=== PATIENT | female | born 1965 | race Hispanic/Latino ===

== ENCOUNTER 2016-09-24 11:43 | Emergency (ER) | payer MEDICARE, MEDICAID ==
[~2016-09-24] VITALS: Ht 160 cm; Wt 0.6 kg
[~2016-09-24 11:43] MED LIST: AMLO10TA5 PO; ASPI-351 PO; CARV12.5 PO; CITA10TA14 PO; FES300 PO; FURO20TA PO; INSLIS SQ; INSU100V10 SQ; LOSA1TAB69 PO; sodium bicarbonate PO
[2016-09-24 11:54] VITALS: BP 154/84; PULSE 83; RESP 18; O2SAT 99
--- NOTE | 2016-09-24 12:20 | ED.REPORT ---
HPI-Extremity Problem Upper Date of Service September 24, 2016 ED Provider: History of Present Illness: left index finger swelling. bites fingers. Dr. Tong at [facility] is primary care. Has an appointment on 10/05/2016. squeezed it doing ice. right hand dominant. 9/10 pain. Has been ongoing for a week. Nursing Notes Stated Complaint: INFECTION ON LEFT INDEX FINGER Chief Complaint: General Complaint Nursing Notes Reviewed: Yes Allergies: Coded Allergies: niacin (Verified Allergy, Unknown, UNKNOWN, 09/24/16) Scheduled ([sodium bicarbonate]) 1,300 MG PO BID AmLODIPine-Expunged Drug, Do Not Renew! (AmLODIPine-Expunged Drug, Do Not Renew! ) 10 Mg Tablet 10 MG PO DAILY Aspirin-Expunged Drug, Do Not Renew! (Aspirin-Expunged Drug, Do Not Renew!) 325 Mg Tablet 325 MG PO DAILY Carvedilol-Expunged Drug, Do Not Renew! (Carvedilol-Expunged Drug, Do Not Renew! ) 12.5 Mg Tablet 25 MG PO BID Citalopram-Expunged Drug, Do Not Renew! (Citalopram-Expunged Drug, Do Not Renew! ) 10 Mg Tablet 10 MG PO DAILY Ferrous Sulfate-Expunged Drug, Do Not Renew! (Feosol-Expunged Drug, Do Not Renew !) 325 Mg Tablet 325 MG PO TID Furosemide-Expunged Drug, Do Not Renew! (Lasix-Expunged Drug, Do Not Renew!) 20 Mg Tablet 40 MG PO TID INSULIN GLARGINE-Expunged Drug, Do Not Renew! (Lantus-Expunged Drug, Do Not Renew!) 100 Unit/1 Ml Vial 100 U SQ HS Insulin Lispro-Expunged Drug, Do Not Renew! (Humalog-Expunged Drug, Do Not Renew !) 100 U/Ml Vial 15-30 U SQ 10 mins before meals Losartan/HCTZ-Expunged Drug, Do Not Renew! (Losartan/HCTZ 50/12.5-Expunged, Do Not Renew!) 1 Each Tablet 1 EACH PO BID General Time Seen by MD: 12:19 Chief Complaint Finger injury left 2 Hx Obtained From: Patient Onset Occurred: 1 week ago Past Medical History Past Medical History Notes: PCP: Dr. Ashley Wetzel Quality Improvement Specialist: Dr. Hanson Past Medical History anemia, severe CVA peritonitis Reports: Diabetes mellitus, Hypertension, Stroke Reports: Renal failure Past Surgical History fistula x 2 PD cather throat abscess Reports: Gastric bypass, Tubal ligation Smoking History Former Smoker Social History Alcohol Use: "Social" Drug Use: Denies drug use Other Social History: Occupation seperated, no work or school 09/24/2016 Ambulatory Status Independent Review of Systems Basic Review of Systems Eyes: Vision NL, No discharge : No dysuria, No frequency Psychiatric: Normal thought content Physical Exam Initial Vital Signs Vital Signs (First) Date Time Temp Pulse Resp B/P Pulse Ox O2 Delivery O2 Flow Rate FiO2 09/24/16 11:54 36.9 83 18 154/84 99 Room Air Initial VS: Reviewed, Vital signs normal General/Constitutional: Well-developed, Well-nourished Head / Eyes: Atraumatic, Normocephalic, PERRL ENT: Mucous membranes moist, Conjunctiva normal, No scleral icterus Neck: Supple, Non-tender, Full range of motion Respiratory: Breath sounds normal, Clear to auscultation, No respiratory distress Cardiovascular: Regular rate & rhythm, Heart sounds normal, Intact distal pulses Abdomen / GI: Soft, Non-tender, No guarding, No rebound, No distention Back: No CVA tenderness Lymphatic: No lymphadenopathy Lower Extremities: Vascular intact, Neuro intact, No swelling, No tenderness Skin: Warm, Dry, No cyanosis Neurologic: Alert, Oriented, Nonfocal Psychiatric: Mood/affect normal, Behavior normal, Normal thought content General/Constitutional: Awake, Alert, No acute distress, Well appearing, Well developed, Well hydrated, Well nourished, Cooperative, Not toxic appearing Respiratory / Chest: Atraumatic, Breath sounds NL, Breath sounds = bilat, No respiratory distress Cardiovascular: Heart rate NL, Regular rhythm, Heart sounds NL, No gallop left index finger tip has mild swelling. no erthyma or increased warmth. fingernail has ecchymosis under nail. patient does not remember any injury Interpretation & Diagnostics X-Ray Interpretation Xray Interpretation: PROCEDURE: CT BRAIN WITHOUT CONTRAST ([id number]) INDICATIONS: sleepy TECHNIQUE: Noncontrast 4.5 mm thick angled axial sections acquired from the foramen magnum to the vertex, with coronal reformats. COMPARISON: [facility], CT, BRAIN ([facility]), 08/31/2015, 10:41. FINDINGS: Image quality: Diagnostic. Brain: There is no acute intra-axial or extra-axial hemorrhage. No extra-axial fluid collection is identified. There is no midline shift or mass effect. The orbits are grossly unremarkable. No large areas of diffusely decreased attenuation are evident within the brain to suggest diffuse cerebral edema. Scattered focal and small confluent areas of low-attenuation are present within the periventricular and deep white matter of the supratentorial brain, which has a similar appearance to the prior study. The ventricles and cortical sulci are moderately prominent. Bones: Calvarium and visualized facial bones are grossly intact. The imaged paranasal sinuses and mastoid air cells are clear. IMPRESSION: 1. No acute intracranial hemorrhage. 2. Chronic small vessel ischemic changes are similar to the prior study. 3. Parenchymal volume loss with moderate ventricular prominence is similar to prior studies. Please correlate clinically to exclude the possibility of normal pressure hydrocephalus. Dictated by: David Gutierrez M.D. on 09/24/2016 at 12:57 Approved by: David Gutierrez M.D. on 09/24/2016 at 12:59 Re-Eval/Medical Decision Med Decision/Clinical Course 51 year old female presents to the ER for evualation of left finger tip pain. Pain has been ongoing for a week. Patient has attempted squeezing with no relief. X-ray indicates a tuft fracture. No skin signs of infection. No sign of compartment syndrome. Discharge & Departure Impression: Primary Impression: Closed fracture of tuft of distal phalanx of finger Encounter type: initial encounter Qualified Code: S62.639A - Displaced fracture of distal phalanx of unspecified finger, initial encounter for closed fracture Disposition: Home Patient Instructions: Finger Fracture (ED) Additional Instructions: X-ray indicates a finger fracture. You are being splinted. There is no sign of infection at this time. Do not chew your fingers or squeeze them. Seek medical care sooner than later. Can use ibuprofen 600 mg 3 times a day for 5 days. Can use hydrocodone 1 at night as needed for severe unrelenting pain. Please call Dr. Chopra for follow up. I am sorry this happened. Referrals: Ashley Wetzel MD (PCP) Artie Chopra MD EDSupervising Provider for APC: James Steel MD copies to: Ashley Wetzel MD; Artie Chopra MD, Sue ARNP September 24, 2016 12:20
--- NOTE | 2016-09-24 13:30 | DRSVH ---
PROCEDURE: X-RAY FINGERS, TWO VIEWS INDICATIONS: pain swelling TECHNIQUE: AP hand, 2 views of the second finger(s) acquired. COMPARISON: None. FINDINGS: Bones: There is tuft fracture of the second distal phalanx. No suspicious bony lesions. Soft tissues: No suspicious soft tissue calcifications. Vascular calcification consistent with athe rosclerosis. Soft tissue swelling in the distal second finger. IMPRESSION: Tuft fracture of the second distal phalanx. Dictated by: Corine Vazquez M.D. on 09/24/2016 at 13:26 Approved by: Corine Vazquez M.D. on 09/24/2016 at 13:28
[2016-09-24 15:23] VITALS: BP 200/95; PULSE 74; O2SAT 100
== END 2016-09-24 15:20 | disposition home or self-care (01) ==
LOC: SED 11:43
DX: S62.631A Displaced fracture of distal phalanx of left index finger, initial encounter for closed fracture (principal); X58.XXXA Exposure to other specified factors, initial encounter; Y93.89 Activity, other specified; Y92.89 Other specified places as the place of occurrence of the external cause; Y99.8 Other external cause status; I10 Essential (primary) hypertension; E11.9 Type 2 diabetes mellitus without complications; Z86.73 Personal history of transient ischemic attack (TIA), and cerebral infarction without residual deficits; Z87.891 Personal history of nicotine dependence; Z88.8 Allergy status to other drugs, medicaments and biological substances

== ENCOUNTER 2017-01-15 15:08 | Inpatient (IN) | payer MEDICARE, MEDICAID ==
[~2017-01-15] VITALS: Ht 160 cm; Wt 58.6 kg
[2017-01-15 15:13] VITALS: BP 170/96; PULSE 82; RESP 15; O2SAT 99
--- NOTE | 2017-01-15 15:18 | ED.REPORT ---
HPI-General Illness Date of Service Jan 15, 2017 ED Provider: Dr. Abrams Pt is a 51 y/o female w/ a hx of ESRD on PD daily, HTN, DM, CVA, gastric bypass in 2014, prior peritonitis (2/2 PD catheter), presenting to the ED with her c/o intermittent band-like upper abdominal pain onset yesterday. The patient has been experiencing intermittent, severe, band-like upper abdominal pain for 2 days which is exacerbated by eating or drinking. Pt c/o associated nausea, vomiting. She noticed a very small amount of pink blood in her vomit. Her pain is relieved by Aleve for which she has been taking 2 of every 2 hours despite knowing that it is bad for her renal failure. Pt denies fever, chills. She still makes urine. Nursing Notes Stated Complaint: SEVERE ABDOMINAL PAIN Chief Complaint: Female Abdominal Pain Nursing Notes Reviewed: Yes Allergies: Coded Allergies: niacin (Verified Allergy, Unknown, UNKNOWN, 09/24/16) Scheduled Aspirin Chew (Aspirin Chew) 81 Mg Chew 81 MG PO DAILY Calcium Acetate (Calcium Acetate) 667 Mg Capsule 6 CAPSULE PO TID Losartan Potassium (Losartan Potassium) 50 Mg Tablet 50 MG PO DAILY Ondansetron (Ondansetron) 4 Mg Tablet 4 MG PO TID Venlafaxine (Venlafaxine) 25 Mg Tablet 25 MG PO HS Scheduled PRN Gabapentin (Gabapentin) 300 Mg Capsule 300 MG PO HS PRN PRN For Pain Ropinirole (Ropinirole) 1 Mg Tablet 1 MG PO HS PRN PRN For Pain oxyCODONE-Acetaminophen 5-325 mg (oxyCODONE-Acetaminophen 5-325 mg) 1 Each Tablet 1-2 TABLET PO every 4-6hrs PRN PRN For Pain General Time Seen by MD: 15:17 Chief Complaint Abdominal pain Hx Obtained From: Patient Arrived By: Walk-in Sudden in Onset?: No Onset Occurred: Yesterday Symptom Duration: Intermittent Location: : Abdomen Quality: Painful Severity: Current: Mild Severity: Maximum: Severe Similar Sx Previous: No Past Medical History Past Medical History Notes: PCP: Dr. Ashley Wetzel Tape Recorder Mechanic: Dr. Hanson Past Medical History Hx severe anemia CVA Hx peritonitis ESRD on PD daily Hypertension Diabetes Past Surgical History fistula x 2 PD cather throat abscess gastric bypass 2015 Tubal ligation Smoking History Former Smoker Social History Alcohol Use: "Social" Drug Use: Denies drug use Other Social History: Occupation seperated, no work or school 09/24/2016 Ambulatory Status Independent Review of Systems Full Review of Systems Constitutional: Denies: Chills, Fever GI: Reports: Abdominal pain, Hematemesis, Nausea, Vomiting Complete sys rev & neg: except as marked. Physical Exam Vital Signs Vital Signs Date Time Temp Pulse Resp B/P Pulse Ox O2 Delivery O2 Flow Rate FiO2 01/15/17 15:13 36.4 82 15 170/96 99 Room Air Initial VS: Reviewed, Vital signs abnormal Head / Eyes: Atraumatic, Normocephalic ENT: Mucous membranes moist, Conjunctiva normal Neck: Full range of motion Respiratory: Breath sounds normal, Clear to auscultation, No respiratory distress Cardiovascular: Regular rate & rhythm, Heart sounds normal, Intact distal pulses Extremities: Vascular intact, Neuro intact, No swelling Skin: Warm, Dry, No cyanosis Neurologic: Alert, Oriented, Nonfocal Psychiatric: Mood/affect normal, Behavior normal, Normal thought content General/Constitutional: Awake, Alert, No acute distress, Cooperative, Not toxic appearing Appearance / Presentation: Positive: Uncomfortable Abdomen: Atraumatic, Soft, No guarding, No rebound, No distention, No palpable mass PD cath in the RLQ without surrounding erythema or purulent discharge Well healed laparoscopic scars Diffuse tenderness mostly about the epigastrium and around the periumbilical region Interpretation & Diagnostics Lab Results Interpretation Result Diagram: 01/15/17 1556 01/15/17 1556 Test 01/15/17 15:56 01/15/17 16:35 White Blood Count 5.1th/mm3 (3.8-10.1) Red Blood Count 3.88mil/mm3 (3.90-5.20) Hemoglobin 11.5g/dL (12.0-15.6) Hematocrit 35.6% (35.0-46.0) Mean Corpuscular Volume 91.8fL (81-100) Mean Corpuscular Hemoglobin 29.6pg (27.0-35.0) Mean Corpuscular Hemoglobin Concent 32.3% (32.0-37.0) Red Cell Distribution Width 12.8% (12.3-15.4) Platelet Count 275bil/L (150-400) Neutrophils (%) (Auto) 61.9% (40-74) Lymphocytes (%) (Auto) 23.9% (14-46) Monocytes (%) (Auto) 7.3% (4-12) Eosinophils (%) (Auto) 5.7% (0-5) Basophils (%) (Auto) 1.2% (0-3) Sodium Level 141mEq/L (134-144) Potassium Level 4.2mEq/L (3.5-5.2) Chloride Level 107mEq/L (97-108) Carbon Dioxide Level 18mmol/L (18-29) Blood Urea Nitrogen 37mg/dL (6-24) Creatinine 6.30mg/dL (0.57-1.00) Estimat Glomerular Filtration Rate 10mL/min (>59) Glucose Level 98mg/dL (60-99) Lactic Acid Level 1.2mmol/L (0.4-2.0) Calcium Level 7.8mg/dL (8.5-10.1) Magnesium Level 2.4mg/dL (1.6-2.6) Total Bilirubin 0.2mg/dL (0.0-1.2) Aspartate Amino Transf (AST/SGOT) 13U/L (0-50) Alanine Aminotransferase (ALT/SGPT) 15U/L (0-32) Alkaline Phosphatase 62U/L (25-150) Total Protein 5.6g/dL (6.4-8.4) Albumin 2.6g/dL (3.4-5.0) Lipase 61U/L (13-60) Hold Vazquez Top Tube Received (Received) Hold Urine Received (Received) CT Abd / Pelvis Interpretation IMPRESSION: 1. In the absence of contrast, no acute findings to explain epigastric and periumbilical abdominal pain. 2. Trace free abdominal and pelvic fluid, expected with peritoneal dialysis catheter. Dictated by: Daniel Matias M.D. on 01/15/2017 at 16:46 Approved by: Daniel Matias M.D. on 01/15/2017 at 16:54 Study type: Abdominal CT no contrast Interpretation / Wet Read by: Interpret - Radiologist Re-Eval/Medical Decision Med Decision/Clinical Course Pt is a 51 y/o female w/ a hx of ESRD on PD daily, HTN, DM, CVA, gastric bypass in 2014, prior peritonitis (2/2 PD catheter), presenting to the ED with her c/o intermittent band-like upper abdominal pain onset yesterday. Patient has never had pain like this before. The pain is worse with eating and associated with nausea. Patient has been taking copious amounts of Aleve ever since her pain started. She reports taking 2 tablets of Aleve every 2 hours for the last 2 days despite previously being told not to take NSAIDs due to her underlying renal disease. Upon arrival in the emergency department the patient appears quite uncomfortable with diffuse abdominal tenderness most notable in the epigastrium. Meds given: IVF, IV Zofran, 40 mg IV pantoprazole, Dilaudid Labs notable as below: CBC: unremarkable CMP: BUN 37 near baseline, creatinine 6.3 near baseline, Lipase mildly elevated at 61 Given patient's location of pain, history of gastric bypass and very excessive NSAID use I am concerned for possible peptic ulcer disease or even perforated ulcer. Differential diagnosis also includes peritonitis secondary to indwelling peritoneal dialysis catheter. The patient is less suggestive of acute biliary disease though this also remains on the differential diagnosis. CT abdomen and pelvis without contrast obtained as below: 1. In the absence of contrast, no acute findings to explain epigastric and periumbilical abdominal pain. 2. Trace free abdominal and pelvic fluid, expected with peritoneal dialysis catheter.` While this imaging study is somewhat reassuring given the fact that the patient has an indwelling catheter makes it very difficult to rule out free air secondary to perforated ulcer. That being said, my suspicion at this time for perforated ulcer is relatively low. I remain concerned about bacterial peritonitis and peritoneal fluid has been sent from the patient's PD catheter for cell count, differential, Gram stain and culture. Patient was discussed with him and he would like to be called back with these results prior to the patient being initiated on antibiotics. Given my concern for gastric etiologies of the pain, especially in the setting of previous gastric bypass surgery patient was discussed with GI collection clerk. They would like the patient admitted to the hospital with plan for endoscopy in the morning and right upper quadrant ultrasound to rule out any biliary etiologies. All the workup is not entirely complete this patient will require admission regardless of the outcome of these studies. Patient was signed out to the accepting hospitalist with plan to follow-up results of peritoneal fluid studies and discussed this with nephrology as well as upper endoscopy in the morning. Antibiotics were held for the moment pending results of peritoneal fluid. Patient remained stable and in no apparent distress reported significant symptom improvement after the above medications. Transferred in stable condition. Source of Hx: Old records Time of Eval: 17:17 Re-Evaluation/Progress Note: Pt rechecked. Remains tender with some pain. Informed pt of need for admission. Pt understands and agrees with plan for admission. All questions addressed. Consultation #1: Referral / Consult Name: Kedar Powers DO Consulted With: Nephrology Call Returned at: 17:15 Plant Protection Guard: Agrees with eval, Agrees with plan Note: Recommends send peritoneal fluid for cell count, diff, and culture Consultation #2: Referral / Consult Name: Meng Hernandez MD Call Returned at: 17:18 Plant Protection Guard: Agrees with eval, Agrees with plan Note: Consulted GI. Recommends Protonix, Carafate, US abdomen, will scope tomorrow Consultation #3: Referral / Consult Name: Kushal Coon Consulted With: Hospitalist Call Returned at: 17:29 Plant Protection Guard: Will see patient, Agrees with eval, Agrees with plan, Accepts admit Counseled Regarding: Diagnosis, Lab results, Need for admission Discharge & Departure Primary Impression: Abdominal pain Abdominal location: epigastric Qualified Code: R10.13 - Epigastric pain Additional Impressions: Excessive use of nonsteroidal anti-inflammatory drugs (NSAIDs) ESRD (end stage renal disease) Patient on peritoneal dialysis History of gastric bypass Disposition: ADMITTED TO HOSPITAL Discharge Condition All VS Reviewed: Yes Condition: Stable Referrals: Karina Tong DO (PCP) Scribe Attestation Portions of this note were transcribed by Santos Suh. I, Dr. Abrams personally performed the history, physical exam and medical decision-making; I reviewed and confirmed the accuracy of the information in the transcribed note. copies to: Karina Tong Beck O MD Jan 15, 2017 15:18 SANTOS SUH Jan 15, 2017 16:02
[2017-01-15] MEDS ORDERED: ROPI1TAB3 PO (15:53)
[2017-01-15] MEDS ORDERED: CALC667C9 PO (15:53)
[2017-01-15] MEDS ORDERED: GABA-502 PO (15:53)
[2017-01-15] MEDS ORDERED: ONDA-53 PO (15:53)
[2017-01-15] MEDS ORDERED: VENL25TA4 PO (15:53)
[2017-01-15] MEDS ORDERED: OXYC1TAB24 PO (15:53)
[2017-01-15] MEDS ORDERED: LOSA50TA37 PO (15:53)
[2017-01-15] MEDS ORDERED: ASPI81TA3 PO (15:53)
[2017-01-15] MEDS ORDERED: Pantoprazole 4 mg/mL 10 mL Inj IVPUSH ONE ×3 (16:05→20:35)
[2017-01-15] MEDS ORDERED: Ondansetron 2 mg/mL 2 mL Inj IVPUSH ONE (16:05)
[2017-01-15] MEDS ORDERED: 0.9% Sodium Chloride 1,000 ML IV ONE (16:05)
[2017-01-15 16:07] LABS: BASOPHILS % (AUTO) 1.2 % (0-3); EOSINOPHILS % (AUTO) 5.7 % (0-5); MONOCYTES % (AUTO) 7.3 % (4-12); Mean Corpuscular Hemoglobin 29.6 pg (27.0-35.0); Mean Corpuscular Volume 91.8 fL (81-100); NEUTROPHILS % (AUTO) 61.9 % (40-74); Platelet Count 275 bil/L (150-400)
[2017-01-15 16:27] LABS: Magnesium 2.4 mg/dL (1.6-2.6)
[2017-01-15] MEDS: HYDROmorphone 0.5 mg/0.5 mL iSecure Syringe IVPUSH PRN ×2 (16:27→19:42)
--- NOTE | 2017-01-15 16:56 | DRSVH ---
PROCEDURE: CT KUB ([id number]) INDICATIONS: 51 year-old female with end-stage renal disease and prior gastric bypass surgery, now wi th epigastric and periumbilical abdominal pain. TECHNIQUE: Noncontrast 5 mm thick sections acquired from the diaphragms to the symphysis. 5 mm thick coronal an d sagittal reformats were then performed. For radiation dose reduction, the following was used: aut omated exposure control, adjustment of mA and/or kV according to patient size. COMPARISON: [facility], CT, CT KUB, 02/28/2015, 7:08. FINDINGS: Image quality: Excellent. Lung bases: Lung bases are clear. Heart size is normal. Urinary system: Both kidneys are normal in size. No kidney stones. No hydronephrosis or perinephri c fat stranding. Both ureters appear non-dilated throughout their expected courses. Bladder wall th ickness is normal; no calcified bladder stones. Other solid organs: Liver and spleen are normal in size. Gallbladder wall thickness is normal. Vincent creas is normal in contours. No adrenal nodules. Peritoneum and bowel: Unenhanced bowel loops demonstrate normal wall thickness and caliber. The jayesh ent is status post gastric bypass surgery. There is small free abdominal and pelvic fluid. No free ai r. Nodes and vessels: No retroperitoneal or mesenteric adenopathy by size criteria. Aorta and inferior vena cava are normal in caliber, with aortoiliac atherosclerosis. There is extensive small vessel at herosclerosis as well, consistent with background diabetes mellitus and/or secondary hyperparathyroid ism in the setting of end-stage renal disease. Abdominal wall: No ventral hernias. Right periumbilical peritoneal dialysis catheter is again noted . Pelvis: No free pelvic fluid. No inguinal hernias or adenopathy. Uterus is normal in size, with in trauterine contraceptive device again noted. The ovaries are not well seen. Bones: No suspicious bony lesions. No vertebral body compression fractures. IMPRESSION: 1. In the absence of contrast, no acute findings to explain epigastric and periumbilical abdominal pa in. 2. Trace free abdominal and pelvic fluid, expected with peritoneal dialysis catheter. Dictated by: Daniel Matias M.D. on 01/15/2017 at 16:46 Approved by: Daniel Matias M.D. on 01/15/2017 at 16:54
[2017-01-15] MEDS ORDERED: Alum-Mag Hydrox-Simeth 30 mL Suspension PO PRN ×2 (17:25→19:35)
[2017-01-15] MEDS ORDERED: Ondansetron 2 mg/mL 2 mL Inj IVPUSH PRN ×2 (17:25→19:35)
[2017-01-15] MEDS: Sucralfate 100 mg/mL 10 mL Suspension PO SCH (18:01)
[2017-01-15 19:20] VITALS: BP 185/94; PULSE 69; RESP 18; O2SAT 99
[2017-01-15] MEDS ORDERED: LidocaineVisc 2%:Antacid 1:1 10 mL Syringe PO ONE (19:35)
--- NOTE | 2017-01-15 19:57 | PCM.HPMED ---
Subjective Date of Service Jan 15, 2017 Primary Provider: Admitting Physician: Kobe Vieira MD Primary Care Physician: Karina Tong DO Attending Physician: Kobe Vieira MD Admit Status: From the Emergency Department Chief Complaint: Periumbilical and epigastric abdominal pain, nausea, with very small blood- tinged vomiting History of Present Illness: This is a pleasant 51 y/o female with hx of chronic ESRD on daily peritoneal dialysis since 2011, (history of left wrist fistula failure early 2011, history of left antecubital fossa fistula which is functional but not utilized since 2011),with baseline creatinine of 6.7 in December 2016, history of HTN on losartan 50 mg daily, DM type 2 diagnosed age 28 and was on insulin until her gastric bypass, currently not on anti-glycemic medications (patient states she now has a history of hypoglycemic events rather than hyperglycemic events), history of CVA 2009, gastric bypass in 2012, prior peritonitis secondary to PD catheter 2013, and chronic back pain on Percocet 09/08/2024 milligram tablets every 4 hours, who presented with complaint of intermittent band-like upper abdominal pain and periumbilical pain onset Tuesday morning, 01/14/2017. The patient had been experiencing intermittent, severe stabbing and cramping, band- like upper abdominal pain for 2 days which is exacerbated by eating or drinking. Patient described pain as 10 out of 10 in the emergency department. Patient's pain is currently 8 out of 10 on 0.5 mg of IV Dilaudid. Associated symptoms included nausea, vomiting. Patient had vomited once this morning and then again once this evening with a very small amount of pink blood in her vomit. She has never experienced blood in her vomitus prior. Of note patient does have a history of intractable nausea and vomiting after eating. Her abdominal pain is relieved by NSAIDs medication (Aleve) 4 Aleve today and 8 Aleve yesterday despite knowing that it is bad for her renal failure. Of note patient reports a very high blood pressure reading of 298/198 at home prior to presenting to the ED. Patient states that her blood pressures have been high for the past 24 hours or so and she took a double dose of her losartan blood pressure medication today. Patient utilizes her own home blood pressure cuff. Here patient's blood pressures have been 200 systolic. Patient denied fever, chills, rigors, sweats, shortness of breath, cough, dyspnea, chest pain, known family history of tuberculosis, personal history of tuberculosis, constipation, diarrhea, dysuria, hematuria, melena, hematochezia. She still makes urine, and reports orange colored urine since having taken an [id number] medication , she thought she might have a urinary tract infection. Patient is a nonsmoker , denies drug use, rarely drinks a glass of wine. Patient was temporarily taken off of the kidney transplant list given her current medical condition. Of note patient was seen by GI in 12/29/[address] Hamilton for persistent and refractory nausea vomiting, which typically is sudden in onset when it occurs and associated with eating food. Dr. Hamilton had planned on doing an EGD and that was scheduled for January 20. Per his note on 12/29/2016 the patient typically continues to vomit until her stomach is emptied. Her symptoms are typically improved with antinausea medication. Patient did have a EGD done prior by Dr. Graham 2012. EGD at that time showed a small erosion in the duodenum, as well as esophagitis. In the ED: Both nephrology and GI were consulted. The patient peritoneal fluid from peritoneal dialysis catheter has been sent for cell count, differential, Gram stain and culture,and patient was placed on IV Protonix for suspected upper GI bleed given history of gastric ulcers and NSAID use. CT KUB showed: In the absence of contrast, no acute findings to explain epigastric and periumbilical abdominal pain. Trace free abdominal and pelvic fluid, expected with peritoneal dialysis catheter. Patient received single 1 L IV fluids normal saline, dose of IV Protonix 40 mg. 1000 mg of Carafate, Zofran IV and IV Dilaudid for pain. Vital signs: Showed temperature 36.5, pulse 69, respiratory rate 18, BP 185/94 map 124, O2 99% on room air. Hemogram showed: CBC is 5.1, PMNs 61.9% without evidence of bands, H/H was 11.5/ 35.6, platelets were normal at 275, patient did have elevated eosinophils 5.7 Chemistry panel: A BUN of 37, creatinine 6.30 in a patient with a baseline creatinine of 6.7 back in December. Lactic acid was 1.2, calcium was low at 7.8 Review of Systems: A comprehensive review of systems was conducted and was negative except as mentioned in history of present illness. Allergies Coded Allergies: niacin (Verified Allergy, Unknown, UNKNOWN, 09/24/16) Home Medications Scheduled Aspirin Chew (Aspirin Chew) 81 Mg Chew 81 MG PO DAILY Calcium Acetate (Calcium Acetate) 667 Mg Capsule 6 CAPSULE PO TID Losartan Potassium (Losartan Potassium) 50 Mg Tablet 50 MG PO DAILY Ondansetron (Ondansetron) 4 Mg Tablet 4 MG PO TID Venlafaxine (Venlafaxine) 25 Mg Tablet 25 MG PO HS Scheduled PRN Gabapentin (Gabapentin) 300 Mg Capsule 300 MG PO HS PRN PRN For Pain Ropinirole (Ropinirole) 1 Mg Tablet 1 MG PO HS PRN PRN For Pain oxyCODONE-Acetaminophen 5-325 mg (oxyCODONE-Acetaminophen 5-325 mg) 1 Each Tablet 1-2 TABLET PO every 4-6hrs PRN PRN For Pain PMH Hx severe anemia CVA 2009 Hx peritonitis 2013 ESRD on PD daily Hypertension Diabetes2 not on insulin not on diabetic medication, with associated neuropathy Carotid artery stenosis IUD Chronic kidney disease stage IV Surgical History fistula x 2 Currently with PD cather throat abscess gastric bypass 2013 Tubal ligation Family History No family history of TB Social History Hx Alcohol Use: Yes (0.5 glass wine on special occasions) Hx Substance Use: No Hx Tobacco Use: Yes (20 YEARS AGO SMOKED. ) Smoking Status: Former Smoker Living Arrangement: with Family Exam Vital Signs Vital Sign - Last Date Time Temp Pulse Resp B/P Pulse Ox O2 Delivery O2 Flow Rate FiO2 01/15/17 19:20 36.5 69 18 185/94 99 Room Air Exam General: Alert Oriented 3 no acute distress, speaking full sentences, no apparent distress but complaining of abdominal pain 8 out of 10 HEENT: NC/AT, eyes, PERRLA, EOMI, positive scleral icterus, neck, soft supple, no adenopathy, no JVD, no masses, no thyromegaly, throat mucous membranes pink and moist, no erythema, no exudates, no tonsillar swelling, no uvular deviation. Lungs: CTAB all pitt, no wheezes, no rhonchi, no crackles, no adventitious lung sounds, no use of accessory muscles of respiration, good air movement, good respiratory effort. Heart: Regular rate and rhythm, no murmur, S1-S2 present, no rub, no click, no distant heart sounds, radiation fistula sounds from left extremity to the chest. Abdomen: Soft, diffusely tender especially involving the periumbilical and epigastric areas as well as right lower quadrant, nondistended, bowel sounds active, no rebound, voluntary guarding, she has a peritoneal dialysis catheter placed in the right lower quadrant. Genitourinary: No CVA tenderness, no suprapubic tenderness, no Mckeon catheter, Extremities: Patient has a left upper extremity fistula that is functional, a failed left wrist fistula scar, there is a peripheral line in the right antecubital fossa, pulses equal and symmetric upper/lower extremity including radial and dorsalis pedis, no edema Neurologic: Grossly neurologically intact, PT in full sentences, no focal neurological signs Skin: Warm dry and intact without rash Psychiatric: Mood is cheerful and mood and affect are congruent and appropriate. Lab and Diagnostics Result Diagram: 01/15/17 1556 01/15/17 1556 X-Rays, CTs and MRIs Date of Service: 01/15/17 PROCEDURE: CT KUB INDICATIONS: 51 year-old female with end-stage renal disease and prior gastric bypass surgery, now with epigastric and periumbilical abdominal pain. FINDINGS: Image quality: Excellent. Lung bases: Lung bases are clear. Heart size is normal. Urinary system: Both kidneys are normal in size. No kidney stones. No hydronephrosis or perinephric fat stranding. Both ureters appear non-dilated throughout their expected courses. Bladder wall thickness is normal; no calcified bladder stones. Other solid organs: Liver and spleen are normal in size. Gallbladder wall thickness is normal. Pancreas is normal in contours. No adrenal nodules. Peritoneum and bowel: Unenhanced bowel loops demonstrate normal wall thickness and caliber. The patient is status post gastric bypass surgery. There is small free abdominal and pelvic fluid. No free air. Nodes and vessels: No retroperitoneal or mesenteric adenopathy by size criteria. Aorta and inferior vena cava are normal in caliber, with aortoiliac atherosclerosis. There is extensive small vessel atherosclerosis as well, consistent with background diabetes mellitus and/or secondary hyperparathyroidism in the setting of end-stage renal disease. Abdominal wall: No ventral hernias. Right periumbilical peritoneal dialysis catheter is again noted. Pelvis: No free pelvic fluid. No inguinal hernias or adenopathy. Uterus is normal in size, with intrauterine contraceptive device again noted. The ovaries are not well seen. Bones: No suspicious bony lesions. No vertebral body compression fractures. IMPRESSION: 1. In the absence of contrast, no acute findings to explain epigastric and periumbilical abdominal pain. 2. Trace free abdominal and pelvic fluid, expected with peritoneal dialysis catheter. Dictated by: Daniel Matias M.D. on 01/15/2017 at 16:46 Approved by: Daniel Matias M.D. on 01/15/2017 at 16:54 Assessment & Plan This is a pleasant 51-year-old female history of end-stage renal disease on daily peritoneal dialysis, hypertension, diabetes, history of CVA gastric bypass in 2012 with a prior history of peritonitis from peritoneal dialysis catheter who presented to the ED with acute onset intermittent bandlike upper abdominal and epigastric pain. Associated with pink blood-tinged vomitus. Patient was admitted for possible GI bleed and acute bacterial peritonitis. # Acute abdominal pain, POA - Perforated viscus is difficult to rule out given history of abdominal peritoneal dialysis. GI was consulted. Placed on Protonix drip. - Suspect acute GI bleed secondary to history of ulcers and NSAID use. - Vital signs: Showed temperature 36.5, pulse 69, respiratory rate 18, BP 185/ 94 map 124, O2 99% on room air. - Hemogram showed: CBC is 5.1, PMNs 61.9% without evidence of bands, H/H was 11.5/35.6, platelets were normal at 275, patient did have elevated eosinophils 5.7 - CT KUB showed: In the absence of contrast, no acute findings to explain epigastric and periumbilical abdominal pain. Trace free abdominal and pelvic fluid, expected with peritoneal dialysis catheter. - History of esophagitis and duodenal ulcer on EGD in [address] Grhaam - She was seen by Dr. Hamilton in December of this year who planned on doing EGD at that time, secondary to intractable nausea and vomiting. - GI was consulted in the ED and recommended EGD, Protonix drip. EGD in the morning. - Nothing by mouth - Abdominal ultrasound to rule out biliary etiologies - Patient currently nothing by mouth for procedure - Started Protonic drip # End stage renal disease on peritoneal dialysis daily, POA - Patient gets daily peritoneal dialysis since 2011, with PD catheter placed in the right lower quadrant. She has functional left upper extremity fistula although this is not utilized. - Patient reports 2 days of taking NSAID Aleve for her abdominal pain. - High suspicion for acute bacterial peritonitis despite normal white blood cell count remains. Peritoneal dialysis fluid was sent for cell count, differential, Gram stain and culture per nephrology recommendation. - Nephrology Dr. Powers to be notified by phone of the results prior to starting antibiotics. - Patient's baseline creatinine is 6.7 in December 2016, currently creatinine of 6.5. - Chemistry panel for: A BUN of 37, creatinine 6.30 in a patient with a baseline creatinine of 6.7 back in December. Lactic acid was 1.2, calcium was low at 7.8 - Nephrology has been consulted by phone and is aware of the patient. - KUB CT showed no peritoneal fluid, the abdomen was not tapped. # Hypocalcemia, POA - Likely secondary to chronic kidney disease - Total protein 5.6, albumin 2.6 # Mildly elevated lipase, POA - Lipase 61 # Hypoglycemia, POA - History of Diabetes mellitus, previously on insulin. She states since she had her gastric bypass she is not required insulin or diabetic medications and has problems with hypoglycemia - Fingerstick glucose on admit 70 - D50 once with Finger stick glucose in 2 hours Chronic problems #Hx severe anemia - Likely secondary to end-stage renal disease # Hx of CVA - On aspirin 81 mg at home - We will hold aspirin for now, and restart as soon as GI bleed ruled out # Hx peritonitis - 2013 # Hypertension - Patient on losartan 50 mg at home daily - We will continue losartan - She reports she took 2 on day of admission for blood pressures to 298/190, - Gave labetalol 20 mg IV once for blood pressure 205 systolic - We will continue to monitor blood pressures # Diabetes mellitus - Not currently on insulin ordered antidiabetic medication - Now she has a problem with hypoglycemia - Fingerstick glucose on admit 70 - D50 once with Finger stick glucose in 2 hours # Chronic pain - On Percocet 09/08/2024 at home every 4 hours, will hold by mouth meds for expected upper endoscopy in the morning Disposition: Admitted to in patient service with expected length of stay greater than 2 days, secondary to severity of presenting symptoms, treatment plan, complexity of clinical work up, and risk of adverse events. CODE STATUS: Full code PCP: Dr. Ashley Wetzel [employer] Operator: Dr. Hanson Urologist Dr. Solis DVT PE prophylaxis: SCD's Contact: Willis Carrera [phone] VTE Prophylaxis: SCDs Resuscitation Status: CPR: Attempt Resuscitation Attending Statement The patient was seen and examined together with Dr. Cheung on 01/15 and I agree with the history, exam and plan as outlined in the note above. Robinson Cheung DO Jan 15, 2017 19:57 Kobe Vieira MD Jan 16, 2017 03:37
--- NOTE | 2017-01-15 20:25 | DRSVH ---
PROCEDURE: US ABDOMEN, LIMITED ([id number]) INDICATIONS: 51 year-old female with right upper quadrant abdominal pain. Assess for gallstones. TECHNIQUE: Real-time focused scanning was performed of the abdomen, with image documentation. COMPARISON: [facility], CT, CT KUB, 01/15/2017, 16:24. FINDINGS: No gallstones or biliary sludge. Gallbladder wall thickness is normal. No pericholecystic fluid. Extrahepatic bile duct is nondilated at 3 mm. Liver is normal in overall size. Trace free abdo ruth fluid is again noted, secondary to peritoneal dialysis. IMPRESSION: No sonographic evidence for gallstones or acute cholecystitis. Dictated by: Daniel Matias M.D. on 01/15/2017 at 20:20 Approved by: Daniel Matias M.D. on 01/15/2017 at 20:23
[2017-01-15] MEDS: 0.9% Sodium Chloride 1,000 ML IV SCH (20:40)
[2017-01-15 20:50] VITALS: BP 205/98; PULSE 72; RESP 16; O2SAT 100
[2017-01-15] MEDS ORDERED: Labetalol 5 mg/mL 20 mL Inj IVPUSH ONE (20:50)
[2017-01-15] MEDS ORDERED: HYDROmorphone 0.5 mg/0.5 mL iSecure Syringe IVPUSH ONE (21:20)
[2017-01-15] MEDS ORDERED: HYDROmorphone 0.5 mg/0.5 mL iSecure Syringe IVPUSH PRN (21:20)
[2017-01-15 21:24] LABS: INR 0.87 ratio
[2017-01-15] MEDS: Pantoprazole Inj 80 MG in 0.9% Sodium Chloride 80 ML IV SCH (22:01)
[2017-01-15] MEDS ORDERED: Dextrose 10% 250 ML IV ONE (22:05)
[2017-01-15 23:51] VITALS: BP 154/75; PULSE 65; RESP 16; O2SAT 99
[2017-01-16] VITALS (10 sets, daily range): BP systolic 107–176; BP diastolic 62–90; PULSE 63–73; RESP 14–18; O2SAT 96–100
[2017-01-16] MEDS: Pantoprazole Inj 80 MG in 0.9% Sodium Chloride 80 ML IV SCH ×2 (06:01→18:11)
[2017-01-16] MEDS: 0.9% Sodium Chloride 1,000 ML IV SCH ×3 (06:01→13:27)
--- NOTE | 2017-01-16 06:22 | NUR ---
Admit Note Pt. arrived to the floor via gurney with ED staff approx. 2029, Alert and oriented, transfer self to bed independently, steady gait, pt. seen by Dr. rey around 2100, call light in reach at all times, hourly checks, IV protonix running, will continue to monitor.
[2017-01-16 06:57] LABS: BASOPHILS % (AUTO) 1.3 % (0-3); EOSINOPHILS % (AUTO) 6.3 % (0-5); MONOCYTES % (AUTO) 8.1 % (4-12); Mean Corpuscular Hemoglobin 29.4 pg (27.0-35.0); Mean Corpuscular Volume 92.5 fL (81-100); NEUTROPHILS % (AUTO) 50.8 % (40-74); Platelet Count 237 bil/L (150-400)
[2017-01-16] MEDS: Sucralfate 100 mg/mL 10 mL Suspension PO SCH ×3 (08:14→18:11)
[2017-01-16] MEDS ORDERED: Glucose 40% Oral Gel 15 Gm Tube PO PRN (09:00)
[2017-01-16] MEDS ORDERED: Dextrose 10% 1,000 ML IV SCH (09:10)
[2017-01-16] MEDS ORDERED: Dextrose 5% 1,000 ML IV SCH (09:40)
--- NOTE | 2017-01-16 09:55 | CONS ---
[address] [address] CONSULTATION REPORT PATIENT: MADY LYNN : 1965 MR#: [id number] ADMIT: 01/15/2017 JOB ID: [id number] DATE OF SERVICE: 01/16/2017 REASON FOR CONSULTATION: Abdominal pain. HISTORY OF PRESENT ILLNESS: A 51-year-old female with history of end-stage renal disease on peritoneal dialysis since 2011, history of hypertension, diabetes type 2, status post Kimi-en-Y gastric bypass presents for consultation for epigastric pain. The patient states that she has had epigastric pain since Tuesday morning, 02/15, sharp, bandlike, stabbing, crampy, radiating at that point in time. The patient was given a GI cocktail in the ED which helped decrease her pain. The patient also had some intractable nausea and vomiting. The patient states that after her pain started she took Aleve at that point in time. The patient denies a history of NSAID use or alcohol prior to her pain. The patient never had an EGD or colonoscopy per the patient and denies family history of colon cancer, inflammatory bowel disease, or celiac disease. In the past, the patient did have an EGD done in 2012 which showed a small erosion in the duodenum as well as esophagitis. The patient presents for further evaluation. PAST MEDICAL HISTORY: As stated above including a stroke in 2009, history of peritonitis in 2013, hypertension, diabetes, carotid artery stenosis, and chronic kidney disease stage 4. PAST SURGICAL HISTORY: Fistula x2, throat abscess, gastric bypass 2012, tubal ligation. ALLERGIES: Denies. HOME MEDICATIONS: 1. Aspirin. 2. Calcium. 3. Losartan. 4. Zofran. 5. . 6. Gabapentin as needed. 7. Ropinirole as needed. 8. Vicodin. SOCIAL HISTORY: She does drink a half glass of wine on special occasions. No IV drug use. Former smoker. FAMILY HISTORY: Negative for colon cancer, IBD, or celiac disease. REVIEW OF SYSTEMS: Patient denies headache, blurred vision. Positive for nausea, vomiting. No chest pain, short of breath. Positive for abdominal pain. No skin rash or joint pain. PHYSICAL EXAMINATION: Vital signs upon presentation: Temperature is 36.6, pulse 67, blood pressure 163/76, respiratory 16, satting 100% room air. General no acute distress. Head no scars. Eyes anicteric. Throat supple. Lungs clear to auscultation bilaterally. Cardiovascular regular rhythm and rate. Abdomen soft, nondistended. Positive for epigastric pain upon palpation. Extremities no cyanosis, clubbing, or edema. LABORATORIES: White count 5.2, hemoglobin 10.6, hematocrit 33, platelet count 237. Sodium 141, potassium 4.3, chloride 109, bicarb 16, BUN 40. Creatinine 6.12. Glucose 70, lactic acid 1.29. Magnesium 2.4. Calcium 7.4. Total bili ALT 12, alk phos 47. Total protein 4.3, albumin 2.3. Lipase 61. PT 9.3. INR 0.87. PTT 25. CT KUB performed on January 15, 2017, showed an absence of contrast. No explanation of findings for abdominal pain. Trace abdominal pelvic fluid with peritoneal dialysis catheter in place. There is extensive small vessel atherosclerosis that was seen in the in the abdominal aorta. Abdominal ultrasound also performed during the day which showed no gallstones, common bile duct was 3 mm in diameter otherwise normal. ASSESSMENT AND PLAN: A 51-year-old, female with a history of end-stage renal disease, on peritoneal dialysis 2011, diabetes type 2, hypertension status post gastric bypass in 2012, tubal ligation, throat abscess, carotid artery stenosis, chronic kidney disease stage 4 presents here for epigastric pain. The differential diagnosis includes anastomotic ulcer versus uncontrolled gastroesophageal reflux disease versus esophagitis versus duodenitis. RECOMMENDATIONS: 1. Protonix 40 mg by mouth twice a day. 2. Carafate 1 g by mouth four times a day. 3. GERD diet. 4. EGD to be performed today.
[2017-01-16 10:31] LABS: BFWBC 69 /mm3; MONOCYTES,BODY FLUID 31 %; OTHER CELLS,BODY FLUID 0
[2017-01-16] MEDS ORDERED: Dextrose 10% 500 ML IV SCH ×2 (12:35→12:52)
[2017-01-16] MEDS: HYDROmorphone 0.5 mg/0.5 mL iSecure Syringe IVPUSH PRN ×4 (12:58→22:26)
[2017-01-16] MEDS ORDERED: Lactated Ringer's 1,000 ML IV SCH (13:00)
[2017-01-16] MEDS ORDERED: MetoCLOpramide 5 mg/mL 2 mL Inj IVPUSH PRN (13:00)
--- NOTE | 2017-01-16 13:19 | PCM.HPANE ---
Patient Data Surgeon Admitting Provider:Kobe Vieira MD Attending Provider:Jyoti Hubbard DO Primary Care Physician:Karina Tong DO Other Provider: Reason for Visit Abdominal Pain Ht/WT & BMI Height (Feet): 5 Height (Inches): 3.00 Weight (Kilograms): 58.640 Body Mass Index 22.91 Allergies Coded Allergies: niacin (Verified Allergy, Unknown, UNKNOWN, 09/24/16) Past Anesthesia History Anesthesia History: Denies:: Abnormal Airway, Anesthesia Reactions, Difficult Intubation, Fam Anesthesia Reaction, Fam Malignant Hypertherm, Malignant Hyperthermia Diabetes History Hx Diabetes?: Yes (neuropathy) Type of Diabetes: Type II Glycemic Control: Insulin Dependent Current Bedside Blood Glucose: 63 MRSA MRSA: No Medications Blood Thinner: Aspirin Reported Medications Gabapentin 300 Mg [id number] Mg PO HS PRN For Pain #30 01/15/17 Ropinirole 1 Mg Tablet1 Mg PO HS PRN For Pain #60 01/15/17 oxyCODONE-Acetaminophen 5-325 mg 1 Each Tablet1-2 Tablet PO every 4-6hrs PRN For Pain #120 01/15/17 Venlafaxine 25 Mg Zovuks03 Mg PO HS #30 01/15/17 Ondansetron 4 Mg Tablet4 Mg PO TID #100 01/15/17 Calcium Acetate 667 Mg Capsule6 Capsule PO TID #180 01/15/17 Aspirin Chew 81 Mg Chew81 Mg PO DAILY Ref 0 01/15/17 Losartan Potassium 50 Mg Mbmzps75 Mg PO BID #60 01/15/17 Discontinued Reported Medications [sodium bicarbonate] No Conflict Check1,300 Mg PO BID 01/31/12 Furosemide-Expunged Drug, Do Not Renew! (Lasix-Expunged Drug, Do Not Renew!)20 Mg Pmrukr07 Mg PO TID 01/26/11 Carvedilol-Expunged Drug, Do Not Renew! 12.5 Mg Hkgvhk32 Mg PO BID 01/26/11 AmLODIPine-Expunged Drug, Do Not Renew! 10 Mg Ycvcvf09 Mg PO DAILY 01/26/11 Losartan/HCTZ-Expunged Drug, Do Not Renew! (Losartan/HCTZ 50/12.5-Expunged, Do Not Renew!)1 Each Tablet1 Each PO BID 01/26/11 Citalopram-Expunged Drug, Do Not Renew! 10 Mg Rtipoj36 Mg PO DAILY 01/26/11 Ferrous Sulfate-Expunged Drug, Do Not Renew! (Feosol-Expunged Drug, Do Not Renew !)325 Mg Cjtmta395 Mg PO TID 05/03/10 INSULIN GLARGINE-Expunged Drug, Do Not Renew! (Lantus-Expunged Drug, Do Not Renew!)100 Unit/1 Ml Seuu403 U Sq Hs 05/03/10 Aspirin-Expunged Drug, Do Not Renew! 325 Mg Titcco750 Mg PO DAILY 05/03/10 Insulin Lispro-Expunged Drug, Do Not Renew! (Humalog-Expunged Drug, Do Not Renew !)100 U/Ml Duyo76-82 U SQ 10 mins before meals 05/03/10 History History of ENT Problems?: Yes HEENT History: Positive for:: Glaucoma Denies:: Abnormal Airway Cataracts Difficult Intubation Dysphagia Hearing Problem Sinus Problem Denture Type: None Teeth Condition: Within Normal Limits Hx of Heart Problems?: Yes Cardiovascular History: Positive for:: Edema (PEDAL) Hypertension Denies:: AICD Atrial Fibrillation Cardiac Surgery Chest Pain Congestive Heart Failure Heart Murmur Irregular Heartbeat Pacemaker Thrombophlebitis Valvular Heart Disease Hx of Respiratory Problem?: No Respiratory History: Denies:: Asthma COPD Chest Surgery Cough Dyspnea Emphysema Hemoptysis Pneumonia Tuberculosis Use of C-PAP Machine Hx Neurologic Problems?: Yes Neurological History: Positive for:: CVA (04/2010 NO RESIDUAL FROM STROKE. ) Headaches (REMOTE HX) Denies:: Alzheimer's Disease Dementia Dizziness Parkinson's Disease Seizures Hx of GI Problems?: Yes Other GI Pertinent History: gastric bypass 2014 Hx of Problems?: Yes Genitourinary History: Denies:: Kidney Stones Urinary Tract Infection HX of Peritoneal Dialysis: Yes (NIGHTLY S/P A/V FISTULA-THROMBOSED NEEDS NEW FISTULA=CURRENT PROBLEM) Female Hx: Denies:: Currently Endometriosis Pelvic Inflammatory Problems with Breasts? Skin History: Denies:: History Skin Disorders? Pressure Ulcers Hx Musculoskeletal Problems?: No Musculoskeletal History: Positive for:: Back Injury (slipped disc) Denies:: Joint Replacement Musculoskeletal Trauma Hx of Psycho/Social Problems?: Yes Psycho Social History: Positive for:: Anxiety Hx Depression Denies:: Bipolar Disorder Suicide Attempt Hx Surgeries?: Yes (fistula placement x 2, peritoneal dialysis catheter placement, tubal) Hx Any Other Health Problems?: Yes Other History: Positive for:: Cancer (Cervical 1989) Hospitalization (gastric bypass, stroke) Denies:: Endocrine Disease Thyroid Disease History Blood Transfusions: Positive for:: Accept Blood Products? Blood Transfusions Denies:: Blood Transfuse Reaction Hx Diabetes: Yes (neuropathy)Bedside Blood Glucose: 63 Hx Alcohol Use: Yes (0.5 glass wine on special occasions)Hx Substance Use: No Smoking Status: Former Smoker Have You Smoked inLast 12 mo: No Stop/Bang Treated for Sleep Apnea?: No Do You Have a CPAP Machine?: No S-Snoring: Do You Snore Loudly: No T-Tired: feel tired, fatigued: No O-Obsered: Observed not breath: No P-Blood Pressure: treated: Yes B- Body Mass Index > 35 kg/m2: No A- Age over 50: No N- Neck Large Circumference: No G- Gender Male: No VASQUEZ Total Score: 1 Risk Assessment Category Category 1A: Patient has history of documented sleep apnea, and HAS NOT received any narcotic, sedative or anesthesia administration during this stay. Category 1B: Patient has history of documented sleep apnea, and HAS received any narcotic , sedative or anesthesia administration during this stay Category 2: Patient has SUSPECTED Obstructive Sleep Apnea, and HAS received any narcotic , sedative or anesthesia administration during this stay. Category 3: Patient has SUSPECTED Obstructive Sleep Apnea and HAS NOT received narcotic, sedative or anesthesia administration during this stay. Category 4: Outpatient in Procedural Areas with known sleep apnea or who screen positive for High Risk via the STOP/BANG questionnaire. Exam Exam Vital Signs Vital Signs Date Time Temp Pulse Resp B/P Pulse Ox O2 Delivery O2 Flow Rate FiO2 01/16/17 12:05 73 01/16/17 08:00 67 01/16/17 08:00 36.7 63 16 156/79 100 Room Air 01/16/17 05:52 71 General Appearance: Alert, Oriented X3 HEENT/AIRWAY: MP 2, Neck Movement (FROM) Lungs: Clear to Auscultation, Clear to Percussion Heart: Exam Unremarkable, Regular Rate/Rhythm Meds/Labs/Diagnostics Admission Meds Current Medications Sodium Chloride (Normal Saline) 1,000 ml @ 0 mls/hr Q0M ONCE IV Last administered on 01/15/17t 16:27; Start 01/15/17 at 16:05; Stop 01/15/17 at 16:07; Status DC Pantoprazole (Protonix Inj) 40 mg ONCE ONCE IVPUSH Last administered on 16:27; Start 01/15/17 at 16:05; Stop 01/15/17 at 16:08; Status DC Ondansetron HCl (Zofran Inj) 4 mg ONCE ONCE IVPUSH Last administered on 16:27; Start 01/15/17 at 16:05; Stop 01/15/17 at 16:08; Status DC Sucralfate 1000 mg 1,000 mg TIDAC PO Last administered on 01/16/17 08:14; Start 01/15/17 at 17:48 Sodium Chloride (Normal Saline) 1,000 ml @ 100 mls/hr Q10H IV Last administered on 01/16/17 08:33; Start 01/15/17 at 19:33; Stop 01/16/17 at 09:08 ; Status DC Miscellaneous 10 ml 10 ml ONCE ONCE PO Last administered on 01/15/17 20:41; Start 01/15/17 at 19:35; Stop 01/15/17 at 19:56; Status DC Pantoprazole/ Sodium Chloride (Protonix Inj/ Normal Saline) 100 ml @ 10 mls/hr Q10H IV Last administered on 01/16/17 06:01; Start 01/15/17 at 19:35 Pantoprazole (Protonix Inj) 40 mg ONCE ONCE IVPUSH Last administered on 22:00; Start 01/15/17 at 20:35; Stop 01/15/17 at 20:36; Status DC Labetalol HCl (Trandate Inj) 20 mg ONCE ONCE IVPUSH Last administered on 22:00; Start 01/15/17 at 20:50; Stop 01/15/17 at 20:57; Status DC Hydromorphone HCl 0.5 mg 0.5 mg ONCE ONCE IVPUSH Last administered on 22:00; Start 01/15/17 at 21:20; Stop 01/15/17 at 21:21; Status DC Dextrose/Water (D10w) 250 ml @ 750 mls/hr Q20M ONCE IV Last administered on 22:29; Start 01/15/17 at 22:05; Stop 01/16/17 at 12:35; Status DC Losartan Potassium (Cozaar) 50 mg BID PO Last administered on 01/16/17 08:14; Start 01/16/17 at 08:30 Bedside Blood Glucose: 63 Labs Test 01/15/17 15:56 01/15/17 16:35 01/15/17 20:40 01/16/17 06:19 Lactic Acid Level 1.2mmol/L (0.4-2.0) Magnesium Level 2.4mg/dL (1.6-2.6) Hold Vazquez Top Tube Received (Received) Hold Urine Received (Received) Prothrombin Time 9.3sec (8.1-12.5) Prothromb Time International Ratio 0.87ratio Activated Partial Thromboplast Time 25.0sec (22.8-33.0) White Blood Count 5.2th/mm3 (3.8-10.1) Red Blood Count 3.61mil/mm3 (3.90-5.20) Hemoglobin 10.6g/dL (12.0-15.6) Hematocrit 33.4% (35.0-46.0) Mean Corpuscular Volume 92.5fL (81-100) Mean Corpuscular Hemoglobin 29.4pg (27.0-35.0) Mean Corpuscular Hemoglobin Concent 31.7% (32.0-37.0) Red Cell Distribution Width 13.1% (12.3-15.4) Platelet Count 237bil/L (150-400) Neutrophils (%) (Auto) 50.8% (40-74) Lymphocytes (%) (Auto) 33.5% (14-46) Monocytes (%) (Auto) 8.1% (4-12) Eosinophils (%) (Auto) 6.3% (0-5) Basophils (%) (Auto) 1.3% (0-3) Sodium Level 141mEq/L (134-144) Potassium Level 4.3mEq/L (3.5-5.2) Chloride Level 109mEq/L (97-108) Carbon Dioxide Level 16mmol/L (18-29) Blood Urea Nitrogen 40mg/dL (6-24) Creatinine 6.12mg/dL (0.57-1.00) Estimat Glomerular Filtration Rate 10mL/min (>59) Glucose Level 70mg/dL (60-99) Calcium Level 7.4mg/dL (8.5-10.1) Total Bilirubin 0.2mg/dL (0.0-1.2) Aspartate Amino Transf (AST/SGOT) 10U/L (0-50) Alanine Aminotransferase (ALT/SGPT) 12U/L (0-32) Alkaline Phosphatase 47U/L (25-150) Total Protein 4.3g/dL (6.4-8.4) Albumin 2.3g/dL (3.4-5.0) Lipase 35U/L (13-60) Test 01/16/17 08:45 Body Fluid Source Peritoneal fluid Body Fluid Color Straw (Clear) Body Fluid Appearance Turbid Body Fluid WBC 69/mm3 Body Fluid RBC 77/mm3 Body Fluid Polynuclear WBCs 30% Body Fluid Lymphocytes 37% Body Fluid Monocytes 31% Body Fluid Eosinophils 2% Body Fluid Basophils 0% Plan Impression Patient chart reviewed, patient interviewed and anesthestic plan with risks, benefits, and alternatives discussed, and informed consent obtained. ASA Physical Status: ASA3 Severe Disease (ESRD) Bene/Risks/Altern/Consents: Yes HP Complete Prior to Induction: Yes Alejandro Fisher MD Jan 16, 2017 13:01
--- NOTE | 2017-01-16 13:46 | CONS ---
[address] [address] CONSULTATION REPORT PATIENT: MADY LYNN : 1965 MR#: [id number] ADMIT: 01/15/2017 JOB ID: [id number] DATE OF SERVICE: 01/16/2017 REQUESTING PHYSICIAN: Jyoti Hubbard MD. REASON FOR CONSULTATION: Management of peritoneal dialysis. CHIEF COMPLAINT: Epigastric pain. PRESENT ILLNESS: This is a 51-year-old, lady, with significant past medical history of end-stage renal disease, on peritoneal dialysis, type 2 diabetes, obesity, status post gastric bypass, hypertension, presented to the emergency room with a complaint of epigastric pain. The patient reported that she has had persistent nausea and vomiting. She was evaluated by Dr. Hamilton last month. The plan was to do upper endoscopy on January 20. However, the patient came to the hospital this time complaining of epigastric pain started two days prior to the admission. The pain was intermittent, severe, bandlike in nature, and nonradiating. Symptoms were associated with nausea and vomiting. She was not able to tolerate oral intake. The patient therefore came to the hospital for further investigation. The initial vitals reported temperature of 36.4, pulse of 82, blood pressure of 170/96. The patient was found to have low blood sugar, so she received D50 IV push. During my visit, the pain is controlled. She is n.p.o. for upper endoscopy. She received IV Protonix drip overnight as well as normal saline which has been discontinued. She is the patient of Dr. Beach. She has been on peritoneal dialysis since 2011. She had an episode of peritonitis three years ago. Her current peritoneal dialysis order includes 2.5% dextrose, 6 L, 9.5 hours, four cycles, last fill 200 cc. Peritoneal fluid was sent this morning, revealed a white blood cell of 69, PMN of 30%. The patient reports no fever, no chills. No chest pain. No shortness of breath. No diarrhea. No cough, no hemoptysis. No skin rash. No redness at the exit site. PAST MEDICAL HISTORY: 1. End-stage renal disease, on peritoneal dialysis since 2011. 2. The patient had history of peritonitis three years ago. 3. Anemia of chronic kidney disease. 4. Hypertension with hypertensive nephrosclerosis. 5. 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 6. Carotid artery disease. 7. Obesity, status post gastric bypass in 2013. PAST SURGICAL HISTORY: 1. Status post AV fistula creation. 2. Peritoneal dialysis catheter placement. 3. I and D of throat abscess. 4. Tubal ligation. 5. Gastric bypass in 2013. FAMILY HISTORY: Mother positive for cervical cancer and congenital heart disease. SOCIAL HISTORY: Denies current use of alcohol, tobacco, or illicit drugs. ALLERGIES: NIACIN. REVIEW OF SYSTEMS: Fourteen-point review of system was performed. PHYSICAL EXAMINATION: Vitals: Temperature 36.7, respiratory 16, blood pressure 156/79, pulse 73, O2 sat 100% on room air. General appearance: Awake, alert, oriented x3. Not in acute distress. HEENT: Mild pallor, no jaundice. No JVD. No lymphadenopathy. No thyroid enlargement. Heart: Regular rhythm. Normal S1, S2. Soft systolic murmur noted. No rubs, no gallops. Lungs: Clear to auscultation bilaterally. No wheezing. No rhonchi. Abdomen: Soft, active bowel sounds. Mild tenderness on the epigastric area. Nondistended. No hepatosplenomegaly. Peritoneal dialysis catheter on the right lower quadrant which is dry, clean, and intact. Extremities: No edema, cyanosis, or clubbing of fingers. LABORATORY: WBC 5.2, hemoglobin 10.6. Sodium 141, potassium 4.3, chloride 109, bicarb 16. BUN 40, creatinine 6.12. Calcium 7.4, magnesium 2.4. INR 0.87. Peritoneal fluid 69 WBC, 30% PMN. ASSESSMENT: 1. Persistent nausea and vomiting. 2. Epigastric pain. 3. End-stage renal disease, on peritoneal dialysis. 4. Hypoglycemia. 5. History of obesity, status post gastric bypass in 2013. 6. History of type 2 diabetes, not requiring any hypoglycemic agents. 7. Hypertension with hypertensive nephrosclerosis. 8. Renal osteodystrophy. 9. Anemia of chronic kidney disease. PLAN: 1. Since patient is n.p.o., I recommend to start D10 run at 40 cc/hour. Will try to avoid giving too much volume in a dialysis patient. 2. We will resume peritoneal dialysis tonight. We will continue her current peritoneal dialysis prescription including 9.5 hours, four cycles, 2.5% dextrose, 6 L, last fill 200 cc. 3. Will repeat peritoneal fluid analysis since the last one was collected incorrectly. We need to place peritoneal dialysate at least 1 hour prior to collecting it. 4. Continue her antihypertensive medications. 5. Follow GI recommendation. Thank you for allowing me to participate in the care of your patient. We will monitor along with you. TASHAD
--- NOTE | 2017-01-16 13:46 | PCM.ANEP1 ---
Post Anesthesia PACU Phase 1 Assessment Vital Signs Vital Signs Date Time Temp Pulse Resp B/P Pulse Ox O2 Delivery O2 Flow Rate FiO2 01/16/17 13:18 36.8 70 14 157/87 99 Room Air 01/16/17 12:05 73 01/16/17 08:00 67 01/16/17 08:00 36.7 63 16 156/79 100 Room Air 01/16/17 05:52 71 Anesthetic Administered: MAC Level of Alertness: Sleepy, easy to arouse MUSA's with Equal Strength: Yes Pain: Yes Pain Scale Score: 5 Nausea or Vomiting: No CV Function & Hydration Stable: Yes Airway Device: Oxygen Delivery: Room Air Lungs: Clear to Auscultation, Clear to Percussion PACU Phase 2 Assessment Complications: No Follow up Care: No Patient Instructions Provided: N/A Comments See anesth record for PACU VS> PACU VSS Alejandro Fisher MD Jan 16, 2017 13:46
[2017-01-16] MEDS: Ondansetron 2 mg/mL 2 mL Inj IVPUSH PRN ×3 (14:05→22:27)
--- NOTE | 2017-01-16 14:13 | ENDO ---
[address] [address] ENDOSCOPY PROCEDURE PATIENT: MADY LYNN : 1965 MR#: [id number] ADMIT: 01/15/2017 JOB ID: [id number] DATE OF SERVICE: 01/16/2017 TYPE OF OPERATION: Esophagogastroduodenoscopy, biopsy. PREOPERATIVE DIAGNOSIS(ES): Epigastric pain. POSTOPERATIVE DIAGNOSIS(ES): Status post Kimi-en-Y gastric bypass. Otherwise normal. ANESTHESIA: Monitored anesthesia care. COMPLICATIONS: None. BLOOD LOSS: Minimal. DESCRIPTION OF PROCEDURE: After risks and benefits were explained to the patient, informed consent was obtained. After anesthesia administered, upper endoscope was then inserted in mouth, intubated into the esophagus, stomach, second portion of duodenum. Mucosa carefully examined. After procedure was done, the scope withdrawn, procedure terminated. FINDINGS: Upon entering the esophagus, esophagus was normal without masses, ulcers, lesions. Z-line located at 40 cm from incisors. Upon entering the stomach, there was no evidence of any anastomotic ulcers at the gastrojejunal anastomosis. The gastric pouch also looked normal. The scope was advanced to the long limb, past the gastrojejunal anastomosis into the jejunum without any evidence of ulcers or bleeding. Biopsies were taken in the gastric pouch. IMPRESSIONS: 1. Status post Kimi-en-Y gastric bypass. Otherwise normal. 2. Status post biopsy of the gastric pouch. RECOMMENDATION: Await pathology results. GI recommendations per inpatient GI consultation team.
--- NOTE | 2017-01-16 14:59 | NUR ---
Shift Note: Patient NPO for EGD procedure this morning. Procedure took place in the 1300 hour and patient tolerated well. Abdominal pain continues, helped with Dilaudid IV. Had a bout of tearfulness/anxiety prior to procedure, stating that she "just wants to leave". Conversation and soothing with patient regarding fears and worries. Continuing to closely monitor her blood sugars as they run low 60's. She did receive two 25mL doses of D50 for low CBG's. D10 gtts at 40mL/hr initiated after her return from her procedure.
[2017-01-16] MEDS: Polyethylene Glycol (PEG) 17 Gm Powder PO PRN (16:10)
--- NOTE | 2017-01-16 17:21 | NUR ---
Social Work: Initial Assessment/Readiness for D/C D: EMR reviewed. Please see Initial Assessment linked to this note for more information. Pt is a 51 year old female admitted [place] for abdominal pain per H&P. Pt's insurance is Medicare and [facility]. PCP is Deep Jerry MD. Pt discussed in multidisciplinary rounds, pt completes peritoneal dialysis at home. SW met with pt and Rakesh (they are ) at bedside to conduct initial assessment. Pt was alert and oriented x3. SW explained role and wrote phone number on white board. SW provided [facility] Discharge Planning Checklist and encouraged pt to contact SW for any discharge planning questions. Designated d/c planning contact center specialist is Rakesh [phone]. Pt lives at home with her sister in [place]. Pt is independent with all ADLs at baseline. Pt completes her own peritoneal dialysis at home 7 days a week. Pt uses no DME at baseline, Pt drives. Pt has no HH or SNF history. Pt has no LTC or VA benefits. Pt has no DPOA on file, SW requested copy of pt's DPOA. Pt agreeable. Pt is likely to d/c home with to transport via POV. SW will continue to follow. A: Pt who is independent at baseline and has the capacity for self-care. P: Pt anticipated to discharge home with to transport via POV. No SW needs identified, no MD orders received at this time. SW will continue to follow for needs until time of discharge. KORI Kruger Addendum: 01/16/17 at 1722 by CHRE SAEZ Amended: Links added.
--- NOTE | 2017-01-16 18:12 | NUR ---
peritoneal dialysis note pd exit site was cleaned and dressing changed initial drain was cloudy, will collect pd fluid sample on drain 1 of md notified Addendum: 01/17/17 at 0912 by VÍCTOR FLETCHER RN pt disconnect at 0800 no complaints of pain, no alarms throughout night pd fluid appears cloudy dressing CDI at PD exit site pt tolerated treatment well
--- NOTE | 2017-01-16 19:56 | PCM.PNMED ---
Subjective Date of Service Jan 16, 2017 Subjective Pt is seen and examined. She says she usually feels cold and that is her baseline. She has been nauseated for some time but last night her abdominal pain and nausea worsened. She runs the PD dialysate every night for 9.5 hrs, 4 cycles. Has been doing this for 5 yrs. EndorsingDiffuse abd pain, mainly in the top two quadrants. Exam Vital Signs Vital Sign - Last Date Time Temp Pulse Resp B/P Pulse Ox O2 Delivery O2 Flow Rate FiO2 01/16/17 05:52 71 01/16/17 04:49 36.6 16 163/76 100 Room Air Intake and Output 01/15/17 01/15/17 01/16/17 Cumulative From/Thru 15:00 23:00 07:00 01/15/17 15:13 - 01/16/17 05:10 Intake Total 1000 ml 1088 ml 2088 ml Balance 1000 ml 1088 ml 2088 ml Intake IV Total 1000 ml 1088 ml 2088 ml # Voids 2 2 Exam General: NAD HEENT: NCAT Heart: RRR, no S4 mumurs Lungs: CTA no crackles or wheezes Abd: Soft, no rashes, normal bowel sounds, tender in RUQ, RLQ. PD cath on RLQ ExT: No edema Psych: No anxiety Neuro: AOA X 3, no focal deficits Skin: Abdominal peritoneal catheter site appears clean and dry IVs and Medications IV Fluids Stopped NSS 100 cc/hr, D5W 50 cc/hr Medications Reviewed: Medications were reviewed in detail Lab and Diagnostics Result Diagram: 01/16/17 0619 01/15/17 1556 X-Rays, CTs and MRIs Date of Service: 01/15/17 PROCEDURE: CT KUB INDICATIONS: 51 year-old female with end-stage renal disease and prior gastric bypass surgery, now with epigastric and periumbilical abdominal pain. IMPRESSION: 1. In the absence of contrast, no acute findings to explain epigastric and periumbilical abdominal pain. 2. Trace free abdominal and pelvic fluid, expected with peritoneal dialysis catheter. Dictated by: Daniel Matias M.D. on 01/15/2017 at 16:46 Approved by: Daniel Matias M.D. on 01/15/2017 at 16:54 PROCEDURE: US ABDOMEN, LIMITED ([id number]) INDICATIONS: 51 year-old female with right upper quadrant abdominal pain. Assess for gallstones. IMPRESSION: No sonographic evidence for gallstones or acute cholecystitis. Dictated by: Daniel Matias M.D. on 01/15/2017 at 20:20 Approved by: Daniel Matias M.D. on 01/15/2017 at 20:23 Assessment & Plan This is a pleasant 51-year-old female history of end-stage renal disease on daily peritoneal dialysis, hypertension, diabetes, history of CVA gastric bypass in 2012 with a prior history of peritonitis from peritoneal dialysis catheter who presented to the ED with acute onset intermittent bandlike upper abdominal and epigastric pain. Associated with pink blood-tinged vomitus. Patient was admitted for possible GI bleed and acute bacterial peritonitis. # Acute abdominal pain, POA - Perforated viscus is difficult to rule out given history of abdominal peritoneal dialysis. - Admission Vital signs: Showed temperature 36.5, pulse 69, respiratory rate 18 , BP 185/94 map 124, O2 99% on room air. - She was seen by Dr. Hamilton in December of this year who planned on doing EGD at that time, secondary to intractable nausea and vomiting. - Suspected acute GI bleed secondary to history of ulcers and NSAID use. GI was consulted. EGD was done on 9 AM no evidence of ulcers, d/c protonix drip. Famotidine 10 mg PO BID. - Admission Hemogram showed: CBC is 5.1, PMNs 61.9% without evidence of bands, H /H was 11.5/35.6, platelets were normal at 275, patient did have elevated eosinophils 5.7 - CT KUB showed: In the absence of contrast, no acute findings to explain epigastric and periumbilical abdominal pain. Trace free abdominal and pelvic fluid, expected with peritoneal dialysis catheter. - Abdominal ultrasound to rule out biliary etiologies: No cholecystitis --No Pd fluid sample was sent form ED per micro lab, resent it this am. Dr. Baker from nephrology was contacted in the AM. has seen the patient: She reordered the PD fluid cx as she feels it is collected incorrectly. We appreciate her Coumadin recommendations # End stage renal disease on peritoneal dialysis daily, POA - Patient gets daily peritoneal dialysis since 2011, with PD catheter placed in the right lower quadrant. She has functional left upper extremity fistula although this is not utilized. - Patient reports 2 days of taking NSAID Aleve for her abdominal pain. - High suspicion for acute bacterial peritonitis despite normal white blood cell count remains. Peritoneal dialysis fluid was sent for cell count, differential, Gram stain and culture per nephrology recommendation. - At the time of her admission Nephrology Dr. Powers to be notified by phone of the results prior to starting antibiotics. - Patient's baseline creatinine is 6.7 in December 2016, currently creatinine of 6.5. - Admission Chemistry panel for: A BUN of 37, creatinine 6.30 in a patient with a baseline creatinine of 6.7 back in December. Lactic acid was 1.2, calcium was low at 7.8 - KUB CT showed no peritoneal fluid, the abdomen was not tapped. --Contacted Nephro as pt did not have PD yesterday --Q2H BG checks, stop D10W once she starts eating -- Nephro says ok to do PD tonight is K is ok 4.6 this am # Acute Hypocalcemia, POA - Likely secondary to chronic kidney disease - Total protein 5.6, albumin 2.6 # Acute Mildly elevated lipase, POA - Lipase 61 - Repeat lipase is oirdered # Hypoglycemia, POA - History of Diabetes mellitus, previously on insulin. She states since she had her gastric bypass she is not required insulin or diabetic medications and has problems with hypoglycemia - Fingerstick glucose on admit 70 - D50 once with Finger stick glucose in 2 hours -- Diabetic hypoglycemia protocol is initiated Chronic problems #Hx severe anemia - Likely secondary to end-stage renal disease # Hx of CVA - On aspirin 81 mg at home - We will hold aspirin for now, and restart as soon as GI bleed ruled out # Hx peritonitis - 2013 --- No Pd fluid sample was sent form ED per micro lab, will be sent in the a.m. per Dr. baker's instructions # Hypertension chronic presumed stable - Patient on losartan 50 mg at home daily - We will continue losartan - She reports she took 2 on day of admission for blood pressures to 298/190, - Gave labetalol 20 mg IV once for blood pressure 205 systolic - We will continue to monitor blood pressures # Diabetes mellitus presumed stable - Not currently on insulin ordered antidiabetic medication - Now she has a problem with hypoglycemia - Fingerstick glucose on admit 70 - D50 once with Finger stick glucose in 2 hours - bg 69 9/10 am, changed fluids to D5 50 cc/hr as she has already descended the diabetes protocol # Chronic pain presumed stable - On Percocet 09/08/2024 at home every 4 hours, will hold by mouth meds for expected upper endoscopy in the morning High risk Meds: IV dilaudid Disposition: Upon further review, patient is admitted for observation stay due to presenting condition and complications CODE STATUS: Full code PCP: Dr. Ashley Wetzel Senior Business Objects Developer: Dr. Hanson Urologist Dr. Solis DVT PE prophylaxis: SCD's Contact: Willis Daendre [phone] Pain Evaluation: Adequate Pain Control VTE Prophylaxis: SCDs Resuscitation Status: CPR: Attempt Resuscitation Time spent 25 min Jyoti Hubbard DO Jan 16, 2017 07:59
--- NOTE | 2017-01-16 20:48 | NUR ---
[place] explained and signed. Copy of [place] and Medicare self administered medication information given to pt.
[2017-01-16 21:00] LABS: BFWBC 4 /mm3
[2017-01-17] VITALS (8 sets, daily range): BP systolic 120–190; BP diastolic 61–100; PULSE 69–74; RESP 16–19; O2SAT 96–99
[2017-01-17] MEDS ORDERED: Nitroglycerin 2% 1 Gm Ointment TOPICAL ONE (01:50)
--- NOTE | 2017-01-17 02:30 | NUR ---
HTN Around 0145, BP elevated at 190/100. Recheck was 215/100. Pt asymptomatic. Paged Dr. Vieira, ordered Nitro paste. Placed on pt, will recheck.
--- NOTE | 2017-01-17 04:38 | NUR ---
VOMITING/MEDICATIONS Pt reports significant nausea 01/16/17 evening. Pt ate most of 01/16/17 dinner, no nausea immediately following dinner. Later, pt reported nausea, zofran given per charge account identification clerk. Pt reported no symptom relief, started dry heaving after medication administration, and had little emesis out consisted of saliva including pepcid and effexor. Pt reported she had not vomited previously to this, usually has nausea at home, then goes away. Another dose of zofran given later with dilaudid for ab pain. Pt continued to dry heave/vomit for approx. 1 hr after. Pt then appeared to be sleeping. Upon recheck of BP later in night, pt reported nausea stopped. Gave pain medications orally, no nausea reported. Hourly rounding.
--- NOTE | 2017-01-17 04:44 | NUR ---
IV IV protonix discontinued per orders, pt converted to SL. IV asymptomatic, flushes easily, no pain upon flushing. At approx. 2230 dose of dilaudid, pt c/o slight pain upon initial flushing, but no dicomfort thereafter. IV asymptomatic otherwise. At approx. 0130 dose of dilaudid, pt c/o IV site pain with any flushing. IV appeared puffy, but not infiltrated. Did not attempt to put dilaudid through IV. Told pt she can have new IV now and receive dilaudid, or wait until morning as pt did not have any IV medications, for new IV and take PO pain medications. Pt opted to take PO gabapentin and tylenol and wait for IV start. At rounds, pt appears to be sleeping comfortably. Hourly rounding continuing.
[2017-01-17] MEDS: Sucralfate 100 mg/mL 10 mL Suspension PO SCH ×3 (08:06→17:26)
[2017-01-17] MEDS: Ondansetron 2 mg/mL 2 mL Inj IVPUSH PRN ×2 (10:18→17:26)
[2017-01-17] MEDS: HYDROmorphone 0.5 mg/0.5 mL iSecure Syringe IVPUSH PRN ×4 (10:20→22:18)
--- NOTE | 2017-01-17 10:44 | PCM.PNNEPH ---
Subjective Date of Service Jan 17, 2017 Subjective s/p EGD revealed normal finding. (+) pain 7/10 and nausea. BP elevated. PD performed last night without complication. PD fluid WBC ~ 4. Exam Vital Signs Vital Sign - Last Date Time Temp Pulse Resp B/P Pulse Ox O2 Delivery O2 Flow Rate FiO2 01/17/17 08:54 72 01/17/17 07:23 36.7 18 158/75 98 Room Air Intake and Output 01/16/17 01/16/17 01/17/17 Cumulative From/Thru 15:00 23:00 07:00 01/15/17 15:13 - 01/16/17 18:40 Intake Total 100 ml 573 ml 2761 ml Output Total 1010.00 ml 1010.00 ml Balance 100 ml -437.00 ml 1751.00 ml Intake Oral 400 ml 400 ml IV Total 100 ml 173 ml 2361 ml Output Ultrafiltrate 1010.00 ml 1010.00 ml # Voids 2 Exam General appearance: Awake, alert, oriented x3. Not in acute distress. HEENT: Mild pallor, no jaundice. No JVD. No lymphadenopathy. No thyroid enlargement. Heart: Regular rhythm. Normal S1, S2. Soft systolic murmur noted. No rubs, no gallops. Lungs: Clear to auscultation bilaterally. No wheezing. No rhonchi. Abdomen: Soft, active bowel sounds. Mild tenderness on the epigastric area and upper abdomen. Nondistended. No hepatosplenomegaly. Peritoneal dialysis catheter on the right lower quadrant which is dry, clean, and intact. Extremities: No edema, cyanosis, or clubbing of fingers. Lab and Diagnostics Result Diagram: 01/17/17 0757 01/17/17 0757 X-Rays, CTs and MRIs Date of Service: 01/15/17 PROCEDURE: CT KUB INDICATIONS: 51 year-old female with end-stage renal disease and prior gastric bypass surgery, now with epigastric and periumbilical abdominal pain. IMPRESSION: 1. In the absence of contrast, no acute findings to explain epigastric and periumbilical abdominal pain. 2. Trace free abdominal and pelvic fluid, expected with peritoneal dialysis catheter. Dictated by: Daniel Matias M.D. on 01/15/2017 at 16:46 Approved by: Daniel Matias M.D. on 01/15/2017 at 16:54 PROCEDURE: US ABDOMEN, LIMITED ([id number]) INDICATIONS: 51 year-old female with right upper quadrant abdominal pain. Assess for gallstones. IMPRESSION: No sonographic evidence for gallstones or acute cholecystitis. Dictated by: Daniel Matias M.D. on 01/15/2017 at 20:20 Approved by: Daniel Matias M.D. on 01/15/2017 at 20:23 Plan Impression 1. Persistent nausea and vomiting and epigastric pain, probable gastroparesis vs chronic mesenteric ischemia. 2. End-stage renal disease, on peritoneal dialysis. 3. Hypoglycemia, resolved. 4. History of obesity, status post gastric bypass in 2012. 5. History of type 2 diabetes, not requiring any hypoglycemic agents. 6. Hypertension with hypertensive nephrosclerosis. 7. Renal osteodystrophy. 8. Anemia of chronic kidney disease. PLAN: 1. Add labetalol 100 mg BID, continue losartan and norvasc. 2. Continue PD tonight: 9.5 hr, 4 cycles, 2.5% dextrose 6L, last fill 20 ml. 3. Follow GI recommendation. 4. Check PO4 level. 5. Agree to proceed with CTA to rule out mesenteric ischemia. Darryl Maurice MD Jan 17, 2017 10:44
--- NOTE | 2017-01-17 11:11 | NUR ---
Social Work-readiness for discharge/multidisciplinary rounds: Data:EMR Reviewed. Pt is on day 2 of hospitalization for abdominal pain per H&P. Pt is not medically stable anticipate 1 more days. Pt resides at home and does her own peritoneal dialysis. Pt has been up independent in her room. No concerns noted around pt's capacity for self care from RN or MD.No anticipated discharge needs. SW will continue to follow if needs arise. Assessment:Pt who is independent at baseline. Plan:Pt to discharge home when medically stable via POV. No anticipated discharge needs. SW will continue to follow if needs arise. KORI Chen
--- NOTE | 2017-01-17 12:58 | PCM.PNSURG ---
Subjective Date of Service: Jan 17, 2017 Date of Service: Jan 17, 2017 Visit Information: Subjective: no acute events overnight. Patient is status post EGD from yesterday. Abdominal pain is much improved this morning. Patient eating breakfast this morning without difficulty Postop General: No Complaints Objective Vital Sign- Last 8 Hours Date Time Temp Pulse Resp B/P Pulse Ox O2 Delivery O2 Flow Rate FiO2 01/17/17 12:12 36.7 69 16 120/61 99 Room Air 01/17/17 08:54 72 01/17/17 07:23 36.7 74 18 158/75 98 Room Air Intake and Output- Last 8 Hour 01/17/17 Cumulative From/Thru 07:00 01/15/17 15:13 - 01/16/17 18:40 Intake Total 2761 ml Output Total 1010.00 ml Balance 1751.00 ml Intake Oral 400 ml IV Total 2361 ml Output Ultrafiltrate 1010.00 ml # Voids 2 General: Oriented X3 Neck: Supple Lungs: Clear to Auscultation Heart: Exam Unremarkable Abdomen: Benign, Soft, Appropriately tender, Non-distended, Normoactive bowel tones Extremities: Distal Pulses Palpable Result Diagram: 01/17/17 0757 01/17/17 0757 Assessment & Plan Impression A 51-year-old, female with a history of end-stage renal disease, on peritoneal dialysis 2011, diabetes type 2, hypertension status post gastric bypass in 2012, tubal ligation, throat abscess, carotid artery stenosis, chronic kidney disease stage 4 presents here for epigastric pain. The differential diagnosis includes anastomotic ulcer versus uncontrolled gastroesophageal reflux disease versus esophagitis versus duodenitis. s/p egd 01/16/17- IMPRESSIONS: 1. Status post Kimi-en-Y gastric bypass. Otherwise normal. 2. Status post biopsy of the gastric pouch. RECOMMENDATION: Await pathology results. GI recommendations per inpatient GI consultation team. abdominal u/s 01/15/17- IMPRESSION: No sonographic evidence for gallstones or acute cholecystitis. ct kub 01/15/2017- IMPRESSION: 1. In the absence of contrast, no acute findings to explain epigastric and periumbilical abdominal pain. 2. Trace free abdominal and pelvic fluid, expected with peritoneal dialysis catheter. Recs: 1) cont antireflux medication addition to Carafate. 2) gerd diet 3) await bx results 4) ok to d/c home from gi standpoint will cont to follow Problems: VTE Prophylaxis: SCDs Resuscitation Status: CPR: Attempt Resuscitation Meng Hernandez MD Jan 17, 2017 12:58
--- NOTE | 2017-01-17 14:36 | NUR ---
NUTRITION ASSESSMENT: ASSESS: 51YO F admit with abdominal pain of unclear etiology, GI consulted awaiting pathology results. Pt with h/o DM prior to gastric bypass, reports no longer dm p bypass surgery with c/o hypoglycemia, BG of 37, A1c 4.8. PMHX: ESRD on peritoneal dialysis, gastric bypass, DM/hypoglycemia-as noted above. DIET: General. PO 25-75% (per RN notes). eating without difficulty per MD notes. LABS: BUN 37, Cr 6.06,Ca 8.2, Phos 6.1, Alb 2.3 MEDS: Reviewed GI: No BM WEIGHT: 58.6kg BMI: 22.0 EST.NEEDS: PERITONEAL DIALYSIS (30-35kcal/kg;1.2-2.0g/kg pro) Kcal: [id number] Pro: 70-115g NUTRITION DIAGNOSIS: (1) Altered GI tract function related to h/o gastric bypass, current reports of abdominal pain of unknown etiology as evidenced by n/v. INTERVENTION: (1) Diet modified to small portions/low refined sugar (prevention of dumping syndrome). MONITOR/EVALUATE: PO intake, GI status, lab values. F/U per moderate risk.
--- NOTE | 2017-01-17 15:40 | DRSVH ---
PROCEDURE: ANGIO ABD/PELVIS W/CON INDICATIONS: abdominal pain TECHNIQUE: After the administration of intravenous contrast, 2 and 5 mm sections acquired from the diaphragm to the iliac crests. 3-dimensional maximum intensity projection (MIP) coronal and sagittal reformats, a nd/or 3-dimensional volume rendering reformatting was then performed. For radiation dose reduction, the following was used: automated exposure control. COMPARISON: None. FINDINGS: Image quality: Excellent. Extravascular tissues: Lung bases are clear. Heart size is normal. Liver and spleen are normal in size and enhancement. Gallbladder is distended with no visible calcifications or wall thickening. B iliary system is non dilated. Pancreas enhances normally. No adrenal nodules. Kidneys are atrophic without hydronephrosis. Non-opacified bowel loops demonstrate normal wall thickness and caliber. A moderate amount of ascites is present. A percutaneous peritoneal drain is present on the right, joseline tible with dialysis catheter. No free air. No retroperitoneal or mesenteric adenopathy. No ventral hernias. No suspicious bony abnormalities. No vertebral body compression fractures. IUD is present in the central portion of the uterus. There is a mild amount of edema throughout the soft tissues of the abdominal and pelvic vega. Abdominal aorta: The abdominal aorta shows scattered atheromatous calcified plaque. Caliber is normal . Major branches including celiac artery, SMA, YAIMA and renal arteries remain patent. IMPRESSION: 1. Aorta shows no aneurysm or dissection. Major branches are patent. 2. Moderate amount of ascites with edema throughout the subcutaneous tissues. Dialysis catheter in pl anibal. 3. Bilateral renal cortical atrophy. 4. Uterine IUD present. Dictated by: Eligio Tovar M.D. on 01/17/2017 at 15:31 Approved by: Eligio Tovar M.D. on 01/17/2017 at 15:38
--- NOTE | 2017-01-17 16:26 | NUR ---
Nausea/Pain/Appetite Patient still nauseous despite of IV Zofran administration, eating only 3-4 bites of meals this shift. Stating " I think it's all psychological now, since I had my surgery, I'm scared to eat now,". Patient educated and offered if we can give antiemetic meds before meal, agreeable with plan. Pain 8/10 IV pain meds effective. Will continue to monitor. Patient requested labs and diagnostics result to be forwarded to her GI doctor at [facility], form faxed to Medical Records.
--- NOTE | 2017-01-17 17:50 | PCM.PNMED ---
Subjective Date of Service Jan 17, 2017 Subjective Patient is seen and examined. She states that this is no change in her level of pain, she was really hungry this a.m. then Dr. Walker came to visit with her due date and large breakfast, but became nauseated and threw up soon after. She was unable to eat much lunch. Exam Vital Signs Vital Sign - Last Date Time Temp Pulse Resp B/P Pulse Ox O2 Delivery O2 Flow Rate FiO2 01/17/17 07:23 36.7 74 18 158/75 98 Room Air Intake and Output 01/16/17 01/16/17 01/17/17 Cumulative From/Thru 15:00 23:00 07:00 01/15/17 15:13 - 01/16/17 18:40 Intake Total 100 ml 573 ml 2761 ml Balance 100 ml 573 ml 2761 ml Intake Oral 400 ml 400 ml IV Total 100 ml 173 ml 2361 ml # Voids 2 Exam General: NAD HEENT: NCAT Heart: RRR, no S4 mumurs Lungs: CTA no crackles or wheezes Abd: Soft, no rashes, normal bowel sounds, tender in RUQ, RLQ. PD cath on RLQ ExT: No edema Psych: No anxiety Neuro: AOA X 3, no focal deficits Skin: Abdominal peritoneal catheter site appears clean and dry IVs and Medications IV Fluids Discontinued Medications Reviewed: Medications were reviewed in detail Lab and Diagnostics Result Diagram: 01/16/1761801/16/17618 X-Rays, CTs and MRIs Date of Service: 01/15/17 PROCEDURE: CT KUB INDICATIONS: 51 year-old female with end-stage renal disease and prior gastric bypass surgery, now with epigastric and periumbilical abdominal pain. IMPRESSION: 1. In the absence of contrast, no acute findings to explain epigastric and periumbilical abdominal pain. 2. Trace free abdominal and pelvic fluid, expected with peritoneal dialysis catheter. Dictated by: Daniel Matias M.D. on 01/15/2017 at 16:46 Approved by: Daniel Matias M.D. on 01/15/2017 at 16:54 PROCEDURE: US ABDOMEN, LIMITED ([id number]) INDICATIONS: 51 year-old female with right upper quadrant abdominal pain. Assess for gallstones. IMPRESSION: No sonographic evidence for gallstones or acute cholecystitis. Dictated by: Daniel Matias M.D. on 01/15/2017 at 20:20 Approved by: Daniel Matias M.D. on 01/15/2017 at 20:23 Assessment & Plan This is a pleasant 51-year-old female history of end-stage renal disease on daily peritoneal dialysis, hypertension, diabetes, history of CVA gastric bypass in 2012 with a prior history of peritonitis from peritoneal dialysis catheter who presented to the ED with acute onset intermittent bandlike upper abdominal and epigastric pain. Associated with pink blood-tinged vomitus. Patient was admitted for possible GI bleed and acute bacterial peritonitis. # Acute abdominal pain, POA - Perforated viscus is difficult to rule out given history of abdominal peritoneal dialysis. - Admission Vital signs: Showed temperature 36.5, pulse 69, respiratory rate 18 , BP 185/94 map 124, O2 99% on room air. - She was seen by Dr. Hamilton in December of this year who planned on doing EGD at that time, secondary to intractable nausea and vomiting. - Suspected acute GI bleed secondary to history of ulcers and NSAID use. GI was consulted. EGD was done on 9 AM no evidence of ulcers, d/c protonix drip. Famotidine 10 mg PO BID. - Admission Hemogram showed: CBC is 5.1, PMNs 61.9% without evidence of bands, H /H was 11.5/35.6, platelets were normal at 275, patient did have elevated eosinophils 5.7 - CT KUB showed: In the absence of contrast, no acute findings to explain epigastric and periumbilical abdominal pain. Trace free abdominal and pelvic fluid, expected with peritoneal dialysis catheter. - Abdominal ultrasound to rule out biliary etiologies: No cholecystitis --No Pd fluid sample was sent form ED per micro lab, resent it this am. Dr. Baker from nephrology was contacted in the AM. She has seen the patient: She reordered the PD fluid cx as she feels it is collected incorrectly. We appreciate her recommendations -- Peritonial fluid cultures from this morning show low concern for infection. Peritoneal fluid has white cells 4 colorless, cloudy. Gram stain and anaerobic cultures are pending -- Discussed the possibility of diabetic gastroparesis with GI, Dr. Stephen sees no concern for that because she is status post bypass, and she does not have much of her stomach left. -- Because patient has risk factors of atherosclerosis, diabetes she is at risk for mesenteric ischemia. Discussed a CTA study to rule this out with Dr. Baker, she approves. CTA abdominopelvic was ordered -- Treat possible gastroparesis with small PO dose reglan per Dr. Baker # End stage renal disease on peritoneal dialysis daily, POA - Patient gets daily peritoneal dialysis since 2011, with PD catheter placed in the right lower quadrant. She has functional left upper extremity fistula although this is not utilized. - Patient reports 2 days of taking NSAID Aleve for her abdominal pain. - High suspicion for acute bacterial peritonitis despite normal white blood cell count remains. Peritoneal dialysis fluid was sent for cell count, differential, Gram stain and culture per nephrology recommendation. - At the time of her admission Nephrology Dr. Powers to be notified by phone of the results prior to starting antibiotics. - Patient's baseline creatinine is 6.7 in December 2016, currently creatinine of 6.5. - Admission Chemistry panel for: A BUN of 37, creatinine 6.30 in a patient with a baseline creatinine of 6.7 back in December. Lactic acid was 1.2, calcium was low at 7.8 - KUB CT showed no peritoneal fluid, the abdomen was not tapped. -- Nephro is consulted started pericardial dialysis on 01/16 evening # Acute Hypocalcemia, POA - Likely secondary to chronic kidney disease - Total protein 5.6, albumin 2.6 # Acute Mildly elevated lipase, POA - Lipase 61 on 01/16, normalized on 01/17 # Hypoglycemia, POA - History of Diabetes mellitus, previously on insulin. She states since she had her gastric bypass she is not required insulin or diabetic medications and has problems with hypoglycemia - Fingerstick glucose on admit 70 -- Diabetic hypoglycemia protocol is initiated Chronic problems #Hx severe anemia - Likely secondary to end-stage renal disease # Hx of CVA - On aspirin 81 mg at home - We will hold aspirin for now, and restart as soon as GI bleed ruled out # Hx peritonitis - 2013 --- Peritoneal fluid has white cells 4 colorless, cloudy. Gram stain and anaerobic cultures are pending # Hypertension chronic presumed stable - Patient on losartan 50 mg at home daily - We will continue losartan - She reports she took 2 on day of admission for blood pressures to 298/190, - Gave labetalol 20 mg IV once for blood pressure 205 systolic - We will continue to monitor blood pressures # Diabetes mellitus presumed stable - Not currently on insulin ordered antidiabetic medication - Now she has a problem with hypoglycemia - Fingerstick glucose on admit 70 - D50 once with Finger stick glucose in 2 hours - bg 69 9/10 am, changed fluids to D5 50 cc/hr as she has already descended the diabetes protocol # Chronic pain presumed stable - On Percocet 09/08/2024 at home every 4 hours, will hold by mouth meds for expected upper endoscopy in the morning High risk Meds: IV dilaudid Disposition: Upon further review, patient is admitted for observation stay due to presenting condition and complications CODE STATUS: Full code PCP: Dr. Ashley Wetzel Donor Floor Technician: Dr. Hanson Urologist Dr. Solis DVT PE prophylaxis: SCD's Contact: Willis Carrera [phone] Pain Evaluation: Adequate Pain Control VTE Prophylaxis: SCDs Resuscitation Status: CPR: Attempt Resuscitation Time spent 30 min Jyoti Hubbard DO Jan 17, 2017 07:36
--- NOTE | 2017-01-17 19:55 | NUR ---
Peritoneal dialysis note PD cath intact initial drain clear no complaints of pain treatment started without complications exit site dressing CDI, exit site benign with no signs of infection, dressing change complete, pt tolerated well will disconnect pt in am Addendum: 01/18/17 at 0744 by VÍCTOR FLETCHER RN treatment complete no alarms throughout night pt tolerated treatment well, reports no pain or discomfort drainage clear disconnect without difficulty See DTR for complete treatment record
[2017-01-17] MEDS ORDERED: HYDROmorphone 0.5 mg/0.5 mL iSecure Syringe IVPUSH PRN (20:30)
[2017-01-18] VITALS (21 sets, daily range): BP systolic 112–166; BP diastolic 63–88; PULSE 51–89; RESP 14–18; O2SAT 91–100
[2017-01-18] MEDS: HYDROmorphone 0.5 mg/0.5 mL iSecure Syringe IVPUSH PRN ×2 (05:01→08:48)
[2017-01-18] MEDS: Polyethylene Glycol (PEG) 17 Gm Powder PO PRN (08:49)
[2017-01-18] MEDS: Sucralfate 100 mg/mL 10 mL Suspension PO SCH ×4 (08:49→16:55)
[2017-01-18] MEDS ORDERED: HYDROmorphone 1 mg/mL Inj IVPUSH PRN ×2 (09:15→18:45)
[2017-01-18] MEDS ORDERED: HYDROmorphone 0.5 mg/0.5 mL iSecure Syringe IVPUSH PRN (10:52)
[2017-01-18] MEDS ORDERED: HYDROmorphone 1 mg/mL Inj IVPUSH ONE (11:00)
--- NOTE | 2017-01-18 11:08 | PCM.PNNEPH ---
Subjective Date of Service Jan 18, 2017 Subjective Tolerated PD well overnight. CTA of abd showed patent SMA. Exam Vital Signs Vital Sign - Last Date Time Temp Pulse Resp B/P Pulse Ox O2 Delivery O2 Flow Rate FiO2 01/18/17 09:00 69 18 166/88 91 01/18/17 05:03 36.6 Room Air Intake and Output 01/17/17 01/17/17 01/18/17 Cumulative From/Thru 15:00 23:00 07:00 01/15/17 15:13 - 01/17/17 19:30 Intake Total 387 ml 378 ml 3526 ml Output Total 1871.00 ml 2881.00 ml Balance 387 ml -1493.00 ml 645.00 ml Intake Oral 318 ml 718 ml IV Total 387 ml 2748 ml Tube Irrigant 60 ml 60 ml Output Ultrafiltrate 1871.00 ml 2881.00 ml # Voids 4 4 10 # Bowel Movements 1 1 Exam General appearance: Awake, alert, oriented x3. Not in acute distress. HEENT: Mild pallor, no jaundice. No JVD. No lymphadenopathy. No thyroid enlargement. Heart: Regular rhythm. Normal S1, S2. Soft systolic murmur noted. No rubs, no gallops. Lungs: Clear to auscultation bilaterally. No wheezing. No rhonchi. Abdomen: Soft, active bowel sounds. Mild tenderness on the epigastric area and upper abdomen. Nondistended. No hepatosplenomegaly. Peritoneal dialysis catheter on the right lower quadrant which is dry, clean, and intact. Extremities: No edema, cyanosis, or clubbing of fingers. Lab and Diagnostics Result Diagram: 01/17/17 0757 01/18/17 0745 X-Rays, CTs and MRIs Date of Service: 01/15/17 PROCEDURE: CT KUB INDICATIONS: 51 year-old female with end-stage renal disease and prior gastric bypass surgery, now with epigastric and periumbilical abdominal pain. IMPRESSION: 1. In the absence of contrast, no acute findings to explain epigastric and periumbilical abdominal pain. 2. Trace free abdominal and pelvic fluid, expected with peritoneal dialysis catheter. Dictated by: Daniel Matias M.D. on 01/15/2017 at 16:46 Approved by: Daniel Matias M.D. on 01/15/2017 at 16:54 PROCEDURE: US ABDOMEN, LIMITED ([id number]) INDICATIONS: 51 year-old female with right upper quadrant abdominal pain. Assess for gallstones. IMPRESSION: No sonographic evidence for gallstones or acute cholecystitis. Dictated by: Daniel Matias M.D. on 01/15/2017 at 20:20 Approved by: Daniel Matias M.D. on 01/15/2017 at 20:23 Plan Impression 1. Persistent nausea and vomiting and epigastric pain, unknown etiology. 2. End-stage renal disease, on peritoneal dialysis. No evidence of peritonitis. 3. Hypoglycemia, resolved. 4. History of obesity, status post gastric bypass in 2012. 5. History of type 2 diabetes, not requiring any hypoglycemic agents. 6. Hypertension with hypertensive nephrosclerosis. 7. Renal osteodystrophy. 8. Anemia of chronic kidney disease. PLAN: 1. Increase labetalol 200 mg BID, continue losartan and norvasc. 2. Continue PD tonight: 10 hr, 4 cycles, 2.5% dextrose 6L, last fill 20 ml. 3. Follow GI recommendation. 4. Resume calcium acetate Darryl Maurice MD Jan 18, 2017 11:08
--- NOTE | 2017-01-18 12:07 | PCM.PNMED ---
Subjective Date of Service Jan 18, 2017 Subjective GASTROENTEROLOGY PROGRESS NOTE: Attending Physician: Meng Hernandez MD Resident Physician: Sadia Trinidad DO No acute events overnight. Patient continues to report severe lower abdominal pain associated with significant nausea and one episode of emesis this morning. She denies fever, chills, urinary symptoms, and reports one normal BM yesterday. Exam Vital Signs Vital Sign - Last Date Time Temp Pulse Resp B/P Pulse Ox O2 Delivery O2 Flow Rate FiO2 01/18/17 09:00 69 18 166/88 91 01/18/17 05:03 36.6 Room Air Intake and Output 01/17/17 01/17/17 01/18/17 Cumulative From/Thru 15:00 23:00 07:00 01/15/17 15:13 - 01/17/17 19:30 Intake Total 387 ml 378 ml 3526 ml Output Total 1871.00 ml 2881.00 ml Balance 387 ml -1493.00 ml 645.00 ml Intake Oral 318 ml 718 ml IV Total 387 ml 2748 ml Tube Irrigant 60 ml 60 ml Output Ultrafiltrate 1871.00 ml 2881.00 ml # Voids 4 4 10 # Bowel Movements 1 1 Exam General: Ill-appearing, nontoxic woman in mild distress. Appears uncomfortable, lying on her side holding her abdomen. Communicating appropriately HEENT: Atraumatic, no scleral icterus. Mucous membranes moist/pink Lungs: Clear to auscultation Cardiac: Regular rate and rhythm. Normal S1, S2. No murmurs Abdomen: Soft, non-distended, exquisitely tender to palpation throughout particularly epigastric area. No ascites. Peritoneal dialysis catheter without surrounding erythema or purulence. Extremities: Warm, well-perfused, no edema Neurologic: AOx3, no focal deficit. Normal speech . IVs and Medications Medications Reviewed: Medications were reviewed in detail Lab and Diagnostics Result Diagram: 01/17/17 0757 01/18/17 0745 X-Rays, CTs and MRIs 01/15/17 - CT KUB IMPRESSION: 1. In the absence of contrast, no acute findings to explain epigastric and periumbilical abdominal pain. 2. Trace free abdominal and pelvic fluid, expected with peritoneal dialysis catheter. Approved by: Daniel Matias M.D. on 01/15/2017 at 16:54 01/15/17 - US ABDOMEN, LIMITED IMPRESSION: No sonographic evidence for gallstones or acute cholecystitis. Approved by: Daniel Matias M.D. on 01/15/2017 at 20:23 01/17/17 - ANGIO ABD/PELVIS W/CON IMPRESSION: 1. Aorta shows no aneurysm or dissection. Major branches are patent. 2. Moderate amount of ascites with edema throughout the subcutaneous tissues. Dialysis catheter in place. 3. Bilateral renal cortical atrophy. 4. Uterine IUD present. Approved by: Eligio Tovar M.D. on 01/17/2017 at 15:38 . Assessment & Plan A 51-year-old, female with a history of end-stage renal disease, on peritoneal dialysis 2011, diabetes type 2, hypertension status post gastric bypass in 2012, tubal ligation, throat abscess, carotid artery stenosis, chronic kidney disease stage 4 presents here for epigastric pain. The differential diagnosis includes anastomotic ulcer versus uncontrolled gastroesophageal reflux disease versus esophagitis versus duodenitis. 01/18/2017- pt with severe abdominal pain and appear to have peritoneal signs. Would recommend IV abx for possible peritonitis and touch base with Gen surgery or Renal in regards to whether the peritoneal catheter needs to be removed given pt most likely with peritonitis. Persistent nausea and vomiting and epigastric pain, unknown etiology, in a patient with ESRD concerning for SBP. - EGD on 01/16/17 showed a Kimi-en-Y gastric bypass but was otherwise normal. - Abdominal US with on evidence of gallstones or acute cholecystitis. - CT KUB showed no acute findings to explain epigastric and periumbilical abdominal pain.Trace free abdominal and pelvic fluid, expected with peritoneal dialysis catheter. - daily peritoneal dialysis since 2011, with PD catheter placed in the right lower quadrant. - High suspicion for acute bacterial peritonitis despite normal white blood cell count remains. - Peritoneal dialysis fluid was sent for cell count, differential, Gram stain and culture per nephrology recommendation. - KUB CT showed no peritoneal fluid, the abdomen was not tapped. RECOMMENDATIONS: -Continue antireflux medication addition to Carafate. -GERD diet -Await bx results - IV abx per hospitalist team - CT abdomen and pelvis - Highly recommend consultation with Gen surgery or Renal in regards to whether the peritoneal catheter needs to be removed given pt most likely with peritonitis. will cont to follow. Additional problems managed by primary Hospitalist and/or Nephrology: -End stage renal disease on peritoneal dialysis daily -Hypocalcemia -Mildly elevated lipase -Hypoglycemia -Hx of CVA -Hx peritonitis -Hypertension chronic -Diabetes mellitus -Chronic pain VTE Prophylaxis: SCDs Resuscitation Status: CPR: Attempt Resuscitation Sadia Trinidad DO Jan 18, 2017 12:07 Meng Hernandez MD Jan 18, 2017 13:15 This is a pleasant 51-year-old female history of end-stage renal disease on daily peritoneal dialysis, hypertension, diabetes, history of CVA gastric bypass in 2012 with a prior history of peritonitis from peritoneal dialysis catheter who presented to the ED with acute onset intermittent bandlike upper abdominal and epigastric pain. Associated with pink blood-tinged vomitus. Patient was admitted for possible GI bleed and acute bacterial peritonitis. # Acute abdominal pain, POA - Perforated viscus is difficult to rule out given history of abdominal peritoneal dialysis. - Admission Vital signs: Showed temperature 36.5, pulse 69, respiratory rate 18 , BP 185/94 map 124, O2 99% on room air. - She was seen by Dr. Hamilton in December of this year who planned on doing EGD at that time, secondary to intractable nausea and vomiting. - Suspected acute GI bleed secondary to history of ulcers and NSAID use. GI was consulted. EGD was done on 9/10 AM no evidence of ulcers, d/c protonix drip. Famotidine 10 mg PO BID. - Admission Hemogram showed: CBC is 5.1, PMNs 61.9% without evidence of bands, H /H was 11.5/35.6, platelets were normal at 275, patient did have elevated eosinophils 5.7 - CT KUB showed: In the absence of contrast, no acute findings to explain epigastric and periumbilical abdominal pain. Trace free abdominal and pelvic fluid, expected with peritoneal dialysis catheter. - Abdominal ultrasound to rule out biliary etiologies: No cholecystitis --No Pd fluid sample was sent form ED per micro lab, resent it this am. Dr. Baker from nephrology was contacted in the AM. She has seen the patient: She reordered the PD fluid cx as she feels it is collected incorrectly. We appreciate her recommendations -- Peritonial fluid cultures from this morning show low concern for infection. Peritoneal fluid has white cells 4 colorless, cloudy. Gram stain and anaerobic cultures are pending -- Discussed the possibility of diabetic gastroparesis with GI, Dr. Stephen sees no concern for that because she is status post bypass, and she does not have much of her stomach left. -- Because patient has risk factors of atherosclerosis, diabetes she is at risk for mesenteric ischemia. Discussed a CTA study to rule this out with Dr. Baker, she approves. CTA abdominopelvic was ordered -- Treat possible gastroparesis with small PO dose reglan per Dr. Baker # End stage renal disease on peritoneal dialysis daily, POA - Patient gets daily peritoneal dialysis since 2011, with PD catheter placed in the right lower quadrant. She has functional left upper extremity fistula although this is not utilized. - Patient reports 2 days of taking NSAID Aleve for her abdominal pain. - High suspicion for acute bacterial peritonitis despite normal white blood cell count remains. Peritoneal dialysis fluid was sent for cell count, differential, Gram stain and culture per nephrology recommendation. - At the time of her admission Nephrology Dr. Munguiawin to be notified by phone of the results prior to starting antibiotics. - Patient's baseline creatinine is 6.7 in December 2016, currently creatinine of 6.5. - Admission Chemistry panel for: A BUN of 37, creatinine 6.30 in a patient with a baseline creatinine of 6.7 back in December. Lactic acid was 1.2, calcium was low at 7.8 - KUB CT showed no peritoneal fluid, the abdomen was not tapped. -- Nephro is consulted started pericardial dialysis on 01/16 evening # Acute Hypocalcemia, POA - Likely secondary to chronic kidney disease - Total protein 5.6, albumin 2.6 # Acute Mildly elevated lipase, POA - Lipase 61 on 01/16, normalized on 01/17 # Hypoglycemia, POA - History of Diabetes mellitus, previously on insulin. She states since she had her gastric bypass she is not required insulin or diabetic medications and has problems with hypoglycemia - Fingerstick glucose on admit 70 -- Diabetic hypoglycemia protocol is initiated Chronic problems #Hx severe anemia - Likely secondary to end-stage renal disease # Hx of CVA - On aspirin 81 mg at home - We will hold aspirin for now, and restart as soon as GI bleed ruled out # Hx peritonitis - 2013 --- Peritoneal fluid has white cells 4 colorless, cloudy. Gram stain and anaerobic cultures are pending # Hypertension chronic presumed stable - Patient on losartan 50 mg at home daily - We will continue losartan - She reports she took 2 on day of admission for blood pressures to 298/190, - Gave labetalol 20 mg IV once for blood pressure 205 systolic - We will continue to monitor blood pressures # Diabetes mellitus presumed stable - Not currently on insulin ordered antidiabetic medication - Now she has a problem with hypoglycemia - Fingerstick glucose on admit 70 - D50 once with Finger stick glucose in 2 hours - bg 69 9/10 am, changed fluids to D5 50 cc/hr as she has already descended the diabetes protocol # Chronic pain presumed stable - On Percocet 09/08/2024 at home every 4 hours, will hold by mouth meds for expected upper endoscopy in the morning High risk Meds: IV dilaudid Disposition: Upon further review, patient is admitted for observation stay due to presenting condition and complications CODE STATUS: Full code PCP: Dr. Ashley Wetzel Governor Assembler Hydraulic: Dr. Hanson Urologist Dr. Solis DVT PE prophylaxis: SCD's Contact: Willis Carrera [phone] VTE Prophylaxis: SCDs Resuscitation Status: CPR: Attempt Resuscitation Sadia Trinidad DO Jan 18, 2017 12:07
[2017-01-18] MEDS ORDERED: EPHEDrine/NS 5 mg/mL 5 mL Syringe ONE (12:24)
[2017-01-18] MEDS ORDERED: HYDROmorphone 1 mg/mL Inj ONE (12:24)
[2017-01-18] MEDS ORDERED: Ondansetron 2 mg/mL 2 mL Inj ONE (12:24)
[2017-01-18] MEDS ORDERED: fentaNYL-PF 50 mCg/mL 2 mL Inj ONE (12:24)
[2017-01-18] MEDS ORDERED: Propofol 10,000 mCg/mL 20 mL Inj ONE (12:24)
[2017-01-18] MEDS ORDERED: Glycopyrrolate 0.2 MG/ML 1mL Inj ONE (12:24)
[2017-01-18] MEDS ORDERED: Neostigmine 1 mg/mL 10 mL Inj ONE (12:24)
--- NOTE | 2017-01-18 12:32 | NUR ---
Case Management: IMM given and explained to pt. Trisha MONTENEGRO RN
[2017-01-18] MEDS ORDERED: Labetalol 5 mg/mL 20 mL Inj IVPUSH PRN (14:20)
--- NOTE | 2017-01-18 14:26 | PCM.PNMED ---
Subjective Date of Service Jan 18, 2017 Subjective Patient is seen and examiend, severe upper quadrant pain this am. Nauseated, says she vomited everything she took so far. Needed 2 mg of Dilaudid IV to calm her pain. Exam Vital Signs Vital Sign - Last Date Time Temp Pulse Resp B/P Pulse Ox O2 Delivery O2 Flow Rate FiO2 01/18/17 13:30 36.4 66 16 118/73 100 Room Air Intake and Output 01/17/17 01/17/17 01/18/17 Cumulative From/Thru 15:00 23:00 07:00 01/15/17 15:13 - 01/17/17 19:30 Intake Total 387 ml 378 ml 3526 ml Output Total 1871.00 ml 2881.00 ml Balance 387 ml -1493.00 ml 645.00 ml Intake Oral 318 ml 718 ml IV Total 387 ml 2748 ml Tube Irrigant 60 ml 60 ml Output Ultrafiltrate 1871.00 ml 2881.00 ml # Voids 4 4 10 # Bowel Movements 1 1 Exam General: Acute distress HEENT: NCAT Heart: RRR, no s3/s4 Lungs: CTA, no crackles or wheezes Abd: Tender over epigastrium, like a band, no LLQRLQ tenderness, bowel sounds are present, soft, non distended Skin: PD catheter site is clean and dry Ext: No edema Psych: anxious appearing Neuro: No focal deficits IVs and Medications IV Fluids D10W 50 cc/hr Medications Reviewed: Medications were reviewed in detail Lab and Diagnostics Result Diagram: 01/17/17 0757 01/18/17 0745 X-Rays, CTs and MRIs 01/15/17 - CT KUB IMPRESSION: 1. In the absence of contrast, no acute findings to explain epigastric and periumbilical abdominal pain. 2. Trace free abdominal and pelvic fluid, expected with peritoneal dialysis catheter. Approved by: Daniel Matias M.D. on 01/15/2017 at 16:54 01/15/17 - US ABDOMEN, LIMITED IMPRESSION: No sonographic evidence for gallstones or acute cholecystitis. Approved by: Daniel Matias M.D. on 01/15/2017 at 20:23 01/17/17 - ANGIO ABD/PELVIS W/CON IMPRESSION: 1. Aorta shows no aneurysm or dissection. Major branches are patent. 2. Moderate amount of ascites with edema throughout the subcutaneous tissues. Dialysis catheter in place. 3. Bilateral renal cortical atrophy. 4. Uterine IUD present. Approved by: Eligio Tovar M.D. on 01/17/2017 at 15:38 . Assessment & Plan This is a pleasant 51-year-old female history of end-stage renal disease on daily peritoneal dialysis, hypertension, diabetes, history of CVA gastric bypass in 2012 with a prior history of peritonitis from peritoneal dialysis catheter who presented to the ED with acute onset intermittent bandlike upper abdominal and epigastric pain. Associated with pink blood-tinged vomitus. Patient was admitted for possible GI bleed and acute bacterial peritonitis. # Acute abdominal pain, POA active - Perforated viscus is difficult to rule out given history of abdominal peritoneal dialysis. - Admission Vital signs: Showed temperature 36.5, pulse 69, respiratory rate 18 , BP 185/94 map 124, O2 99% on room air. - She was seen by Dr. Hamilton in December of this year who planned on doing EGD at that time, secondary to intractable nausea and vomiting. - Suspected acute GI bleed secondary to history of ulcers and NSAID use. GI was consulted. EGD was done on 910 AM no evidence of ulcers, d/c protonix drip. Famotidine 10 mg PO BID. - Admission Hemogram showed: CBC is 5.1, PMNs 61.9% without evidence of bands, H /H was 11.5/35.6, platelets were normal at 275, patient did have elevated eosinophils 5.7 - Admission CT KUB showed: In the absence of contrast, no acute findings to explain epigastric and periumbilical abdominal pain. Trace free abdominal and pelvic fluid, expected with peritoneal dialysis catheter. - Abdominal ultrasound to rule out biliary etiologies: No cholecystitis -- 01/17 Peritonial fluid cultures from this morning show low concern for infection. Peritoneal fluid has white cells 4 colorless, cloudy. Gram stain and anaerobic cultures are ngtd -- 01/17 Discussed the possibility of diabetic gastroparesis with GI, Dr. Stephen sees no concern for that because she is status post bypass, and she does not have much of her stomach left. -- 01/17 Because patient has risk factors of atherosclerosis, diabetes she is at risk for mesenteric ischemia. Discussed a CTA study to rule this out with Dr. Baker, she approves. CTA abdominopelvic was ordered -- Treat possible gastroparesis with small PO dose reglan per Dr. Baker, started her on reglan poo discontineud on 01/18 as she worsened -- 01/17 CTA abd/pelvic showed no concern for mesenteric ischemia -- Dr. Hernandez has ordered a HIDA, was cancelled due to pain - dilaudid 1 mg Q3H PRN -- Consulted gen surg to review the case r/o hherniation of stomach -- CTa bd/pelvic WO ordered -- DR Hernandez was notified -- D10W 50 cc/hr as she is prone to hypoglycemia -- Dr. Baker is notified, low suspicion for SBP, no plans to remove catheter at this time -- Troponins are mildly elevated this am, from renal disease likely. -- EKG is ordered and reviewed:significant repolarization changes, LA dilation noted # End stage renal disease on peritoneal dialysis daily, POA - Patient gets daily peritoneal dialysis since 2011, with PD catheter placed in the right lower quadrant. She has functional left upper extremity fistula although this is not utilized. - Patient reports 2 days of taking NSAID Aleve for her abdominal pain. - High suspicion for acute bacterial peritonitis despite normal white blood cell count remains. Peritoneal dialysis fluid was sent for cell count, differential, Gram stain and culture per nephrology recommendation. - At the time of her admission Nephrology Dr. Powers to be notified by phone of the results prior to starting antibiotics. - Patient's baseline creatinine is 6.7 in December 2016, currently creatinine of 6.5. - Admission Chemistry panel for: A BUN of 37, creatinine 6.30 in a patient with a baseline creatinine of 6.7 back in December. Lactic acid was 1.2, calcium was low at 7.8 - KUB CT showed no peritoneal fluid, the abdomen was not tapped. -- Nephro is consulted started pericardial dialysis on 01/16 evening # Acute Hypocalcemia, POA - Likely secondary to chronic kidney disease - Total protein 5.6, albumin 2.6 # Acute Mildly elevated lipase, POA - Lipase 61 on 01/16, normalized on 01/17 # Hypoglycemia, POA - History of Diabetes mellitus, previously on insulin. She states since she had her gastric bypass she is not required insulin or diabetic medications and has problems with hypoglycemia - Fingerstick glucose on admit 70 -- Diabetic hypoglycemia protocol is initiated Chronic problems #Hx severe anemia - Likely secondary to end-stage renal disease # Hx of CVA - On aspirin 81 mg at home - We will hold aspirin for now, and restart as soon as GI bleed ruled out # Hx peritonitis - 2013 --- Peritoneal fluid has white cells 4 colorless, cloudy. Gram stain and anaerobic cultures are pending # Hypertension chronic presumed stable - Labetalol IV PRN, she not tolerating PO meds - We will continue to monitor blood pressures # Diabetes mellitus presumed stable - Not currently on insulin ordered antidiabetic medication - Now she has a problem with hypoglycemia - D10W 50 cc/hr as she is not eating # Chronic pain presumed stable - On Percocet 09/08/2024 at home every 4 hours, will hold by mouth meds for expected upper endoscopy in the morning High risk Meds: IV dilaudid Disposition: Upon further review, patient is admitted for observation stay due to presenting condition and complications CODE STATUS: Full code PCP: Dr. Ashley Wetzel Raisin Separator Operator: Dr. Hanson Urologist Dr. Solis DVT PE prophylaxis: SCD's Contact: Willis Carrera [phone] Pain Evaluation: Adequate Pain Control VTE Prophylaxis: SCDs Resuscitation Status: CPR: Attempt Resuscitation Time spent 30 min VTE Prophylaxis: SCDs Resuscitation Status: CPR: Attempt Resuscitation Time spent 30 min Jyoti Hubbard DO Jan 18, 2017 14:26 Time spent 30 min VTE Prophylaxis: SCDs Resuscitation Status: CPR: Attempt Resuscitation Jyoti Hubbard DO Jan 18, 2017 14:26
--- NOTE | 2017-01-18 15:50 | PCM.HPANE ---
Patient Data Surgeon Admitting Provider:Kobe Vieira MD Attending Provider:Jyoti Hubbard DO Primary Care Physician:Karina Tong DO Other Provider: Reason for Visit Abdominal Pain Ht/WT & BMI Height (Feet): 5 Height (Inches): 3.00 Weight (Kilograms): 58.640 Body Mass Index 22.00 Allergies Coded Allergies: niacin (Verified Allergy, Unknown, UNKNOWN, 09/24/16) Past Anesthesia History Anesthesia History: Denies:: Abnormal Airway, Anesthesia Reactions, Difficult Intubation, Fam Anesthesia Reaction, Fam Malignant Hypertherm, Malignant Hyperthermia Diabetes History Hx Diabetes?: Yes (neuropathy) Type of Diabetes: Type II Glycemic Control: Insulin Dependent Current Bedside Blood Glucose: 115 MRSA MRSA: No Medications Blood Thinner: Aspirin Reported Medications Gabapentin 300 Mg [id number] Mg PO HS PRN For Pain #30 01/15/17 Ropinirole 1 Mg Tablet1 Mg PO HS PRN For Pain #60 01/15/17 oxyCODONE-Acetaminophen 5-325 mg 1 Each Tablet1-2 Tablet PO every 4-6hrs PRN For Pain #120 01/15/17 Venlafaxine 25 Mg Txiwps60 Mg PO HS #30 01/15/17 Ondansetron 4 Mg Tablet4 Mg PO TID #100 01/15/17 Calcium Acetate 667 Mg Capsule6 Capsule PO TID #180 01/15/17 Aspirin Chew 81 Mg Chew81 Mg PO DAILY Ref 0 01/15/17 Losartan Potassium 50 Mg Vmljmz35 Mg PO BID #60 01/15/17 Discontinued Reported Medications [sodium bicarbonate] No Conflict Check1,300 Mg PO BID 01/31/12 Furosemide-Expunged Drug, Do Not Renew! (Lasix-Expunged Drug, Do Not Renew!)20 Mg Idfgdb41 Mg PO TID 01/26/11 Carvedilol-Expunged Drug, Do Not Renew! 12.5 Mg Iusztt90 Mg PO BID 01/26/11 AmLODIPine-Expunged Drug, Do Not Renew! 10 Mg Qnxmwk48 Mg PO DAILY 01/26/11 Losartan/HCTZ-Expunged Drug, Do Not Renew! (Losartan/HCTZ 50/12.5-Expunged, Do Not Renew!)1 Each Tablet1 Each PO BID 01/26/11 Citalopram-Expunged Drug, Do Not Renew! 10 Mg Jkxuvz28 Mg PO DAILY 01/26/11 Ferrous Sulfate-Expunged Drug, Do Not Renew! (Feosol-Expunged Drug, Do Not Renew !)325 Mg Xelfrr023 Mg PO TID 05/03/10 INSULIN GLARGINE-Expunged Drug, Do Not Renew! (Lantus-Expunged Drug, Do Not Renew!)100 Unit/1 Ml Tgpc017 U Sq Hs 05/03/10 Aspirin-Expunged Drug, Do Not Renew! 325 Mg Anfhqt779 Mg PO DAILY 05/03/10 Insulin Lispro-Expunged Drug, Do Not Renew! (Humalog-Expunged Drug, Do Not Renew !)100 U/Ml Itrn94-11 U SQ 10 mins before meals 05/03/10 History History of ENT Problems?: Yes HEENT History: Positive for:: Glaucoma Denies:: Abnormal Airway Cataracts Difficult Intubation Dysphagia Hearing Problem Sinus Problem Denture Type: None Teeth Condition: Within Normal Limits Hx of Heart Problems?: Yes Cardiovascular History: Positive for:: Edema (PEDAL) Hypertension Denies:: AICD Atrial Fibrillation Cardiac Surgery Chest Pain Congestive Heart Failure Heart Murmur Irregular Heartbeat Pacemaker Thrombophlebitis Valvular Heart Disease Hx of Respiratory Problem?: No Respiratory History: Denies:: Asthma COPD Chest Surgery Cough Dyspnea Emphysema Hemoptysis Pneumonia Tuberculosis Use of C-PAP Machine Hx Neurologic Problems?: Yes Neurological History: Positive for:: CVA (04/2010 NO RESIDUAL FROM STROKE. ) Headaches (REMOTE HX) Denies:: Alzheimer's Disease Dementia Dizziness Parkinson's Disease Seizures Hx of GI Problems?: Yes Other GI Pertinent History: gastric bypass 2014 Hx of Problems?: Yes Genitourinary History: Denies:: Kidney Stones Urinary Tract Infection HX of Peritoneal Dialysis: Yes (NIGHTLY S/P A/V FISTULA-THROMBOSED NEEDS NEW FISTULA=CURRENT PROBLEM) Female Hx: Denies:: Currently Endometriosis Pelvic Inflammatory Problems with Breasts? Skin History: Denies:: History Skin Disorders? Pressure Ulcers Hx Musculoskeletal Problems?: No Musculoskeletal History: Positive for:: Back Injury (slipped disc) Denies:: Joint Replacement Musculoskeletal Trauma Hx of Psycho/Social Problems?: Yes Psycho Social History: Positive for:: Anxiety Hx Depression Denies:: Bipolar Disorder Suicide Attempt Hx Surgeries?: Yes (fistula placement x 2, peritoneal dialysis catheter placement, tubal) Hx Any Other Health Problems?: Yes Other History: Positive for:: Cancer (Cervical 1989) Hospitalization (gastric bypass, stroke) Denies:: Endocrine Disease Thyroid Disease History Blood Transfusions: Positive for:: Accept Blood Products? Blood Transfusions Denies:: Blood Transfuse Reaction Hx Diabetes: Yes (neuropathy)Bedside Blood Glucose: 115 Hx Alcohol Use: Yes (0.5 glass wine on special occasions)Hx Substance Use: No Smoking Status: Former Smoker Have You Smoked inLast 12 mo: No Stop/Bang Treated for Sleep Apnea?: No Do You Have a CPAP Machine?: No S-Snoring: Do You Snore Loudly: No T-Tired: feel tired, fatigued: No O-Obsered: Observed not breath: No P-Blood Pressure: treated: Yes B- Body Mass Index > 35 kg/m2: No A- Age over 50: No N- Neck Large Circumference: No G- Gender Male: No VASQUEZ Total Score: 1 Risk Assessment Category Category 1A: Patient has history of documented sleep apnea, and HAS NOT received any narcotic, sedative or anesthesia administration during this stay. Category 1B: Patient has history of documented sleep apnea, and HAS received any narcotic , sedative or anesthesia administration during this stay Category 2: Patient has SUSPECTED Obstructive Sleep Apnea, and HAS received any narcotic , sedative or anesthesia administration during this stay. Category 3: Patient has SUSPECTED Obstructive Sleep Apnea and HAS NOT received narcotic, sedative or anesthesia administration during this stay. Category 4: Outpatient in Procedural Areas with known sleep apnea or who screen positive for High Risk via the STOP/BANG questionnaire. Exam Exam Vital Signs Vital Signs Date Time Temp Pulse Resp B/P Pulse Ox O2 Delivery O2 Flow Rate FiO2 01/18/17 13:30 36.4 66 16 118/73 100 Room Air 01/18/17 12:05 62 01/18/17 09:00 69 18 166/88 91 01/18/17 08:32 70 General Appearance: Alert, Oriented X3 HEENT/AIRWAY: MP 2, Neck Movement (FROM) Lungs: Clear to Auscultation, Normal Air Movement Heart: Exam Unremarkable Meds/Labs/Diagnostics Admission Meds Current Medications Valsartan (Valsartan) 80 mg BID PO Last administered on 01/18/17t 08:49; Start 01/17/17 at 20:30 Metoclopramide HCl (Reglan) 5 mg ACHS PO Last administered on 01/18/17t 08:49; Start 01/17/17 at 22:00; Stop 01/18/17 at 14:21; Status DC Bedside Blood Glucose: 115 Labs Test 01/15/17 15:56 01/15/17 16:35 01/15/17 20:40 01/16/17 06:19 Lactic Acid Level 1.2mmol/L (0.4-2.0) Magnesium Level 2.4mg/dL (1.6-2.6) Hold Vazquez Top Tube Received (Received) Hold Urine Received (Received) Prothrombin Time 9.3sec (8.1-12.5) Prothromb Time International Ratio 0.87ratio Activated Partial Thromboplast Time 25.0sec (22.8-33.0) Red Blood Count 3.61mil/mm3 (3.90-5.20) Mean Corpuscular Volume 92.5fL (81-100) Mean Corpuscular Hemoglobin 29.4pg (27.0-35.0) Mean Corpuscular Hemoglobin Concent 31.7% (32.0-37.0) Red Cell Distribution Width 13.1% (12.3-15.4) Platelet Count 237bil/L (150-400) Neutrophils (%) (Auto) 50.8% (40-74) Lymphocytes (%) (Auto) 33.5% (14-46) Monocytes (%) (Auto) 8.1% (4-12) Eosinophils (%) (Auto) 6.3% (0-5) Basophils (%) (Auto) 1.3% (0-3) Hemoglobin A1c 4.8% (4.8-5.6) Total Bilirubin 0.2mg/dL (0.0-1.2) Aspartate Amino Transf (AST/SGOT) 10U/L (0-50) Alanine Aminotransferase (ALT/SGPT) 12U/L (0-32) Alkaline Phosphatase 47U/L (25-150) Total Protein 4.3g/dL (6.4-8.4) Albumin 2.3g/dL (3.4-5.0) Lipase 35U/L (13-60) Test 01/16/17 20:25 01/17/17 07:57 01/18/17 07:45 01/18/17 11:23 Body Fluid Source Peritoneal fluid Body Fluid Color Colorless (Clear) Body Fluid Appearance Cloudy Body Fluid WBC 4/mm3 Body Fluid RBC 12/mm3 Body Fluid Polynuclear WBCs % Body Fluid Lymphocytes % Body Fluid Monocytes % Body Fluid Eosinophils % Body Fluid Basophils % White Blood Count 4.0th/mm3 (3.8-10.1) Hemoglobin 11.2g/dL (12.0-15.6) Hematocrit 35.2% (35.0-46.0) Phosphorus Level 6.1mg/dL (2.5-4.9) Sodium Level 137mEq/L (134-144) Potassium Level 4.3mEq/L (3.5-5.2) Chloride Level 103mEq/L (97-108) Carbon Dioxide Level 22mmol/L (18-29) Blood Urea Nitrogen 40mg/dL (6-24) Creatinine 6.64mg/dL (0.57-1.00) Estimat Glomerular Filtration Rate 9mL/min (>59) Glucose Level 70mg/dL (60-99) Calcium Level 7.9mg/dL (8.5-10.1) Troponin T 0.020ug/L (0.0-0.011) Plan Impression Patient chart reviewed, patient interviewed and anesthestic plan with risks, benefits, and alternatives discussed, and informed consent obtained. ASA Physical Status: ASA3 Severe Disease Anesthetic Plan: GA Bene/Risks/Altern/Consents: Yes HP Complete Prior to Induction: Yes Rubén Huntley MD Jan 18, 2017 15:50
--- NOTE | 2017-01-18 15:51 | NUR ---
Patient had intermittent moments of nausea/vomiting/intense pain this morning, a bit better this afternoon. HIDA scan was cancelled d/t need for narcotic pain medication and necessity of narcotic abstinence for 6 hours prior. Vomited up all breakfast. Able to tolerate about half of lunch. Dr. Caro to bs to discuss diagnostic laparotomy today to assess source of pain.
--- NOTE | 2017-01-18 15:57 | CONS ---
[address] [address] CONSULTATION REPORT PATIENT: MADY LYNN : 1965 MR#: [id number] ADMIT: 01/15/2017 JOB ID: [id number] DATE OF SERVICE: 01/18/2017 SURGICAL CONSULTATION: CHIEF COMPLAINT/IDENTIFICATION: Dr. Hubbard has asked me to see this 51-year-old woman with upper abdominal pain. HISTORY OF PRESENT ILLNESS: The patient presented three days ago with a bandlike epigastric pain that was relatively new and of sudden onset. She has had some chronic GI complaints following a laparoscopic gastric bypass two years ago. Her workup has included an upper endoscopy that demonstrated no sign of a gastrogastric fistula or gastrojejunal anastomosis. Her pain has been persistent and today was noted to be in the mid epigastric and bilateral upper quadrants and increased with associated nausea and vomiting. She continues to pass gas and stool from below. The patient's only other abdominal surgery has been a peritoneal dialysis catheter which has been stable for the past year and has demonstrated no function. Peritoneal dialysis has been analyzed and has not demonstrated any evidence for a bacterial peritonitis associated with the catheter. PAST MEDICAL HISTORY: As above. Her gastric bypass was performed two years ago as she was unable to get on the kidney transplant list at her previous weight of 240 degrees. She has had a good result with a current BMI recorded at 20. The current weight here in the hospital recorded at roughly 140. MEDICATIONS: Aspirin, calcium, losartan, ondansetron, venlafaxine p.r.n., gabapentin and Percocet. SOCIAL HISTORY: , ex-smoker, negative daily alcohol. FAMILY HISTORY/REVIEW OF SYSTEMS: Per admission history and physical. PHYSICAL EXAMINATION: A slender woman in no acute distress. Vital signs are within normal limits with a pulse of 66 and a blood pressure of 118/73. She is afebrile. Her sclerae are clear. Her neck is supple. Lungs are clear. Heart sounds are regular. She has minimal tenderness in the upper abdomen, no masses, though a bit distended. Peritoneal catheter is in place. No groin hernias. Extremities are without edema. LABORATORIES: White count is normal at 4, hematocrit is 35.2. Chemistries are normal except for her BUN and creatinine. Liver function tests on admission were normal. Lipase is 61, follow up 35. IMAGING: She has had an abdominal ultrasound, a KUB and a CT angiogram. I have reviewed these films and reports. The reports are all relatively unrevealing with no evidence of gallstones or cholecystitis. It is felt that her mesenteric vessels are normal. I reviewed the films with Dr. Michelle Maria as I am concerned that there may be a mesenteric swirl distal to the origin of the SMA but she feels this is a normal variant following the gastric bypass. IMPRESSION AND PLAN: I reviewed the patient's chart including all of our imaging here, her endoscopy report and I do not see any obvious reason for her abdominal pain. Given her history of laparoscopic gastric bypass, pain with associated nausea that is out of proportion to examination. I have to be concerned about a possible internal hernia. Further studies could be obtained such as an upper GI, but at this point, I think the only way to be sure she does not have an internal hernia would be to proceed with a diagnostic laparoscopy. We discussed the possible findings of Jordan space hernia versus hernia at the jejunostomy versus if this is a retrocolic gastric bypass hernia in the mesenteric defect. I have recommended diagnostic laparoscopy within the next several hours despite the fact that she ate lunch. I think her gastric pouch should be empty in the next few hours and given the fact that her pain is worse today than it was this morning, I think it is in her best interest to take her to the OR sooner than later. I will discuss the case with anesthesia.
[2017-01-18] MEDS ORDERED: 0.9% Sodium Chloride 500 ML IV ONE (18:23)
[2017-01-18] MEDS ORDERED: Bupivacaine-MPF 0.5% 30 mL Inj INFILTRATE ONE (18:44)
[2017-01-18] MEDS ORDERED: SODIUM CHLORIDE IV SCH (18:44)
[2017-01-18] MEDS ORDERED: [UNRECOGNIZED DRUG - OTHER] IV SCH (18:44)
[2017-01-18] MEDS ORDERED: fentaNYL-PF 50 mCg/mL 2 mL Inj IVPUSH PRN (18:45)
[2017-01-18] MEDS ORDERED: Labetalol 5 mg/mL 20 mL Inj IV PRN (18:45)
[2017-01-18] MEDS ORDERED: Phenylephrine 10,000 mCg/mL Inj IVPUSH PRN (18:45)
[2017-01-18] MEDS ORDERED: EPHEDrine Sulfate 50 mg/mL Inj IVPUSH PRN (18:45)
[2017-01-18] MEDS ORDERED: Atropine 0.4 mg/mL Inj IVPUSH PRN (18:45)
[2017-01-18] MEDS ORDERED: Ondansetron 2 mg/mL 2 mL Inj IVPUSH PRN (18:45)
[2017-01-18] MEDS ORDERED: Bupivacaine Liposome 1.3% 20 mL Inj ONE (20:30)
[2017-01-18] MEDS ORDERED: Bupivacaine Liposome 1.3% 20 mL Inj INFILTRATE ONE (20:30)
--- NOTE | 2017-01-18 20:57 | PCM.SURGPO ---
Immediate Operative Note Date of Surgery: Jan 18, 2017 Pre Operative Diagnosis Abdominal pain Post Operative Diagnosis Internal hernia at jejunojenostomy Procedure 1. Diagnostic laparoscopy 2. Conversion to open for repair of internal hernia at jejunojejunostomy Surgeon and Director Of Casino [employer] Surgeon: Meng Caro MD Assistants: Jaspal Michel MD Findings 1. Kimi limb and much of the small bowel herniated through defect at the jejunojejunostomy. No ischemic bowel identified but some congested looking bowel right at the jejunojejunostomy site that improved after hernia reduction. Complications There were no periprocedural complications identified. Surgical Specimen Removed: No Specimen sent to Pathology: No Anesthetic Administered: GA Grafts, Implants: None Output, Estimated Blood Loss: 0 Blood Admin during surgery: No Jaspal Michel MD Jan 18, 2017 20:57
--- NOTE | 2017-01-18 21:15 | PCM.ANEP1 ---
Post Anesthesia PACU Phase 1 Assessment Vital Signs Vital Signs Date Time Temp Pulse Resp B/P Pulse Ox O2 Delivery O2 Flow Rate FiO2 01/18/17 21:13 79 14 113/68 96 Room Air 01/18/17 21:06 36.9 80 15 112/67 96 Room Air 01/18/17 16:54 36.9 78 16 122/74 100 Room Air 01/18/17 16:37 74 01/18/17 13:30 36.4 66 16 118/73 100 Room Air Anesthetic Administered: GA Level of Alertness: Sleepy, easy to arouse MUSA's with Equal Strength: Yes Pain: Yes Nausea or Vomiting: No CV Function & Hydration Stable: Yes Airway Device: Oxygen Delivery: Room Air Lungs: Normal Air Movement PACU Phase 2 Assessment Complications: No Follow up Care: No Patient Instructions Provided: N/A Rubén Huntley MD Jan 18, 2017 21:15
[2017-01-18] MEDS: HYDROmorphone PCA 0.2 mg/mL 30 mL Inj IV PRN (22:02)
[2017-01-18] MEDS: Ondansetron 2 mg/mL 2 mL Inj IVPUSH PRN (22:12)
[2017-01-18] MEDS: MetoCLOpramide 5 mg/mL 2 mL Inj IVPUSH PRN (23:40)
[2017-01-19] VITALS (9 sets, daily range): BP systolic 117–154; BP diastolic 67–85; PULSE 75–87; RESP 12–20; O2SAT 97–100
--- NOTE | 2017-01-19 04:13 | OP ---
[address] [address] OPERATIVE REPORT PATIENT: MADY LYNN : 1965 MR#: [id number] ADMIT: 01/15/2017 JOB ID: [id number] DATE OF SURGERY: 01/18/2017 PREOPERATIVE DIAGNOSIS(ES): 1. Abdominal pain. Possible internal hernia. 2. Status post laparoscopic gastric bypass. POSTOPERATIVE DIAGNOSIS(ES): 1. Abdominal pain. Possible internal hernia. 2. Status post laparoscopic gastric bypass. 3. Confirmed internal hernia at the jejunojejunostomy from her previous gastric bypass. SURGEON: Meng Caro MD PUBLIC HEALTH AIDE: Jaspal Michel MD PROCEDURE: Laparoscopic lysis of adhesions, conversion to open laparotomy, with repair of internal hernia. INDICATIONS: A 51-year-old woman admitted to the hospital with abdominal pain on the , with progressive increased abdominal pain out of proportion to the findings on examination. She has a history of a laparoscopic gastric bypass with good results, and is brought to the operating room for diagnosis and therapeutic intervention for possible internal hernia. FINDINGS: 1. A assembler surgical garment was medically necessary for completion of the procedure in a safe and timely fashion. 2. Initial diagnostic laparoscopy involved lysis of adhesions from the greater omentum to the anterior abdominal wall and falciform ligament. This allowed us to expose the infracolic small bowel. 3. During the laparoscopic portion of the procedure, it was clear that the patient had an internal hernia. However, despite attempts over a reasonable length of time at reduction of the internal hernia, we were unable to completely understand the anatomy nor reduce the internal hernia, and therefore, converted to open surgery. 4. At open surgery, we found that the patient had a moderate-sized defect at the mesenteric closure of the jejunal jejunostomy that had allowed both the majority of small intestine to herniate from right to left as well as for the jejunojejunostomy to herniate through as well. All bowel was viable. DESCRIPTION OF PROCEDURE: The patient was brought to the operating room. Surgical time-out was performed. SCOAP protocol was followed. As we anticipated a clean case, I elected not to give her preoperative antibiotics. We would later give her Ancef upon conversion to open surgery. We began by placing a Veress needle in the left upper quadrant and obtaining pneumoperitoneum. We began by placing a Veress needle in the right upper quadrant and obtaining pneumoperitoneum. We then placed an optical trocar in the left upper quadrant, removed our Veress needle after confirming there had been no injury from the Veress needle. Explored the abdomen. We placed three additional laparoscopic ports, took down the adhesions of the greater omentum to the falciform ligament and anterior abdominal wall. We retracted the transverse colon cephalad. We could see that the patient had a retrocolic gastrojejunostomy. There was some discoloration of the proximal jejunum from near the ligament of Treitz, but it was unclear whether this represented changes secondary to peritoneal dialysis. We now spent an hour interrogating the small intestine. We began by identifying the Kimi limb coming through the infracolic mesocolon. There was no hernia there. We identified the ligament of Treitz. However, it appeared that the patient did have a twist in the bowel, and we initially tried to pass bowel through the apparent twist near the jejunojejunostomy without success at decompressing the loop in the bowel from the internal hernia. We tried a variety of positions and techniques including beginning at the terminal ileum and going distal to proximal, beginning at the proximal Kimi limb and going distal, and spent at least 30 minutes or more attempting to decompress what was clearly an internal hernia. At this point, we gave ourselves a time limit to complete the operation laparoscopically, but would convert to open when that time was reached, and we felt that the likelihood of resolving this laparoscopically was outweighed by the risks to the patient, and converted to open surgery. We made an upper midline incision and entered the abdomen. Retractors were placed. We eviscerated the small bowel. At this point, it was still clear that all the small bowel was viable, that there had been no small bowel injury or enterotomy. We were then able to begin at the ileocecal valve, as we had attempted laparoscopically and delivered what was roughly 90% of the distal small bowel that had herniated through some sort of internal hernia by the jejunojejunostomy. We then also figured out that the biliopancreatic limb had herniated also, twisting itself 180 degrees through this defect. We were able to do this and, at this point, all the intestine laid out nicely. With the retrocolic Kimi limb traveling up lateral and to the left of the ligament of Treitz and lying flat, we were able to identify what was approximately a 6 cm defect at the jejunojejunostomy that appeared to be where the mesenteric closure had been. I suspect that the mesenteric closure had broken down a bit and had initially been a smaller defect that had worked its way out to a larger defect, with the small bowel herniating through this. We now closed this with running 2-0 silk. At this point, we reinspected the small intestine. There was no leak. Her PD catheter was placed down the pelvis. We closed the fascia with running 0 PDS and we then closed the skin in all the laparoscopic port sites with nylon, using a running locking nylon of the midline incision and interrupted horizontal mattress sutures for the 5 mm port sites. Dressings were applied. At the time of this dictation, the patient is awakening slowly from anesthesia. KEN
[2017-01-19] MEDS: Ondansetron 2 mg/mL 2 mL Inj IVPUSH PRN ×2 (04:20→19:07)
--- NOTE | 2017-01-19 06:21 | NUR ---
Post surgery/pain/nausea Patient returned from OR at 2150 last night after an internal hernia repair. 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 Patient had zofran and reglan for nausea. Voided x1 since surgery. PD held last night due to post op status, plan for HD today per patient.
--- NOTE | 2017-01-19 06:33 | PCM.PNSURG ---
Subjective Date of Service: Jan 19, 2017 Date of Service: Jan 19, 2017 Visit Information: Reason for Visit Abdominal Pain Surgery/Surgery Date Post-Op Day # 1 Date of Admission: Jan 15, 2017 at 19:35 Hospital Day # 4 Subjective: Midline incisional pain is uncomfortable but feels like the RN NEW GRADUATE is really helpful. No gas or BM. No N/V. Very happy her problem was addressed. No acute events post operatively. Objective Vital Sign- Last 8 Hours Date Time Temp Pulse Resp B/P Pulse Ox O2 Delivery O2 Flow Rate FiO2 01/19/17 05:37 14 97 01/19/17 04:19 36.5 79 20 148/67 100 Room Air 01/19/17 00:30 75 14 117/67 97 Room Air 01/19/17 00:00 12 98 01/18/17 23:50 74 01/18/17 23:30 75 14 119/78 97 Room Air 01/18/17 23:00 36.5 78 16 135/72 98 Room Air 01/18/17 22:50 14 97 01/18/17 22:30 36.3 79 14 138/76 95 Room Air Intake and Output- Last 8 Hour 01/19/17 Cumulative From/Thru 07:00 01/15/17 15:13 - 01/19/17 05:42 Intake Total 156 ml 4307 ml Output Total 2881.00 ml Balance 156 ml 1426.00 ml Intake Oral 120 ml 1038 ml IV Total 36 ml 3209 ml Tube Irrigant 60 ml Output Ultrafiltrate 2881.00 ml Estimated Blood Loss 0 ml # Voids 1 15 # Bowel Movements 1 General: Alert, Oriented X3, Cooperative, No Acute Distress Lungs: Clear to Auscultation, Normal Air Movement Heart: Regular Rate/Rhythm, Normal S1 Abdomen: Appropriately tender, Non-distended, Other (Peritoneal dialysis catheter well secured. Dressings are c/d/i, midline dressing with light streak of blood.) Neuro: Grossly Neurologically Intact Catheters: None Result Diagram: 01/17/17 0757 01/18/17 0745 Additional Information: Left brachiocephalic fistula with palpable thrill and healthy appearing overlying skin, accessed 1x per month without issues. Assessment & Plan Impression 51 yo F with ESRD s/p laparoscopic bria-en-y gastric bypass with abdominal pain now s/p diagnostic laparoscopy, lysis of adhesions and conversion to open for reduction of internal hernia through jejunojejunostomy mesenteric defect on 01/19. Problems: Plan - Regular diet, bowel regimen (miralax daily) - Pain control: Continue HM RN NEW GRADUATE, tylenol, transition to oral pain medications when tolerating diet - Wound: Surgical team to remove dressings tomorrow. Nylon sutures used, would plan to do HD, no PD, we will remove sutures at 7 days. - ESRD: Would recommend avoiding peritoneal dialysis for 2 weeks to allow for appropriate wound healing and reduce risk of leak or SBP. - Heme/ID: No antibiotics needed - General Surgery will continue to follow and make recommendations regarding wound management and pain control as well as assist with decision making regarding risk of PD during initial post operative recovery. VTE Prophylaxis: SCDs Resuscitation Status: CPR: Attempt Resuscitation Jaspal Michel MD Jan 19, 2017 06:33
[2017-01-19 07:28] LABS: Mean Corpuscular Hemoglobin 29.6 pg (27.0-35.0); Mean Corpuscular Volume 94.2 fL (81-100)
[2017-01-19] MEDS: Sucralfate 100 mg/mL 10 mL Suspension PO SCH ×3 (08:01→17:59)
[2017-01-19] MEDS: MetoCLOpramide 5 mg/mL 2 mL Inj IVPUSH PRN ×2 (08:02→17:59)
--- NOTE | 2017-01-19 10:51 | PCM.PNMED ---
Subjective Date of Service Jan 19, 2017 Subjective GASTROENTEROLOGY PROGRESS NOTE: Attending Physician: Meng Hernandez MD Resident Physician: Sadia Trinidad DO Due to severe and persistent abdominal pain with concern for peritonitis General Surgery was consulted on 01/18. Because the patient's abdominal pain was out of proportion to imaging and physical exam findings, she was taken to the operating room for exploratory laparotomy for possible internal hernia related to prior gastric bypass hernia. Now postoperative day #1 following laparoscopic lysis of adhesions with conversion to open laparotomy and hernia repair. Patient is resting comfortably this morning and reports incisional pain but that the abdominal pain she was having prior to surgery has improved. She states that she attempted to eat this morning but was not able to due to pain and nausea. She denies fever, chills, chest pain, shortness of breath, bloody or dark colored stool. Exam Vital Signs Vital Sign - Last Date Time Temp Pulse Resp B/P Pulse Ox O2 Delivery O2 Flow Rate FiO2 01/19/17 05:37 14 97 01/19/17 04:19 36.5 79 148/67 Room Air Intake and Output 01/18/17 01/18/17 01/19/17 Cumulative From/Thru 15:00 23:00 07:00 01/15/17 15:13 - 01/19/17 05:42 Intake Total 625 ml 156 ml 4307 ml Output Total 0 ml 2881.00 ml Balance 625 ml 156 ml 1426.00 ml Intake Oral 200 ml 120 ml 1038 ml IV Total 425 ml 36 ml 3209 ml Tube Irrigant 60 ml Output Ultrafiltrate 2881.00 ml Estimated Blood Loss 0 ml 0 ml # Voids 4 1 15 # Bowel Movements 1 Exam General: Ill-appearing woman resting comfortably in no acute distress. Communicating appropriately HEENT: Atraumatic, no scleral icterus. Mucous membranes moist/pink Lungs: Clear to auscultation Cardiac: Regular rate and rhythm. Normal S1, S2. No murmurs Abdomen: Soft, non-distended, appropriately tender. Incision dressings notable for a small amt of bloody drainage otherwise no erythema, purulence or drainage noted. No ascites. Peritoneal dialysis catheter without surrounding erythema or purulence. Extremities: Warm, well-perfused, no edema Neurologic: AOx3, no focal deficit. Normal speech . IVs and Medications Medications Reviewed: Medications were reviewed in detail Lab and Diagnostics Laboratory Tests Test 01/18/17 11:23 01/19/17 07:18 Troponin T 0.020ug/L (0.0-0.011) White Blood Count 8.9th/mm3 (3.8-10.1) Red Blood Count 3.79mil/mm3 (3.90-5.20) Hemoglobin 11.2g/dL (12.0-15.6) Hematocrit 35.7% (35.0-46.0) Mean Corpuscular Volume 94.2fL (81-100) Mean Corpuscular Hemoglobin 29.6pg (27.0-35.0) Mean Corpuscular Hemoglobin Concent 31.4% (32.0-37.0) Red Cell Distribution Width 13.5% (12.3-15.4) Platelet Count 245bil/L (150-400) Sodium Level 138mEq/L (134-144) Potassium Level 5.2mEq/L (3.5-5.2) Chloride Level 103mEq/L (97-108) Carbon Dioxide Level 18mmol/L (18-29) Blood Urea Nitrogen 47mg/dL (6-24) Creatinine 7.53mg/dL (0.57-1.00) Estimat Glomerular Filtration Rate 8mL/min (>59) Glucose Level 131mg/dL (60-99) Calcium Level 8.0mg/dL (8.5-10.1) Total Bilirubin 0.2mg/dL (0.0-1.2) Aspartate Amino Transf (AST/SGOT) 9U/L (0-50) Alanine Aminotransferase (ALT/SGPT) 9U/L (0-32) Alkaline Phosphatase 51U/L (25-150) Total Protein 4.7g/dL (6.4-8.4) Albumin 2.4g/dL (3.4-5.0) Microbiology 01/16/17 Blood Culture - No growth at 2 days 01/16/17 Peritoneal fluid- Gram stain w/rare polys, no organisms; Aerobic cult- no growth at 48hrs; Anaerobic cult- no anaerobes 01/17/17 Stool Occult Blood (TRISTAN) - Positive Result Diagram: 01/19/1718 01/19/1718 X-Rays, CTs and MRIs 01/15/17 - CT KUB IMPRESSION: 1. In the absence of contrast, no acute findings to explain epigastric and periumbilical abdominal pain. 2. Trace free abdominal and pelvic fluid, expected with peritoneal dialysis catheter. Approved by: Daniel Matias M.D. on 01/15/2017 at 16:54 01/15/17 - US ABDOMEN, LIMITED IMPRESSION: No sonographic evidence for gallstones or acute cholecystitis. Approved by: Daniel Matias M.D. on 01/15/2017 at 20:23 01/17/17 - ANGIO ABD/PELVIS W/CON IMPRESSION: 1. Aorta shows no aneurysm or dissection. Major branches are patent. 2. Moderate amount of ascites with edema throughout the subcutaneous tissues. Dialysis catheter in place. 3. Bilateral renal cortical atrophy. 4. Uterine IUD present. Approved by: Eligio Tovar M.D. on 01/17/2017 at 15:38 . Assessment & Plan A 51-year-old, female with a history of end-stage renal disease, on peritoneal dialysis 2011, diabetes type 2, hypertension status post gastric bypass in 2012, tubal ligation, throat abscess, carotid artery stenosis, chronic kidney disease stage 4 presents here for epigastric pain. The differential diagnosis includes anastomotic ulcer versus uncontrolled gastroesophageal reflux disease versus esophagitis versus duodenitis. Persistent abdominal pain concerning for SBP in a patient with a hx of gastric bypass and ESRD on daily peritoneal dialysis since 2011. -Despite lack of imaging evidence (EGD on 01/16/17 showed a Kimi-en-Y gastric bypass but was otherwise normal, CT KUB with no acute findings to explain abdominal pain and abdominal US was without evidence of gallstones or acute cholecystitis) and no clinical signs of infection; patient's abdominal pain continued to progress. Due to high suspicion for acute bacterial peritonitis General Surgery consulted on 01/18 and patient taken to operating room for exploratory laparotomy for possible internal hernia related to prior gastric bypass. She is now postoperative day #1 following laparoscopic lysis of adhesions with conversion to open laparotomy and hernia repair. RECOMMENDATIONS: -Continue antireflux medication and GERD diet. Await biopsy results -Postop care and diet per Surgery -IV antibiotics per Hospitalist/Surgery -GI will sign off at this time but remains available if needed Thank you for involving us in the care of this interesting patient. Additional problems managed by primary Hospitalist and/or Nephrology: -End stage renal disease on peritoneal dialysis daily -Hypocalcemia -Mildly elevated lipase -Hypoglycemia -Hx of CVA -Hx peritonitis -Hypertension chronic -Diabetes mellitus -Chronic pain . VTE Prophylaxis: SCDs Resuscitation Status: CPR: Attempt Resuscitation Sadia Trinidad DO Jan 19, 2017 09:33
--- NOTE | 2017-01-19 11:40 | PCM.PNNEPH ---
Subjective Date of Service Jan 19, 2017 Subjective She was evaluated by Dr. Caro, internal hernia was concerned. She underwent diagnostic laparoscopy, lysis of adhesions and conversion to open for reduction of internal hernia through jejunojejunostomy mesenteric defect on 01/19/17. 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 Exam Vital Signs Vital Sign - Last Date Time Temp Pulse Resp B/P Pulse Ox O2 Delivery O2 Flow Rate FiO2 01/19/17 09:48 75 01/19/17 05:37 14 97 01/19/17 04:19 36.5 148/67 Room Air Intake and Output 01/18/17 01/18/17 01/19/17 Cumulative From/Thru 15:00 23:00 07:00 01/15/17 15:13 - 01/19/17 05:42 Intake Total 625 ml 156 ml 4307 ml Output Total 0 ml 2881.00 ml Balance 625 ml 156 ml 1426.00 ml Intake Oral 200 ml 120 ml 1038 ml IV Total 425 ml 36 ml 3209 ml Tube Irrigant 60 ml Output Ultrafiltrate 2881.00 ml Estimated Blood Loss 0 ml 0 ml # Voids 4 1 15 # Bowel Movements 1 Exam General appearance: Awake, alert, oriented x3. Not in acute distress. HEENT: Mild pallor, no jaundice. No JVD. No lymphadenopathy. No thyroid enlargement. Heart: Regular rhythm. Normal S1, S2. Soft systolic murmur noted. No rubs, no gallops. Lungs: Clear to auscultation bilaterally. No wheezing. No rhonchi. Abdomen: Soft, decreased bowel sounds. Dressing at the midline with small blood. Peritoneal dialysis catheter in place. Nondistended. No hepatosplenomegaly. Tenderness over surgical wound. Extremities: No edema, cyanosis, or clubbing of fingers. Lab and Diagnostics Result Diagram: 01/19/17 0718 01/19/17 0718 X-Rays, CTs and MRIs 01/15/17 - CT KUB IMPRESSION: 1. In the absence of contrast, no acute findings to explain epigastric and periumbilical abdominal pain. 2. Trace free abdominal and pelvic fluid, expected with peritoneal dialysis catheter. Approved by: Daniel Matias M.D. on 01/15/2017 at 16:54 01/15/17 - US ABDOMEN, LIMITED IMPRESSION: No sonographic evidence for gallstones or acute cholecystitis. Approved by: Daniel Matias M.D. on 01/15/2017 at 20:23 01/17/17 - ANGIO ABD/PELVIS W/CON IMPRESSION: 1. Aorta shows no aneurysm or dissection. Major branches are patent. 2. Moderate amount of ascites with edema throughout the subcutaneous tissues. Dialysis catheter in place. 3. Bilateral renal cortical atrophy. 4. Uterine IUD present. Approved by: Eligio Tovar M.D. on 01/17/2017 at 15:38 . Plan Impression 1. Persistent nausea and vomiting and epigastric pain secondary to internal hernia. s/p diagnostic laparoscopy, lysis of adhesions and conversion to open for reduction of internal hernia through jejunojejunostomy mesenteric defect on 01/19. 2. End-stage renal disease, on peritoneal dialysis. No evidence of peritonitis. 3. Hypoglycemia, resolved. 4. History of obesity, status post gastric bypass in 2012. 5. History of type 2 diabetes, not requiring any hypoglycemic agents. 6. Hypertension with hypertensive nephrosclerosis. 7. Renal osteodystrophy. 8. Anemia of chronic kidney disease. PLAN: 1. Hold peritoneal dialysis at least for a couple weeks. 2. Start hemodialysis today for 3 hours without fluid removal. Darryl Maurice MD Jan 19, 2017 11:40
--- NOTE | 2017-01-19 15:03 | PCM.PNMED ---
Subjective Date of Service Jan 19, 2017 Subjective Patient is resting in bed this morning. Exam Vital Signs Vital Sign - Last Date Time Temp Pulse Resp B/P Pulse Ox O2 Delivery O2 Flow Rate FiO2 01/19/17 09:48 75 01/19/17 05:37 14 97 01/19/17 04:19 36.5 148/67 Room Air Intake and Output 01/18/17 01/18/17 01/19/17 Cumulative From/Thru 15:00 23:00 07:00 01/15/17 15:13 - 01/19/17 05:42 Intake Total 625 ml 156 ml 4307 ml Output Total 0 ml 2881.00 ml Balance 625 ml 156 ml 1426.00 ml Intake Oral 200 ml 120 ml 1038 ml IV Total 425 ml 36 ml 3209 ml Tube Irrigant 60 ml Output Ultrafiltrate 2881.00 ml Estimated Blood Loss 0 ml 0 ml # Voids 4 1 15 # Bowel Movements 1 Exam Constitutional: Middle-aged female in no acute distress Head: Normocephalic atraumatic Chest: Clear to auscultation Cor: Regular rate and rhythm S1-S2 without murmur Abdomen: Soft mild diffuse tenderness no rebound no guarding Extremities: No pedal edema Psych: Mood and affect appropriate Neuro: Alert and oriented 3, motor strength is intact bilaterally Lab and Diagnostics Laboratory Tests 72 Hours Test 01/16/17 20:25 01/17/17 07:57 01/18/17 07:45 01/18/17 11:23 Body Fluid Source Peritoneal fluid Body Fluid Color Colorless (Clear) Body Fluid Appearance Cloudy Body Fluid WBC 4/mm3 Body Fluid RBC 12/mm3 Body Fluid Polynuclear WBCs % Body Fluid Lymphocytes % Body Fluid Monocytes % Body Fluid Eosinophils % Body Fluid Basophils % White Blood Count 4.0th/mm3 (3.8-10.1) Hemoglobin 11.2g/dL (12.0-15.6) Hematocrit 35.2% (35.0-46.0) Sodium Level 138mEq/L (134-144) 137mEq/L (134-144) Potassium Level 4.9mEq/L (3.5-5.2) 4.3mEq/L (3.5-5.2) Chloride Level 105mEq/L (97-108) 103mEq/L (97-108) Carbon Dioxide Level 20mmol/L (18-29) 22mmol/L (18-29) Blood Urea Nitrogen 37mg/dL (6-24) 40mg/dL (6-24) Creatinine 6.06mg/dL (0.57-1.00) 6.64mg/dL (0.57-1.00) Estimat Glomerular Filtration Rate 11mL/min (>59) 9mL/min (>59) Glucose Level 77mg/dL (60-99) 70mg/dL (60-99) Calcium Level 8.2mg/dL (8.5-10.1) 7.9mg/dL (8.5-10.1) Phosphorus Level 6.1mg/dL (2.5-4.9) Troponin T 0.021ug/L (0.0-0.011) 0.020ug/L (0.0-0.011) Test 01/19/17 07:18 White Blood Count 8.9th/mm3 (3.8-10.1) Red Blood Count 3.79mil/mm3 (3.90-5.20) Hemoglobin 11.2g/dL (12.0-15.6) Hematocrit 35.7% (35.0-46.0) Mean Corpuscular Volume 94.2fL (81-100) Mean Corpuscular Hemoglobin 29.6pg (27.0-35.0) Mean Corpuscular Hemoglobin Concent 31.4% (32.0-37.0) Red Cell Distribution Width 13.5% (12.3-15.4) Platelet Count 245bil/L (150-400) Sodium Level 138mEq/L (134-144) Potassium Level 5.2mEq/L (3.5-5.2) Chloride Level 103mEq/L (97-108) Carbon Dioxide Level 18mmol/L (18-29) Blood Urea Nitrogen 47mg/dL (6-24) Creatinine 7.53mg/dL (0.57-1.00) Estimat Glomerular Filtration Rate 8mL/min (>59) Glucose Level 131mg/dL (60-99) Calcium Level 8.0mg/dL (8.5-10.1) Total Bilirubin 0.2mg/dL (0.0-1.2) Aspartate Amino Transf (AST/SGOT) 9U/L (0-50) Alanine Aminotransferase (ALT/SGPT) 9U/L (0-32) Alkaline Phosphatase 51U/L (25-150) Total Protein 4.7g/dL (6.4-8.4) Albumin 2.4g/dL (3.4-5.0) Result Diagram: 01/19/17 0718 01/19/17 0718 X-Rays, CTs and MRIs 01/15/17 - CT KUB IMPRESSION: 1. In the absence of contrast, no acute findings to explain epigastric and periumbilical abdominal pain. 2. Trace free abdominal and pelvic fluid, expected with peritoneal dialysis catheter. Approved by: Daniel Matias M.D. on 01/15/2017 at 16:54 01/15/17 - US ABDOMEN, LIMITED IMPRESSION: No sonographic evidence for gallstones or acute cholecystitis. Approved by: Daniel Matias M.D. on 01/15/2017 at 20:23 01/17/17 - ANGIO ABD/PELVIS W/CON IMPRESSION: 1. Aorta shows no aneurysm or dissection. Major branches are patent. 2. Moderate amount of ascites with edema throughout the subcutaneous tissues. Dialysis catheter in place. 3. Bilateral renal cortical atrophy. 4. Uterine IUD present. Approved by: Eligio Tovar M.D. on 01/17/2017 at 15:38 . Assessment & Plan This is a pleasant 51-year-old female history of end-stage renal disease on daily peritoneal dialysis, hypertension, diabetes, history of CVA gastric bypass in 2012 with a prior history of peritonitis from peritoneal dialysis catheter who presented to the ED with acute onset intermittent bandlike upper abdominal and epigastric pain. Associated with pink blood-tinged vomitus. Patient was admitted for possible GI bleed and acute bacterial peritonitis. # Acute abdominal pain, POA active - Perforated viscus is difficult to rule out given history of abdominal peritoneal dialysis. - Admission Vital signs: Showed temperature 36.5, pulse 69, respiratory rate 18 , BP 185/94 map 124, O2 99% on room air. - She was seen by Dr. Hamilton in December of this year who planned on doing EGD at that time, secondary to intractable nausea and vomiting. - Suspected acute GI bleed secondary to history of ulcers and NSAID use. GI was consulted. EGD was done on 910 AM no evidence of ulcers, d/c protonix drip. Famotidine 10 mg PO BID. - Admission Hemogram showed: CBC is 5.1, PMNs 61.9% without evidence of bands, H /H was 11.5/35.6, platelets were normal at 275, patient did have elevated eosinophils 5.7 - Admission CT KUB showed: In the absence of contrast, no acute findings to explain epigastric and periumbilical abdominal pain. Trace free abdominal and pelvic fluid, expected with peritoneal dialysis catheter. - Abdominal ultrasound to rule out biliary etiologies: No cholecystitis -- 01/17 Peritonial fluid cultures from this morning show low concern for infection. Peritoneal fluid has white cells 4 colorless, cloudy. Gram stain and anaerobic cultures are ngtd -- 01/17 Discussed the possibility of diabetic gastroparesis with GI, Dr. Stephen sees no concern for that because she is status post bypass, and she does not have much of her stomach left. -- 01/17 Because patient has risk factors of atherosclerosis, diabetes she is at risk for mesenteric ischemia. Discussed a CTA study to rule this out with Dr. Baker, she approves. CTA abdominopelvic was ordered -- Treat possible gastroparesis with small PO dose reglan per Dr. Baker, started her on reglan poo discontineud on 01/18 as she worsened -- 01/17 CTA abd/pelvic showed no concern for mesenteric ischemia -- Dr. Hernandez has ordered a HIDA, was cancelled due to pain DATE OF SURGERY: 01/18/2017 PREOPERATIVE DIAGNOSIS(ES): 1. Abdominal pain. Possible internal hernia. 2. Status post laparoscopic gastric bypass. POSTOPERATIVE DIAGNOSIS(ES): 1. Abdominal pain. Possible internal hernia. 2. Status post laparoscopic gastric bypass. 3. Confirmed internal hernia at the jejunojejunostomy from her previous gastric bypass. SURGEON: Meng Caro MD F[employer] MACH[employer]ERY MECHANIC: Jaspal Michel MD PROCEDURE: Laparoscopic lysis of adhesions, conversion to open laparotomy, with repair of internal hernia. # End stage renal disease on peritoneal dialysis daily, POA - Patient gets daily peritoneal dialysis since 2011, with PD catheter placed in the right lower quadrant. She has functional left upper extremity fistula although this is not utilized. - Patient reports 2 days of taking NSAID Aleve for her abdominal pain. - High suspicion for acute bacterial peritonitis despite normal white blood cell count remains. Peritoneal dialysis fluid was sent for cell count, differential, Gram stain and culture per nephrology recommendation. - At the time of her admission Nephrology Dr. Powers to be notified by phone of the results prior to starting antibiotics. - Patient's baseline creatinine is 6.7 in December 2016, currently creatinine of 6.5. - Admission Chemistry panel for: A BUN of 37, creatinine 6.30 in a patient with a baseline creatinine of 6.7 back in December. Lactic acid was 1.2, calcium was low at 7.8 - KUB CT showed no peritoneal fluid, the abdomen was not tapped. -- Nephro is consulted and started hemodialysis on 01/16 evening #Chronic back pain with opioid dependence, present on admission -We will continue current outpatient regimen VTE Prophylaxis: SCDs Resuscitation Status: CPR: Attempt Resuscitation Time spent 20 minute Yumiko Benson MD Jan 19, 2017 15:03
--- NOTE | 2017-01-19 15:14 | NUR ---
dialysis note pt presented in stable condition for 1st HD treatment due to abd surgery last night, PD on hold c/o pain to abd/surgical incision, pt has morphine pump mature L upper arm fistula access washed with soap/water, cleaned with chloraprep, bruit/thrill present ordered BFR 300, used 16g needles x1 attempt per site, both lines flush and aspirate with ease, pt tolerated well treatment started without difficulty Addendum: 01/19/17 at 1752 by VÍCTOR FLETCHER RN total treatment time 3.0 hours total net removed 0ml treatment end, blood returned, needles removed, pt held x10 minutes per site, bleeding stopped, tape and gauze applied treatment tolerated well Report given to PEDRITO pt discharged in stable condition See DTR for complete dialysis record
--- NOTE | 2017-01-19 16:28 | NUR ---
Pain/Ambulation Pt has been hesitant to use [employer] r/t sleepiness, encouraged to use when in pain and pt has been able to rest well pain free today. Pt has been oob a few times to brp and has jaswant well. pt having dialysis now. Overall pt is improving well.
--- NOTE | 2017-01-19 19:10 | PATH ---
SURGICAL PATHOLOGY Attending Physician:Meng Hernandez MD CASE STATUS: Signed Out PATIENT NAME: MADY LYNN PID: [id number] : 1965 DATE COLLECTED:01/16/2017 00:00 SPECIMEN: Gastric, Biopsy CLINICAL HISTORY: 1). GASTRIC POUCH BIOPSY (RULE OUT H.PYLORI) FINAL DIAGNOSIS: Gastric Pouch, Biopsy: Gastric body mucosa with chronic active Helicobacter gastritis. Rare Helicobacter organisms highlighted on immunohistochemistry. Negative for intestinal metaplasia, dysplasia, or malignancy. ICD10: B96.81 GROSS DESCRIPTION: The specimen is received in one formalin filled container labeled with the patient's name, sublabeled "gastric pouch" consists of 2 portions of tissue which aggregate to 3 x 0.2 x 0.2 CM. The specimen is entirely submitted in one cassette. 01/17/2017DC MICRO DESCRIPTION: An immunohistochemical stain was performed to evaluate for Helicobacter organisms and is positive for rare organisms. A control stain showed appropriate reactivity. * This test was developed and its performance characteristics determined by [facility]. It has not been cleared or approved by the U.S. Food and Drug Administration. The FDA has determined that such clearance or approval is not necessary. This test is used for clinical purposes. It should not be regarded as investigational or for research. ICD-9 CODES: CPT CODES: 1: 41883, 05956 Electronically Signed Out Matteo Bolivar MD, Ph.D. Formerly [facility] Pathology [facility] [address], [place] [address] Technical component performed at [facility], [facility] [address], [place], [address]
[2017-01-19] MEDS: HYDROmorphone PCA 0.2 mg/mL 30 mL Inj IV PRN (20:11)
[2017-01-20] VITALS (9 sets, daily range): BP systolic 132–168; BP diastolic 75–105; PULSE 73–87; RESP 14–18; O2SAT 98–99
[2017-01-20] MEDS: Ondansetron 2 mg/mL 2 mL Inj IVPUSH PRN ×4 (01:01→22:00)
--- NOTE | 2017-01-20 05:54 | NUR ---
Shift Note assumed pt care at 1900, pt with nausea unable to tolerate general diet despite administration of antiemetic before meal, hypoactive/almost absent bowel tones on all quads,not passing any flatus per pt report, encouraged to ambulate when awake. Pain Pt continues with [employer] dilaudid, adequate pain mgt per pt report, call light in reach at all times.
--- NOTE | 2017-01-20 08:21 | PCM.PNMED ---
Subjective Date of Service Jan 20, 2017 Subjective GASTROENTEROLOGY PROGRESS NOTE: Attending Physician: Meng Hernandez MD Resident Physician: Sadia Trinidad DO No acute events overnight. Patient is smiling and in good spirits this morning. She states that her abdominal pain has improved significantly and is well controlled with current pain regimen. She reports post-op pain but overall states that she still has some nausea but overall is feeling much better. She is tolerating liquid diet denies vomiting, fever, chills, shortness of breath, diarrhea, and bloody or dark stool. Exam Vital Signs Vital Sign - Last Date Time Temp Pulse Resp B/P Pulse Ox O2 Delivery O2 Flow Rate FiO2 01/20/17 05:55 80 01/20/17 05:46 17 167/96 99 Room Air 01/19/17 20:27 36.9 Intake and Output 01/19/17 01/19/17 01/20/17 Cumulative From/Thru 15:00 23:00 07:00 01/15/17 15:13 - 01/20/17 05:46 Intake Total 100 ml 4407 ml Output Total 0 ml 150 ml 3031.00 ml Balance 0 ml -50 ml 1376.00 ml Intake Oral 100 ml 1138 ml IV Total 3209 ml Tube Irrigant 60 ml Output Urine Total 150 ml 150 ml Ultrafiltrate 0 ml 2881.00 ml Estimated Blood Loss 0 ml # Voids 15 # Bowel Movements 1 Exam General: Middle-aged female resting comfortably in no acute distress. Communicating appropriately HEENT: Atraumatic, no scleral icterus. Mucous membranes moist/pink Lungs: Clear to auscultation with no wheezing or crackles Cardiac: Regular rate and rhythm. Normal S1, S2. No murmurs Abdomen: Soft, non-distended, appropriately tender. Incision sites w/dressing C/ D/I without erythema, purulence or drainage noted. No ascites. Peritoneal dialysis catheter without surrounding erythema or purulence. Extremities: Warm, well-perfused, no edema Neurologic: AOx3, no focal deficit. Normal speech . IVs and Medications Medications Reviewed: Medications were reviewed in detail Lab and Diagnostics Laboratory Tests 72 Hours Test 01/18/17 07:45 01/18/17 11:23 01/19/17 07:18 Sodium Level 137mEq/L (134-144) 138mEq/L (134-144) Potassium Level 4.3mEq/L (3.5-5.2) 5.2mEq/L (3.5-5.2) Chloride Level 103mEq/L (97-108) 103mEq/L (97-108) Carbon Dioxide Level 22mmol/L (18-29) 18mmol/L (18-29) Blood Urea Nitrogen 40mg/dL (6-24) 47mg/dL (6-24) Creatinine 6.64mg/dL (0.57-1.00) 7.53mg/dL (0.57-1.00) Estimat Glomerular Filtration Rate 9mL/min (>59) 8mL/min (>59) Glucose Level 70mg/dL (60-99) 131mg/dL (60-99) Calcium Level 7.9mg/dL (8.5-10.1) 8.0mg/dL (8.5-10.1) Troponin T 0.021ug/L (0.0-0.011) 0.020ug/L (0.0-0.011) White Blood Count 8.9th/mm3 (3.8-10.1) Red Blood Count 3.79mil/mm3 (3.90-5.20) Hemoglobin 11.2g/dL (12.0-15.6) Hematocrit 35.7% (35.0-46.0) Mean Corpuscular Volume 94.2fL (81-100) Mean Corpuscular Hemoglobin 29.6pg (27.0-35.0) Mean Corpuscular Hemoglobin Concent 31.4% (32.0-37.0) Red Cell Distribution Width 13.5% (12.3-15.4) Platelet Count 245bil/L (150-400) Total Bilirubin 0.2mg/dL (0.0-1.2) Aspartate Amino Transf (AST/SGOT) 9U/L (0-50) Alanine Aminotransferase (ALT/SGPT) 9U/L (0-32) Alkaline Phosphatase 51U/L (25-150) Total Protein 4.7g/dL (6.4-8.4) Albumin 2.4g/dL (3.4-5.0) Microbiology 01/16/17 Blood Culture - No growth at 2 days 01/16/17 Peritoneal fluid- Gram stain w/rare polys, no organisms; Aerobic cult- no growth at 48hrs; Anaerobic cult- no anaerobes 01/17/17 Stool Occult Blood (TRISTAN) - Positive Result Diagram: 01/19/17 0718 01/19/17 0718 X-Rays, CTs and MRIs 01/15/17 - CT KUB IMPRESSION: 1. In the absence of contrast, no acute findings to explain epigastric and periumbilical abdominal pain. 2. Trace free abdominal and pelvic fluid, expected with peritoneal dialysis catheter. Approved by: Daniel Matias M.D. on 01/15/2017 at 16:54 01/15/17 - US ABDOMEN, LIMITED IMPRESSION: No sonographic evidence for gallstones or acute cholecystitis. Approved by: Daniel Matias M.D. on 01/15/2017 at 20:23 01/17/17 - ANGIO ABD/PELVIS W/CON IMPRESSION: 1. Aorta shows no aneurysm or dissection. Major branches are patent. 2. Moderate amount of ascites with edema throughout the subcutaneous tissues. Dialysis catheter in place. 3. Bilateral renal cortical atrophy. 4. Uterine IUD present. Approved by: Eligio Tovar M.D. on 01/17/2017 at 15:38 . Additional Diagnostics SURGICAL PATHOLOGY Attending Physician:Meng Hernandez MD DATE COLLECTED:01/16/2017 SPECIMEN: Gastric, Biopsy CLINICAL HISTORY: 1). GASTRIC POUCH BIOPSY (RULE OUT H.PYLORI) FINAL DIAGNOSIS: Gastric Pouch, Biopsy: Gastric body mucosa with chronic active Helicobacter gastritis. Rare Helicobacter organisms highlighted on immunohistochemistry. Negative for intestinal metaplasia, dysplasia, or malignancy. GROSS DESCRIPTION: The specimen is received in one formalin filled container labeled with the patient's name, sublabeled "gastric pouch" consists of 2 portions of tissue which aggregate to 3 x 0.2 x 0.2 CM. The specimen is entirely submitted in one cassette. 01/17/2017DC MICRO DESCRIPTION: An immunohistochemical stain was performed to evaluate for Helicobacter organisms and is positive for rare organisms. A control stain showed appropriate reactivity. Matteo Bolivar MD, Ph.D. . Assessment & Plan A 51-year-old, female with a history of end-stage renal disease, on peritoneal dialysis 2011, diabetes type 2, hypertension status post gastric bypass in 2012, tubal ligation, throat abscess, carotid artery stenosis, chronic kidney disease stage 4 presents here for epigastric pain. The differential diagnosis includes anastomotic ulcer versus uncontrolled gastroesophageal reflux disease versus esophagitis versus duodenitis. Persistent abdominal pain concerning for SBP in a patient with a hx of gastric bypass and ESRD on daily peritoneal dialysis since 2011. -Despite lack of imaging evidence (EGD on 01/16/17 showed a Kimi-en-Y gastric bypass but was otherwise normal, CT KUB with no acute findings to explain abdominal pain and abdominal US was without evidence of gallstones or acute cholecystitis) and no clinical signs of infection; patient's abdominal pain continued to progress. Due to high suspicion for acute bacterial peritonitis General Surgery consulted on 01/18 and patient taken to operating room for exploratory laparotomy for possible internal hernia related to prior gastric bypass. She is now postoperative day #1 following laparoscopic lysis of adhesions with conversion to open laparotomy and hernia repair. Helicobacter gastritis - EGD on 01/16 with gastric pouch, biopsy showed gastric body mucosa with chronic active Helicobacter gastritis.Negative for intestinal metaplasia, dysplasia, or malignancy. RECOMMENDATIONS: -Prevpac (Lansoprazole 30mg/amoxicillin 1g/clarithromycin 500mg BID) h52mukg. -Check stool antigen 8 weeks after treatment to confirm eradication -Continue antireflux medication and GERD diet. -Postop care and diet per Surgery -GI will sign off at this time but remains available if needed Thank you for involving us in the care of this interesting patient. Additional problems managed by primary Hospitalist and/or Nephrology: -End stage renal disease on peritoneal dialysis daily -Hypocalcemia -Mildly elevated lipase -Hypoglycemia -Hx of CVA -Hx peritonitis -Hypertension chronic -Diabetes mellitus -Chronic pain . VTE Prophylaxis: SCDs VTE Mechanical Devices: Intermittant Pneumatic CD Resuscitation Status: CPR: Attempt Resuscitation Sadia Trinidad DO Jan 20, 2017 08:02
[2017-01-20] MEDS: Lansoprazole 30 mg ODTablet PO SCH ×2 (08:30→21:27)
--- NOTE | 2017-01-20 08:45 | PCM.PNSURG ---
Subjective Date of Service: Jan 20, 2017 Date of Service: Jan 20, 2017 Visit Information: Reason for Visit Abdominal Pain Surgery/Surgery Date Post-Op Day # 2 Date of Admission: Jan 15, 2017 at 19:35 Hospital Day # 6 Subjective: Continues to have nausea and dry heaving. No significant emesis, just some spit ups. Tolerating diet but may be better on full liquids as still on BM or gas. Not feeling distended though. No fevers. 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 HD yesterday went well without issues with fistula. Objective Vital Sign- Last 8 Hours Date Time Temp Pulse Resp B/P Pulse Ox O2 Delivery O2 Flow Rate FiO2 01/20/17 05:55 80 01/20/17 05:46 77 17 167/96 99 Room Air 01/20/17 05:46 17 99 01/20/17 02:00 87 01/20/17 00:51 17 99 01/20/17 00:51 80 17 147/75 99 Room Air Intake and Output- Last 8 Hour 01/20/17 Cumulative From/Thru 07:00 01/15/17 15:13 - 01/20/17 05:46 Intake Total 100 ml 4407 ml Output Total 150 ml 3031.00 ml Balance -50 ml 1376.00 ml Intake Oral 100 ml 1138 ml IV Total 3209 ml Tube Irrigant 60 ml Output Urine Total 150 ml 150 ml Ultrafiltrate 2881.00 ml Estimated Blood Loss 0 ml # Voids 15 # Bowel Movements 1 General: Alert, Oriented X3, No Acute Distress Lungs: Clear to Auscultation, Normal Air Movement Heart: Regular Rate/Rhythm, Normal S1 Abdomen: Soft, Non-distended, Other (Dressings are c/d/i, PD catheter well secured. No rebound or gaurding.) Extremities: Warm Neuro: Grossly Neurologically Intact Catheters: None Result Diagram: 01/19/1771701/19/17717 Assessment & Plan Impression 51 yo F with ESRD s/p laparoscopic bria-en-y gastric bypass with abdominal pain now s/p diagnostic laparoscopy, lysis of adhesions and conversion to open for reduction of internal hernia through jejunojejunostomy mesenteric defect on 01/19. Problems: Plan - Full liquid diet, bowel regimen (miralax daily), scopolamine patch today for persistent nausea - Pain control: Transition to oral liquid oxycodone and liquid tylenol - Wound: Surgical team to remove dressings. Nylon sutures used, we will remove sutures at 7 days post op 01/25. - ESRD: Would recommend avoiding peritoneal dialysis for 2-4 weeks to allow for appropriate wound healing and reduce risk of leak or SBP. - Heme/ID: No antibiotics needed - General Surgery will continue to follow and make recommendations regarding wound management and pain control as well as assist with decision making regarding risk of PD during initial post operative recovery. VTE Prophylaxis: SCDs Resuscitation Status: CPR: Attempt Resuscitation Jaspal Michel MD Jan 20, 2017 08:45
[2017-01-20] MEDS ORDERED: oxyCODONE 1 mg/mL 5 mL Liquid PO PRN (08:50)
[2017-01-20] MEDS: Sucralfate 100 mg/mL 10 mL Suspension PO SCH ×3 (09:57→16:29)
--- NOTE | 2017-01-20 11:37 | PCM.PNNEPH ---
Subjective Date of Service Jan 20, 2017 Subjective She had dialysis yesterday without complications. Pain is controlled. 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 She is on scopolamine patch for nausea which has improved her symptom. Exam Vital Signs Vital Sign - Last Date Time Temp Pulse Resp B/P Pulse Ox O2 Delivery O2 Flow Rate FiO2 01/20/17 10:58 74 01/20/17 05:46 17 167/96 99 Room Air 01/19/17 20:27 36.9 Intake and Output 01/19/17 01/19/17 01/20/17 Cumulative From/Thru 15:00 23:00 07:00 01/15/17 15:13 - 01/20/17 05:46 Intake Total 100 ml 4407 ml Output Total 0 ml 150 ml 3031.00 ml Balance 0 ml -50 ml 1376.00 ml Intake Oral 100 ml 1138 ml IV Total 3209 ml Tube Irrigant 60 ml Output Urine Total 150 ml 150 ml Ultrafiltrate 0 ml 2881.00 ml Estimated Blood Loss 0 ml # Voids 15 # Bowel Movements 1 Exam General appearance: Awake, alert, oriented x3. Not in acute distress. HEENT: No pallor, no jaundice. No JVD. No lymphadenopathy. No thyroid enlargement. Heart: Regular rhythm. Normal S1, S2. Soft systolic murmur noted. No rubs, no gallops. Lungs: Clear to auscultation bilaterally. No wheezing. No rhonchi. Abdomen: Soft, decreased bowel sounds. Dressing at the midline. Peritoneal dialysis catheter in place. Nondistended. No hepatosplenomegaly. Tenderness over surgical wound. Extremities: No edema, cyanosis, or clubbing of fingers. Lab and Diagnostics Result Diagram: 01/19/17 0718 01/19/17 0718 X-Rays, CTs and MRIs 01/15/17 - CT KUB IMPRESSION: 1. In the absence of contrast, no acute findings to explain epigastric and periumbilical abdominal pain. 2. Trace free abdominal and pelvic fluid, expected with peritoneal dialysis catheter. Approved by: Daniel Matias M.D. on 01/15/2017 at 16:54 01/15/17 - US ABDOMEN, LIMITED IMPRESSION: No sonographic evidence for gallstones or acute cholecystitis. Approved by: Daniel Matias M.D. on 01/15/2017 at 20:23 01/17/17 - ANGIO ABD/PELVIS W/CON IMPRESSION: 1. Aorta shows no aneurysm or dissection. Major branches are patent. 2. Moderate amount of ascites with edema throughout the subcutaneous tissues. Dialysis catheter in place. 3. Bilateral renal cortical atrophy. 4. Uterine IUD present. Approved by: Eligio Tovar M.D. on 01/17/2017 at 15:38 . Additional Diagnostics SURGICAL PATHOLOGY Attending Physician:Meng Hernandez MD DATE COLLECTED:01/16/2017 SPECIMEN: Gastric, Biopsy CLINICAL HISTORY: 1). GASTRIC POUCH BIOPSY (RULE OUT H.PYLORI) FINAL DIAGNOSIS: Gastric Pouch, Biopsy: Gastric body mucosa with chronic active Helicobacter gastritis. Rare Helicobacter organisms highlighted on immunohistochemistry. Negative for intestinal metaplasia, dysplasia, or malignancy. GROSS DESCRIPTION: The specimen is received in one formalin filled container labeled with the patient's name, sublabeled "gastric pouch" consists of 2 portions of tissue which aggregate to 3 x 0.2 x 0.2 CM. The specimen is entirely submitted in one cassette. 01/17/2017DC MICRO DESCRIPTION: An immunohistochemical stain was performed to evaluate for Helicobacter organisms and is positive for rare organisms. A control stain showed appropriate reactivity. Matteo Bolivar MD, Ph.D. . Plan Impression 1. Persistent nausea and vomiting and epigastric pain secondary to internal hernia. s/p diagnostic laparoscopy, lysis of adhesions and conversion to open for reduction of internal hernia through jejunojejunostomy mesenteric defect on 01/19. 2. End-stage renal disease, on peritoneal dialysis. No evidence of peritonitis. 3. Hypoglycemia, resolved. 4. History of obesity, status post gastric bypass in 2012. 5. History of type 2 diabetes, not requiring any hypoglycemic agents. 6. Hypertension with hypertensive nephrosclerosis. 7. Renal osteodystrophy. 8. Anemia of chronic kidney disease. PLAN: 1. Hold peritoneal dialysis at least for a couple weeks. 2. Patient to receive dialysis today. Next dialysis will be performed again on Tuesday. 3. Disposition as per primary team. Darryl Maurice MD Jan 20, 2017 11:37
[2017-01-20] MEDS: HYDROmorphone 1 mg/mL Inj IVPUSH PRN ×2 (14:14→18:08)
--- NOTE | 2017-01-20 14:38 | PCM.PNMED ---
Subjective Date of Service Jan 20, 2017 Subjective Patient getting hemodialysis and is having increased abdominal pain. No nausea or vomiting. Exam Vital Signs Vital Sign - Last Date Time Temp Pulse Resp B/P Pulse Ox O2 Delivery O2 Flow Rate FiO2 01/20/17 10:58 74 01/20/17 08:33 36.8 14 143/77 98 Room Air Intake and Output 01/19/17 01/19/17 01/20/17 Cumulative From/Thru 15:00 23:00 07:00 01/15/17 15:13 - 01/20/17 05:46 Intake Total 100 ml 4407 ml Output Total 0 ml 150 ml 3031.00 ml Balance 0 ml -50 ml 1376.00 ml Intake Oral 100 ml 1138 ml IV Total 3209 ml Tube Irrigant 60 ml Output Urine Total 150 ml 150 ml Ultrafiltrate 0 ml 2881.00 ml Estimated Blood Loss 0 ml # Voids 15 # Bowel Movements 1 Exam Constitutional: Middle-aged female in moderate pain distress Head: Normocephalic atraumatic Chest: Clear to auscultation Cor: Regular rate and rhythm S1-S2 without murmur Abdomen: Soft nontender bowel sounds present Extremities: No pedal edema Neuro: Alert and oriented 3, motor strength is intact bilaterally IVs and Medications Medications Reviewed: Medications were reviewed in detail Lab and Diagnostics Laboratory Tests 72 Hours Test 01/18/17 07:45 01/18/17 11:23 01/19/17 07:18 Sodium Level 137mEq/L (134-144) 138mEq/L (134-144) Potassium Level 4.3mEq/L (3.5-5.2) 5.2mEq/L (3.5-5.2) Chloride Level 103mEq/L (97-108) 103mEq/L (97-108) Carbon Dioxide Level 22mmol/L (18-29) 18mmol/L (18-29) Blood Urea Nitrogen 40mg/dL (6-24) 47mg/dL (6-24) Creatinine 6.64mg/dL (0.57-1.00) 7.53mg/dL (0.57-1.00) Estimat Glomerular Filtration Rate 9mL/min (>59) 8mL/min (>59) Glucose Level 70mg/dL (60-99) 131mg/dL (60-99) Calcium Level 7.9mg/dL (8.5-10.1) 8.0mg/dL (8.5-10.1) Troponin T 0.021ug/L (0.0-0.011) 0.020ug/L (0.0-0.011) White Blood Count 8.9th/mm3 (3.8-10.1) Red Blood Count 3.79mil/mm3 (3.90-5.20) Hemoglobin 11.2g/dL (12.0-15.6) Hematocrit 35.7% (35.0-46.0) Mean Corpuscular Volume 94.2fL (81-100) Mean Corpuscular Hemoglobin 29.6pg (27.0-35.0) Mean Corpuscular Hemoglobin Concent 31.4% (32.0-37.0) Red Cell Distribution Width 13.5% (12.3-15.4) Platelet Count 245bil/L (150-400) Total Bilirubin 0.2mg/dL (0.0-1.2) Aspartate Amino Transf (AST/SGOT) 9U/L (0-50) Alanine Aminotransferase (ALT/SGPT) 9U/L (0-32) Alkaline Phosphatase 51U/L (25-150) Total Protein 4.7g/dL (6.4-8.4) Albumin 2.4g/dL (3.4-5.0) Result Diagram: 01/19/1771701/19/1718 Microbiology Name: MADY LYNN Age/Sex: 51/F Attend Dr: Yumiko Benson MD Acct: [id number] Unit: [id number] Status: ADM IN Location: [place] [address]-2 Re01/15/17 Disch: Specimen: [id number] Collected: 01/16/17 Status: RES Req#: [id number] Received: 01/16/17 Source: PER FLD Sp Desc : Subm Dr: Layton Abrams MD Ordered: FLDCA Comments: Collected by Nurse/Unit? Y/N Y Comment: from PD cath Procedure Result Verified Site Microbiology TRISTAN GS (GRAM STAIN) Final 01/16/17 GRAM STAIN RESULT RARE POLYS NO ORGANISMS SEEN TRISTAN CULT AEROBIC Preliminary 01/19/17 NO GROWTH AFTER 48 HOURS Held for further observation ANAEROBIC CULTURE Preliminary 01/18/17 No ANAEROBES recovered at 48 hours hold for futher observation X-Rays, CTs and MRIs 01/15/17 - CT KUB IMPRESSION: 1. In the absence of contrast, no acute findings to explain epigastric and periumbilical abdominal pain. 2. Trace free abdominal and pelvic fluid, expected with peritoneal dialysis catheter. Approved by: Daniel Matias M.D. on 01/15/2017 at 16:54 01/15/17 - US ABDOMEN, LIMITED IMPRESSION: No sonographic evidence for gallstones or acute cholecystitis. Approved by: Daniel Matias M.D. on 01/15/2017 at 20:23 01/17/17 - ANGIO ABD/PELVIS W/CON IMPRESSION: 1. Aorta shows no aneurysm or dissection. Major branches are patent. 2. Moderate amount of ascites with edema throughout the subcutaneous tissues. Dialysis catheter in place. 3. Bilateral renal cortical atrophy. 4. Uterine IUD present. Approved by: Eligio Tovar M.D. on 01/17/2017 at 15:38 . Additional Diagnostics SURGICAL PATHOLOGY Attending Physician:Meng Hernandez MD DATE COLLECTED:01/16/2017 SPECIMEN: Gastric, Biopsy CLINICAL HISTORY: 1). GASTRIC POUCH BIOPSY (RULE OUT H.PYLORI) FINAL DIAGNOSIS: Gastric Pouch, Biopsy: Gastric body mucosa with chronic active Helicobacter gastritis. Rare Helicobacter organisms highlighted on immunohistochemistry. Negative for intestinal metaplasia, dysplasia, or malignancy. GROSS DESCRIPTION: The specimen is received in one formalin filled container labeled with the patient's name, sublabeled "gastric pouch" consists of 2 portions of tissue which aggregate to 3 x 0.2 x 0.2 CM. The specimen is entirely submitted in one cassette. 01/17/2017DC MICRO DESCRIPTION: An immunohistochemical stain was performed to evaluate for Helicobacter organisms and is positive for rare organisms. A control stain showed appropriate reactivity. Matteo Bolivar MD, Ph.D. . Assessment & Plan A 51-year-old, female with a history of end-stage renal disease, on peritoneal dialysis 2011, diabetes type 2, hypertension status post gastric bypass in 2012, tubal ligation, throat abscess, carotid artery stenosis, chronic kidney disease stage 4 presents here for epigastric pain. The differential diagnosis includes anastomotic ulcer versus uncontrolled gastroesophageal reflux disease versus esophagitis versus duodenitis. Persistent abdominal pain concerning for SBP in a patient with a hx of gastric bypass and ESRD on daily peritoneal dialysis since 2011. -Despite lack of imaging evidence (EGD on 01/16/17 showed a Kimi-en-Y gastric bypass but was otherwise normal, CT KUB with no acute findings to explain abdominal pain and abdominal US was without evidence of gallstones or acute cholecystitis) and no clinical signs of infection; patient's abdominal pain continued to progress. Due to high suspicion for acute bacterial peritonitis General Surgery consulted on 01/18 and patient taken to operating room for exploratory laparotomy for possible internal hernia related to prior gastric bypass. She is now postoperative day #1 following laparoscopic lysis of adhesions with conversion to open laparotomy and hernia repair. Helicobacter gastritis - EGD on 01/16 with gastric pouch, biopsy showed gastric body mucosa with chronic active Helicobacter gastritis.Negative for intestinal metaplasia, dysplasia, or malignancy. RECOMMENDATIONS: -Prevpac (Lansoprazole 30mg/amoxicillin 1g/clarithromycin 500mg BID) p24qkod. -Check stool antigen 8 weeks after treatment to confirm eradication -Continue antireflux medication and GERD diet. -Postop care and diet per Surgery -GI will sign off at this time but remains available if needed Thank you for involving us in the care of this interesting patient. Additional problems managed by primary Hospitalist and/or Nephrology: -End stage renal disease on peritoneal dialysis daily -Hypocalcemia -Mildly elevated lipase -Hypoglycemia -Hx of CVA -Hx peritonitis -Hypertension chronic -Diabetes mellitus -Chronic pain . This is a pleasant 51-year-old female history of end-stage renal disease on daily peritoneal dialysis, hypertension, diabetes, history of CVA gastric bypass in 2012 with a prior history of peritonitis from peritoneal dialysis catheter who presented to the ED with acute onset intermittent bandlike upper abdominal and epigastric pain. Associated with pink blood-tinged vomitus. Patient was admitted for possible GI bleed and acute bacterial peritonitis. # Acute abdominal pain, POA active - Perforated viscus is difficult to rule out given history of abdominal peritoneal dialysis. - Admission Vital signs: Showed temperature 36.5, pulse 69, respiratory rate 18 , BP 185/94 map 124, O2 99% on room air. - She was seen by Dr. Hamilton in December of this year who planned on doing EGD at that time, secondary to intractable nausea and vomiting. - Suspected acute GI bleed secondary to history of ulcers and NSAID use. GI was consulted. EGD was done on 01/16 AM no evidence of ulcers, d/c protonix drip. Famotidine 10 mg PO BID. - Admission Hemogram showed: CBC is 5.1, PMNs 61.9% without evidence of bands, H /H was 11.5/35.6, platelets were normal at 275, patient did have elevated eosinophils 5.7 - Admission CT KUB showed: In the absence of contrast, no acute findings to explain epigastric and periumbilical abdominal pain. Trace free abdominal and pelvic fluid, expected with peritoneal dialysis catheter. - Abdominal ultrasound to rule out biliary etiologies: No cholecystitis -- 01/17 Peritonial fluid cultures from this morning show low concern for infection. Peritoneal fluid has white cells 4 colorless, cloudy. Gram stain and anaerobic cultures are ngtd -- 01/17 Discussed the possibility of diabetic gastroparesis with GI, Dr. Stephen sees no concern for that because she is status post bypass, and she does not have much of her stomach left. -- 01/17 Because patient has risk factors of atherosclerosis, diabetes she is at risk for mesenteric ischemia. Discussed a CTA study to rule this out with Dr. Baker, she approves. CTA abdominopelvic was ordered -- Treat possible gastroparesis with small PO dose reglan per Dr. Baker, started her on reglan poo discontineud on 01/18 as she worsened -- 01/17 CTA abd/pelvic showed no concern for mesenteric ischemia -- Dr. Hernandez has ordered a HIDA, was cancelled due to pain DATE OF SURGERY: 01/18/2017 PREOPERATIVE DIAGNOSIS(ES): 1. Abdominal pain. Possible internal hernia. 2. Status post laparoscopic gastric bypass. POSTOPERATIVE DIAGNOSIS(ES): 1. Abdominal pain. Possible internal hernia. 2. Status post laparoscopic gastric bypass. 3. Confirmed internal hernia at the jejunojejunostomy from her previous gastric bypass. SURGEON: Meng Caro MD FLIGHT ENGINEER INSTRUCTOR: Jaspal Michel MD PROCEDURE: Laparoscopic lysis of adhesions, conversion to open laparotomy, with repair of internal hernia. # H pylori on gastric biopsies, acute, present on admission As per GI : Helicobacter gastritis - EGD on 01/16 with gastric pouch, biopsy showed gastric body mucosa with chronic active Helicobacter gastritis.Negative for intestinal metaplasia, dysplasia, or malignancy. RECOMMENDATIONS: -Prevpac (Lansoprazole 30mg/amoxicillin 1g/clarithromycin 500mg BID) t15bclg. -Check stool antigen 8 weeks after treatment to confirm eradication -Continue antireflux medication and GERD diet. -Postop care and diet per Surgery -GI will sign off at this time but remains available if needed # End stage renal disease on peritoneal dialysis daily, POA - Patient gets daily peritoneal dialysis since 2011, with PD catheter placed in the right lower quadrant. She has functional left upper extremity fistula although this is not utilized. - Patient reports 2 days of taking NSAID Aleve for her abdominal pain. - High suspicion for acute bacterial peritonitis despite normal white blood cell count remains. Peritoneal dialysis fluid was sent for cell count, differential, Gram stain and culture per nephrology recommendation. - At the time of her admission Nephrology Dr. Powers to be notified by phone of the results prior to starting antibiotics. - Patient's baseline creatinine is 6.7 in December 2016, currently creatinine of 6.5. - Admission Chemistry panel for: A BUN of 37, creatinine 6.30 in a patient with a baseline creatinine of 6.7 back in December. Lactic acid was 1.2, calcium was low at 7.8 - KUB CT showed no peritoneal fluid, the abdomen was not tapped. -- Nephro is consulted and started hemodialysis on 01/16 evening #Chronic back pain with opioid dependence, present on admission -We will continue current outpatient regimen VTE Prophylaxis: SCDs VTE Mechanical Devices: Intermittant Pneumatic CD Resuscitation Status: CPR: Attempt Resuscitation Time spent 25 minutes Yumiko Benson MD Jan 20, 2017 14:38
--- NOTE | 2017-01-20 14:55 | NUR ---
Dialysis note: 3 1/2 hrs tx 1000 ml net UF JUAN fistula, accessed w/ no problems Pls see DTR for VS details Qb 350 No heparin given O2 @ 2L via NC on during tx PRN Oxycodone 5 mg po given, followed by Dilaudid 1 mg IV given for abdominal pain Tolerated tx, slept at intervals Fistula needle sites clotted w/in 10 min Stable condition at end of tx Report given to Mary MAJOR
[2017-01-20] MEDS: Polyethylene Glycol (PEG) 17 Gm Powder PO PRN (16:29)
--- NOTE | 2017-01-20 19:25 | NUR ---
Pain Pt has had severe pain today, per pt it is chronic and they use a lot of oxy chronically for years. Pt now has prn dilaudid which she has been taking regularly w/ good efficacy. Will c/t give pain meds regularly, nausea has been eliminated w/ scop patch so that is a big help.
[2017-01-21] VITALS (8 sets, daily range): BP systolic 149–196; BP diastolic 82–96; PULSE 68–78; RESP 16–19; O2SAT 96–99
--- NOTE | 2017-01-21 05:02 | NUR ---
PAIN/NAUSEA/IV Pt states her pain is fairly well adequately controlled with q4h roxicodone and PRN dilaudid. When given first dose of lucia last evening with HS medications, pt had bout of nausea with mostly dry heaving. Gave zofran, effective. Whenever IV was used with flushing or medications, pt c/o sharp pain in IV. Site had no noticeable erythema, swelling, cord-like vein, blanching, or coolness. Pt stated IV has felt this way since insertion. Put IV pushes as IVPB at slow rate for pt comfort. Pt has had no bouts of nausea or retching to this RN's knowledge last night. Pt has appeared to be sleeping soundly most of the night. Hourly rounding.
[2017-01-21] MEDS: Sucralfate 100 mg/mL 10 mL Suspension PO SCH ×2 (08:16→12:59)
[2017-01-21] MEDS: Lansoprazole 30 mg ODTablet PO SCH ×2 (08:17→20:25)
[2017-01-21] MEDS: Ondansetron 2 mg/mL 2 mL Inj IVPUSH PRN (08:17)
--- NOTE | 2017-01-21 09:35 | PCM.PNSURG ---
Subjective Date of Service: Jan 21, 2017 Date of Service: Jan 21, 2017 Visit Information: Reason for Visit Abdominal Pain Surgery/Surgery Date Post-Op Day # 3 Status post laparoscopic lysis of adhesions, conversion to open laparotomy, with repair of internal hernia Date of Admission: Jan 15, 2017 at 19:35 Hospital Day # Subjective: The patient reports significantly improved nausea with scopolamine patch & liquid narcotic analgesics. Her pain is well-controlled & she has been tolerating a full liquid diet with improved oral fluid intake. The patient has been out of bed to the bathroom voiding regularly with positive flatus. She has started regular hemodialysis. Postop General: No Complaints Gastrointestinal: Good Appetite, Tolerating Oral Feedings, No N/V, Passing Flatus Pain Management: Good Pain Control Postop Activity: Ambulating in Room Only Objective Vital Sign- Last 8 Hours Date Time Temp Pulse Resp B/P Pulse Ox O2 Delivery O2 Flow Rate FiO2 01/21/17 08:02 36.5 71 16 165/88 99 Room Air 01/21/17 06:31 36.5 76 19 158/84 99 Room Air 01/21/17 05:33 68 01/21/17 02:08 36.8 72 16 149/82 96 Room Air Intake and Output- Last 8 Hour 01/21/17 Cumulative From/Thru 07:00 01/15/17 15:13 - 01/21/17 06:09 Intake Total 240 ml 5247 ml Output Total 4031.00 ml Balance 240 ml 1216.00 ml Intake Oral 200 ml 1938 ml IV Total 40 ml 3249 ml Tube Irrigant 60 ml Output Urine Total 150 ml Ultrafiltrate 3881.00 ml Estimated Blood Loss 0 ml # Voids 2 17 # Bowel Movements 1 General: Alert, Oriented X3, Cooperative, No Acute Distress Lungs: Clear to Auscultation Heart: Exam Unremarkable Abdomen: Soft, Appropriately tender, Non-distended, Normoactive bowel tones SURGICAL WOUND : Wound General Appearence: Sutures, Intact, Well Approximated, No Erythema, No Discharge, No Inflammatory Changes Dressing & Drainage Status: Dressing Removed Wound Drainage Type: Other (PD drain clamped) Extremities: Thigh&Calf Soft/Nontender Neuro: Normal Speech Result Diagram: 01/19/1718 01/19/1718 Assessment & Plan Impression Primary Diagnoses: 1. Internal hernia at the jejunojejunostomy from her previous gastric bypass. 2. Status post laparoscopic lysis of adhesions, conversion to open laparotomy, with repair of internal hernia: POD # 3 Doing well with plans to manage other comorbidities, advance diet, & rehabilitation. Other Medical & Surgical History: History of morbid obesity History of Kimi-en-Y gastric bypass surgery End-stage renal disease Diabetes mellitus type II History of severe anemia CVA 2009 History of peritonitis 2013 Hypertension Carotid artery stenosis IUD History of fistula 2 Current PD catheter placement History of throat abscess History of tubal ligation Problems: Plan 1. Diabetic diet as tolerated. 2. Continue antiemetics e.g. scopolamine prn. 3. Liquid narcotic analgesics e.g. oxycodone prn. 4. Ambulate with PT. 5. Hemodialysis for 4 weeks then returned to PD. 6. Will need suture removal next week. 7. Continue medical care with Attending Hospitalist Team VTE Prophylaxis: SCDs Resuscitation Status: CPR: Attempt Resuscitation Jarred Cade PA-C Jan 21, 2017 09:35
--- NOTE | 2017-01-21 11:09 | NUR ---
NUTRITION FOLLOW-UP: ASSESS: 51YO F admit with abdominal pain of unclear etiology. She is POD 3 s/p laparoscopic lysis of adhesions, conversion to open laparotomy, with repair of internal hernia. She is tolerating full liquid diet well at ~50%. No BM recorded yet. She is tolerating HD well. Pt with h/o DM prior to gastric bypass, reports no longer dm post bypass surgery with c/o hypoglycemia, BG of 37, A1c 4.8. No new wt has been recorded since admit. PMHX: ESRD on peritoneal dialysis, gastric bypass, DM/hypoglycemia-as noted above. DIET: Full Liquid, PO 50% LABS: Bun 47, cargo handler 7.53, Glu 131, Ca 8.0, Alb 2.4 MEDS: Reviewed, senna, miralax, phosLo, reglan, zofran GI: Last BM 01/17 WEIGHT: 58.6kg BMI: 22.0kg/m2 EST.NEEDS: DIALYSIS (30-35kcal/kg;1.2-2.0g/kg pro) Kcal: 7363-8350 Pro: 70-115g NUTRITION DIAGNOSIS: (1) Altered GI tract function related to h/o gastric bypass, current reports of abdominal pain of unknown etiology as evidenced by n/v.--IMPROVING INTERVENTION: (1) Continue to advance diet as tolerated, continue high pro, low carb diet due to history of gastric bypass surgery (2) Recommend obtaining new wt MONITOR/EVALUATE: PO intake, GI status, lab values, POC, nutrition status. F/U per moderate risk.
--- NOTE | 2017-01-21 11:29 | NUR ---
Social Work: [facility] SW met with patient to obtain signature of [facility]. KALIN has been signed by patient. KORI Vivar
--- NOTE | 2017-01-21 14:04 | NUR ---
Evaluation completed. Please go to "Notes" then click on "Assessments and Notes" (bottom left corner of screen). Then select appropriate discipline tab on top of screen.
--- NOTE | 2017-01-21 15:35 | PATH ---
SURGICAL PATHOLOGY Attending Physician:Elisa Tong MD CASE STATUS: Signed Out PATIENT NAME: MADY LYNN PID: [id number] : 1965 DATE COLLECTED:01/16/2017 00:00 SPECIMEN: Peritoneal Fluid CLINICAL HISTORY: Peritoneal Fluid ICD-10 code not given FINAL DIAGNOSIS: Peritoneal Fluid, Cytology: Negative for malignant cells. ICD10: R18.8 GROSS DESCRIPTION: Received fresh on 01/19/2017 is approximately 5 cc of clear colorless fluid. Prepared are one cell block and one Cytospin slide. Vo ICD-9 CODES: CPT CODES: 1: 17659, 09208 Electronically Signed Out Petra Hardy MD [facility] [address], [place] [address] Technical component performed at [facility], [facility] [address], [place], [address]
--- NOTE | 2017-01-21 16:35 | PCM.PNMED ---
Subjective Date of Service Jan 21, 2017 Subjective Patient had some abdominal pain during dialysis yesterday but that has resolved. She has been passing gas no bowel movement yet. Her abdomen feels better Exam Vital Signs Vital Sign - Last Date Time Temp Pulse Resp B/P Pulse Ox O2 Delivery O2 Flow Rate FiO2 01/21/17 08:02 36.5 71 16 165/88 99 Room Air Intake and Output 01/20/17 01/20/17 01/21/17 Cumulative From/Thru 15:00 23:00 07:00 01/15/17 15:13 - 01/21/17 06:09 Intake Total 600 ml 240 ml 5247 ml Output Total 1000 ml 4031.00 ml Balance -1000 ml 600 ml 240 ml 1216.00 ml Intake Oral 600 ml 200 ml 1938 ml IV Total 40 ml 3249 ml Tube Irrigant 60 ml Output Urine Total 150 ml Ultrafiltrate 1000 ml 3881.00 ml Estimated Blood Loss 0 ml # Voids 2 17 # Bowel Movements 1 Exam Situational: Malaise female in no acute distress Head: Normocephalic/atraumatic Chest: Clear to auscultation Cor: Regular rate and rhythm S1-S2 Abdomen: Well-healing incisional areas bowel sounds are present mild diffuse tenderness no rebound no guarding Extremities: No pedal edema Neuro: Alert and oriented 3, motor strength is intact bilaterally Lab and Diagnostics Result Diagram: 01/19/1771701/19/17717 Microbiology Name: MADY LYNN Age/Sex: 51/F Attend Dr: Yumiko Benson MD Acct: [id number] Unit: [id number] Status: ADM [place] [facility] [place] Re01/15/17 Disch: Specimen: [id number] Collected: 01/16/17 Status: RES Ashley#: [id number] Received: 01/16/17 Source: PER FLD Sp Desc : Subm Dr: Layton Abrams MD Ordered: FLDCA Comments: Collected by Nurse/Unit? Y/N Y Comment: from PD cath Procedure Result Verified Site Microbiology TRISTAN GS (GRAM STAIN) Final 01/16/17-1136 GRAM STAIN RESULT RARE POLYS NO ORGANISMS SEEN TRISTAN CULT AEROBIC Preliminary 01/19/17 NO GROWTH AFTER 48 HOURS Held for further observation ANAEROBIC CULTURE Preliminary 01/18/17 No ANAEROBES recovered at 48 hours hold for futher observation X-Rays, CTs and MRIs 01/15/17 - CT KUB IMPRESSION: 1. In the absence of contrast, no acute findings to explain epigastric and periumbilical abdominal pain. 2. Trace free abdominal and pelvic fluid, expected with peritoneal dialysis catheter. Approved by: Daniel Matias M.D. on 01/15/2017 at 16:54 01/15/17 - US ABDOMEN, LIMITED IMPRESSION: No sonographic evidence for gallstones or acute cholecystitis. Approved by: Daniel Matias M.D. on 01/15/2017 at 20:23 01/17/17 - ANGIO ABD/PELVIS W/CON IMPRESSION: 1. Aorta shows no aneurysm or dissection. Major branches are patent. 2. Moderate amount of ascites with edema throughout the subcutaneous tissues. Dialysis catheter in place. 3. Bilateral renal cortical atrophy. 4. Uterine IUD present. Approved by: Eligio Tovar M.D. on 01/17/2017 at 15:38 . Additional Diagnostics SURGICAL PATHOLOGY Attending Physician:Meng Hernandez MD DATE COLLECTED:01/16/2017 SPECIMEN: Gastric, Biopsy CLINICAL HISTORY: 1). GASTRIC POUCH BIOPSY (RULE OUT H.PYLORI) FINAL DIAGNOSIS: Gastric Pouch, Biopsy: Gastric body mucosa with chronic active Helicobacter gastritis. Rare Helicobacter organisms highlighted on immunohistochemistry. Negative for intestinal metaplasia, dysplasia, or malignancy. GROSS DESCRIPTION: The specimen is received in one formalin filled container labeled with the patient's name, sublabeled "gastric pouch" consists of 2 portions of tissue which aggregate to 3 x 0.2 x 0.2 CM. The specimen is entirely submitted in one cassette. 01/17/2017DC MICRO DESCRIPTION: An immunohistochemical stain was performed to evaluate for Helicobacter organisms and is positive for rare organisms. A control stain showed appropriate reactivity. Matteo Bolivar MD, Ph.D. . Assessment & Plan . This is a pleasant 51-year-old female history of end-stage renal disease on daily peritoneal dialysis, hypertension, diabetes, history of CVA gastric bypass in 2012 with a prior history of peritonitis from peritoneal dialysis catheter who presented to the ED with acute onset intermittent bandlike upper abdominal and epigastric pain. Associated with pink blood-tinged vomitus. Patient was admitted for possible GI bleed and acute bacterial peritonitis. # Acute abdominal pain, POA active - Perforated viscus is difficult to rule out given history of abdominal peritoneal dialysis. - Admission Vital signs: Showed temperature 36.5, pulse 69, respiratory rate 18 , BP 185/94 map 124, O2 99% on room air. - She was seen by Dr. Hamilton in December of this year who planned on doing EGD at that time, secondary to intractable nausea and vomiting. - Suspected acute GI bleed secondary to history of ulcers and NSAID use. GI was consulted. EGD was done on 9 AM no evidence of ulcers, d/c protonix drip. Famotidine 10 mg PO BID. - Admission Hemogram showed: CBC is 5.1, PMNs 61.9% without evidence of bands, H /H was 11.5/35.6, platelets were normal at 275, patient did have elevated eosinophils 5.7 - Admission CT KUB showed: In the absence of contrast, no acute findings to explain epigastric and periumbilical abdominal pain. Trace free abdominal and pelvic fluid, expected with peritoneal dialysis catheter. - Abdominal ultrasound to rule out biliary etiologies: No cholecystitis -- 01/17 Peritonial fluid cultures from this morning show low concern for infection. Peritoneal fluid has white cells 4 colorless, cloudy. Gram stain and anaerobic cultures are ngtd -- 01/17 Discussed the possibility of diabetic gastroparesis with GI, Dr. Stephen sees no concern for that because she is status post bypass, and she does not have much of her stomach left. -- 01/17 Because patient has risk factors of atherosclerosis, diabetes she is at risk for mesenteric ischemia. Discussed a CTA study to rule this out with Dr. Baker, she approves. CTA abdominopelvic was ordered -- Treat possible gastroparesis with small PO dose reglan per Dr. Baker, started her on reglan poo discontineud on 01/18 as she worsened -- 01/17 CTA abd/pelvic showed no concern for mesenteric ischemia -- Dr. Hernandez has ordered a HIDA, was cancelled due to pain DATE OF SURGERY: 01/18/2017 PREOPERATIVE DIAGNOSIS(ES): 1. Abdominal pain. Possible internal hernia. 2. Status post laparoscopic gastric bypass. POSTOPERATIVE DIAGNOSIS(ES): 1. Abdominal pain. Possible internal hernia. 2. Status post laparoscopic gastric bypass. 3. Confirmed internal hernia at the jejunojejunostomy from her previous gastric bypass. SURGEON: Meng Caro MD [employer]: Jaspal Michel MD PROCEDURE: Laparoscopic lysis of adhesions, conversion to open laparotomy, with repair of internal hernia. # H pylori on gastric biopsies, acute, present on admission As per GI : Helicobacter gastritis - EGD on 01/16 with gastric pouch, biopsy showed gastric body mucosa with chronic active Helicobacter gastritis.Negative for intestinal metaplasia, dysplasia, or malignancy. RECOMMENDATIONS: -Prevpac (Lansoprazole 30mg/amoxicillin 1g/clarithromycin 500mg BID) [id number]. -Check stool antigen 8 weeks after treatment to confirm eradication -Continue antireflux medication and GERD diet. -Postop care and diet per Surgery -GI will sign off at this time but remains available if needed # End stage renal disease on peritoneal dialysis daily, POA - Patient gets daily peritoneal dialysis since 2011, with PD catheter placed in the right lower quadrant. She has functional left upper extremity fistula although this is not utilized. - Patient reports 2 days of taking NSAID Aleve for her abdominal pain. - High suspicion for acute bacterial peritonitis despite normal white blood cell count remains. Peritoneal dialysis fluid was sent for cell count, differential, Gram stain and culture per nephrology recommendation. - At the time of her admission Nephrology Dr. Powers to be notified by phone of the results prior to starting antibiotics. - Patient's baseline creatinine is 6.7 in December 2016, currently creatinine of 6.5. - Admission Chemistry panel for: A BUN of 37, creatinine 6.30 in a patient with a baseline creatinine of 6.7 back in December. Lactic acid was 1.2, calcium was low at 7.8 - KUB CT showed no peritoneal fluid, the abdomen was not tapped. -- Nephro is consulted and started hemodialysis on 01/16 evening #Chronic back pain with opioid dependence, present on admission -We will continue current outpatient regimen VTE Prophylaxis: SCDs VTE Mechanical Devices: Intermittant Pneumatic CD Resuscitation Status: CPR: Attempt Resuscitation Time spent 30 minute Yumiko Benson MD Jan 21, 2017 16:35
[2017-01-21] MEDS: Sucralfate 1,000 mg Tablet PO SCH (16:52)
--- NOTE | 2017-01-21 16:59 | NUR ---
Pain control and nausea Pt c/o pain in abd. Increased as day progressed and she had more solid food to eat. Tolerated diet, small amounts but she is eating. good BT, passing flatus, no BM this shift. She c/o nausea this AM, medicated with IV zofran for relief. As pt is taking sucralafate, she retches and spits up after taking liquid and pill. It is immediate following swallow.
[2017-01-22 01:00] VITALS: BP 168/89; PULSE 73; RESP 16; O2SAT 96
--- NOTE | 2017-01-22 05:36 | NUR ---
Doing Better Pt. reports no nausea and/or vomiting this shift. Pain under control with Chantal and BS is w/in normal range. Still no BM but she is urinating. VSS except for B/P, which is high; Trandate given IV push which helped bring down B/P but still elevated. WCTM Possible for patient to discharge today.
[2017-01-22 06:10] VITALS: BP 166/83; PULSE 72; RESP 16; O2SAT 97
[2017-01-22] MEDS: Ondansetron 2 mg/mL 2 mL Inj IVPUSH PRN (08:16)
[2017-01-22] MEDS: Sucralfate 1,000 mg Tablet PO SCH ×2 (08:17→11:30)
[2017-01-22] MEDS: Lansoprazole 30 mg ODTablet PO SCH (08:20)
[2017-01-22 08:59] VITALS: BP 172/88; PULSE 69
--- NOTE | 2017-01-22 11:19 | PCM.DIMED ---
Discharge Instructions Date of Service Jan 22, 2017 Dates of Hospitalization Jan 15, 2017 at 19:35 Discharge Diagnosis Discharge Diagnosis Post op internal hernia repair and lysis of adhesions,end stage renal disease Diet Discharge Diet: Other (low residue) Activity Discharge Activity: Other (Progress as tolerated without lifting or bending) Call your provider Call your provider for: Fever or Chills, Shortness of breath, Bleeding, Chest pain, Vomitting, Excessive diarrhea, Weakness (unilateral) Patient Instructions Follow-up Provider: Karina Tong DO Follow-up with PCP in: 1 week Provider: Irma Robles MD Follow-up in: 1 week (or as general surgery service recommended) Yumiko Benson MD Jan 22, 2017 11:19
--- NOTE | 2017-01-22 11:22 | PROG NOTE ---
[address] [address] PROGRESS NOTE PATIENT: MADY LYNN : 1965 MR#: [id number] ADMIT: 01/15/2017 JOB ID: [id number] DATE: 01/22/2017 SUBJECTIVE: Postop day three, reduction of internal hernia and repair of internal hernia. She is doing well, passing gas, tolerating liquids. OBJECTIVE: Her abdominal examination is benign. Her incision is without signs of infection. IMPRESSION AND PLAN: Doing well. Advance diet.
--- NOTE | 2017-01-22 12:45 | NUR ---
Dialysis note: 3 1/2 hrs tx 1000 ml net UF JUAN fistula, accessed w/ no problems Pls see DTR for VS details Qb 350 No heparin given O2 @ 2L via NC on during tx Tolerated treatment Fistula needle sites clotted w/in 10 min Stable condition at end of tx Report given to Mary MAJOR
[2017-01-22] MEDS ORDERED: OXYC-530 PO (13:11)
[2017-01-22] MEDS ORDERED: LANS30TA4 PO (13:11)
[2017-01-22] MEDS ORDERED: CLAR500T PO (13:11)
[2017-01-22] MEDS ORDERED: AMOX500T2 PO (13:11)
--- NOTE | 2017-01-22 13:50 | NUR ---
Discharge Note Pt discharged @ 1345, spouse here to transport home. IV catheter x 1 in right forearm removed by patient when RN was out of room, site WNL, no bleeding noted, refused dressing. Discharge instructions/medications discussed & understood. Prescriptions x 4 to be hand carried to pharmacy. Patient to make f/u appt w/ Dr. Robles in 1 week. Abd sutures WNL, no redness/oozing, open to air, discussed signs & symptoms of infection, understood. All belongings gathered, nothing left behind, patient & spouse walked to elevator by RN. Patient dialyzed early this a.m., see dialysis note.
--- NOTE | 2017-01-22 15:17 | NUR ---
Social Work- discharge/multidisciplinary rounds: --Late Note Data:EMR Reviewed. Pt is on day 7 of hospitalization for abdominal pain per H&P. Pt is medically stable, discharge orders active. Pt resides at home and does her own peritoneal dialysis. Pt has been up independent in her room. No concerns noted around pt's capacity for self care from RN or MD.No discharge needs. Pt d/c home with her spouse to transport via POV. Assessment: Pt who is independent at baseline. Plan: Pt to discharge home when medically stable, spouse transported via POV. No discharge needs. Windy Gore, [employer]
--- NOTE | 2017-01-22 17:00 | PCM.DC.MED ---
Discharge Summary Date of Service Jan 22, 2017 Dates of Hospitalization Date of Hospital Admission Jan 15, 2017 at 19:35 Date of Discharge: Jan 22, 2017 Providers: Admitting Physician: Kobe Vieira MD Primary Care Physician: Karina Tong DO Attending Physician: Yumiko Medina MD Diagnosis at Time of Discharge Diagnosis at Time of Discharge Post op internal hernia repair and lysis of adhesions,end stage renal disease Consultations Gen. surgery, gastroenterology Procedures XRay, CTs & MRIs 01/15/17 - CT KUB IMPRESSION: 1. In the absence of contrast, no acute findings to explain epigastric and periumbilical abdominal pain. 2. Trace free abdominal and pelvic fluid, expected with peritoneal dialysis catheter. Approved by: Daniel Matias M.D. on 01/15/2017 at 16:54 01/15/17 - US ABDOMEN, LIMITED IMPRESSION: No sonographic evidence for gallstones or acute cholecystitis. Approved by: Daniel Matias M.D. on 01/15/2017 at 20:23 01/17/17 - ANGIO ABD/PELVIS W/CON IMPRESSION: 1. Aorta shows no aneurysm or dissection. Major branches are patent. 2. Moderate amount of ascites with edema throughout the subcutaneous tissues. Dialysis catheter in place. 3. Bilateral renal cortical atrophy. 4. Uterine IUD present. Approved by: Eligio Tovar M.D. on 01/17/2017 at 15:38 . Other Diagnostics SURGICAL PATHOLOGY Attending Physician:Meng Hernandez MD DATE COLLECTED:01/16/2017 SPECIMEN: Gastric, Biopsy CLINICAL HISTORY: 1). GASTRIC POUCH BIOPSY (RULE OUT H.PYLORI) FINAL DIAGNOSIS: Gastric Pouch, Biopsy: Gastric body mucosa with chronic active Helicobacter gastritis. Rare Helicobacter organisms highlighted on immunohistochemistry. Negative for intestinal metaplasia, dysplasia, or malignancy. GROSS DESCRIPTION: The specimen is received in one formalin filled container labeled with the patient's name, sublabeled "gastric pouch" consists of 2 portions of tissue which aggregate to 3 x 0.2 x 0.2 CM. The specimen is entirely submitted in one cassette. 01/17/2017DC MICRO DESCRIPTION: An immunohistochemical stain was performed to evaluate for Helicobacter organisms and is positive for rare organisms. A control stain showed appropriate reactivity. Matteo Bolivar MD, Ph.D. . Brief History This is a pleasant 51 y/o female with hx of chronic ESRD on daily peritoneal dialysis since ,with baseline creatinine of 6.7 in December 2016, history of HTN, hypercholesterolemia, DM type 2, history of CVA, gastric bypass in 2012, prior peritonitis (2/2 PD catheter), who presented with complaint of intermittent band-like upper abdominal pain onset 01/14/2017. The patient had been experiencing intermittent, severe, band-like upper abdominal pain for 2 days which is exacerbated by eating or drinking. Associated symptoms included nausea, vomiting. With a very small amount of pink blood in her vomit. Her abdominal pain is relieved by NSAIDs medication (Aleve) she has been taking 2 of every 2 hours despite knowing that it is bad for her renal failure. Pt denies fever, chills. She still makes urine. Of note patient was seen by GI in 12/29/[address] Hamilton for persistent and refractory nausea vomiting, which typically is sudden in onset when it occurs and associated with eating food. Dr. Hamilton had planned on doing an EGD. Per his note on 12/29/2016 the patient typically continues to vomit until her stomach is emptied. Her symptoms are typically improved with antinausea medication. Patient did have a EGD done prior by Dr. Graham 2012. EGD at that time showed a small erosion in the duodenum, as well as esophagitis. In the ED: Both nephrology and GI were consulted. The patient peritoneal fluid from peritoneal dialysis catheter has been sent for cell count, differential, Gram stain and culture,and patient was placed on IV Protonix for suspected upper GI bleed given history of gastric ulcers and NSAID use. CT KUB showed: In the absence of contrast, no acute findings to explain epigastric and periumbilical abdominal pain. Trace free abdominal and pelvic fluid, expected with peritoneal dialysis catheter. Patient received single 1 L IV fluids normal saline, dose of IV Protonix 40 mg. 1000 mg of Carafate, Zofran IV and IV Dilaudid for pain. Vital signs: Showed temperature 36.5, pulse 69, respiratory rate 18, BP 185/94 map 124, O2 99% on room air. Hemogram showed: CBC is 5.1, PMNs 61.9% without evidence of bands, H/H was 11.5/ 35.6, platelets were normal at 275, patient did have elevated eosinophils 5.7 Scearce repair always significant for: A BUN of 37, creatinine 6.30 in a patient with a baseline creatinine of 6.7 back in December. Lactic acid was 1.2, calcium was low at 7.8 Hospital Course . This is a pleasant 51-year-old female history of end-stage renal disease on daily peritoneal dialysis, hypertension, diabetes, history of CVA gastric bypass in 2012 with a prior history of peritonitis from peritoneal dialysis catheter who presented to the ED with acute onset intermittent bandlike upper abdominal and epigastric pain. Associated with pink blood-tinged vomitus. Patient was admitted for possible GI bleed and acute bacterial peritonitis. # Acute abdominal pain, POA active - Perforated viscus is difficult to rule out given history of abdominal peritoneal dialysis. - Admission Vital signs: Showed temperature 36.5, pulse 69, respiratory rate 18 , BP 185/94 map 124, O2 99% on room air. - She was seen by Dr. Hamilton in December of this year who planned on doing EGD at that time, secondary to intractable nausea and vomiting. - Suspected acute GI bleed secondary to history of ulcers and NSAID use. GI was consulted. EGD was done on 910 AM no evidence of ulcers, d/c protonix drip. Famotidine 10 mg PO BID. - Admission Hemogram showed: CBC is 5.1, PMNs 61.9% without evidence of bands, H /H was 11.5/35.6, platelets were normal at 275, patient did have elevated eosinophils 5.7 - Admission CT KUB showed: In the absence of contrast, no acute findings to explain epigastric and periumbilical abdominal pain. Trace free abdominal and pelvic fluid, expected with peritoneal dialysis catheter. - Abdominal ultrasound to rule out biliary etiologies: No cholecystitis -- 01/17 Peritonial fluid cultures from this morning show low concern for infection. Peritoneal fluid has white cells 4 colorless, cloudy. Gram stain and anaerobic cultures are ngtd -- 01/17 Discussed the possibility of diabetic gastroparesis with GI, Dr. Stephen sees no concern for that because she is status post bypass, and she does not have much of her stomach left. -- 01/17 Because patient has risk factors of atherosclerosis, diabetes she is at risk for mesenteric ischemia. Discussed a CTA study to rule this out with Dr. Baker, she approves. CTA abdominopelvic was ordered -- Treat possible gastroparesis with small PO dose reglan per Dr. Baker, started her on reglan poo discontineud on 01/18 as she worsened -- 01/17 CTA abd/pelvic showed no concern for mesenteric ischemia -- Dr. Hernandez has ordered a HIDA, was cancelled due to pain DATE OF SURGERY: 01/18/2017 PREOPERATIVE DIAGNOSIS(ES): 1. Abdominal pain. Possible internal hernia. 2. Status post laparoscopic gastric bypass. POSTOPERATIVE DIAGNOSIS(ES): 1. Abdominal pain. Possible internal hernia. 2. Status post laparoscopic gastric bypass. 3. Confirmed internal hernia at the jejunojejunostomy from her previous gastric bypass. SURGEON: Meng Caro MD PEWTER FABRICATOR: Jaspal Michel MD PROCEDURE: Laparoscopic lysis of adhesions, conversion to open laparotomy, with repair of internal hernia. -The patient had very little abdominal pain several days prior to discharge and progressively had more flatus passing hence she was anxious to be discharged home today # H pylori on gastric biopsies, acute, present on admission As per GI : Helicobacter gastritis - EGD on 01/16 with gastric pouch, biopsy showed gastric body mucosa with chronic active Helicobacter gastritis.Negative for intestinal metaplasia, dysplasia, or malignancy. RECOMMENDATIONS: -Prevpac (Lansoprazole 30mg/amoxicillin 1g/clarithromycin 500mg BID) [id number]. -Check stool antigen 8 weeks after treatment to confirm eradication -Continue antireflux medication and GERD diet. -Postop care and diet per Surgery -GI will sign off at this time but remains available if needed # End stage renal disease on peritoneal dialysis daily, POA - Patient gets daily peritoneal dialysis since 2011, with PD catheter placed in the right lower quadrant. She has functional left upper extremity fistula although this is not utilized. - Patient reports 2 days of taking NSAID Aleve for her abdominal pain. - High suspicion for acute bacterial peritonitis despite normal white blood cell count remains. Peritoneal dialysis fluid was sent for cell count, differential, Gram stain and culture per nephrology recommendation. - At the time of her admission Nephrology Dr. Powers to be notified by phone of the results prior to starting antibiotics. - Patient's baseline creatinine is 6.7 in December 2016, currently creatinine of 6.5. - Admission Chemistry panel for: A BUN of 37, creatinine 6.30 in a patient with a baseline creatinine of 6.7 back in December. Lactic acid was 1.2, calcium was low at 7.8 - KUB CT showed no peritoneal fluid, the abdomen was not tapped. -- Nephro is consulted and started hemodialysis on 01/16 evening #Chronic back pain with opioid dependence, present on admission -We will continue current outpatient regimen Exam Vital Signs (Last) Date Time Temp Pulse Resp B/P Pulse Ox O2 Delivery O2 Flow Rate FiO2 01/22/17 08:59 69 01/22/17 06:10 36.7 16 166/83 97 Room Air Exam Constitutional: Middle-aged female in no acute distress Head: Normocephalic atraumatic Cor: Regular rate and rhythm S1-S2 without murmur Chest: Clear to auscultation Abdomen: Soft nontender bowel sounds present sutured areas are healing well with no drainage Extremities: No pedal edema Psych: Mood and affect are appropriate Skin: No rashes Neuro: Alert and oriented 3, motor strength is intact bilaterally: Test 01/15/17 15:56 01/15/17 16:35 01/15/17 20:40 01/16/17 06:19 Lactic Acid Level 1.2mmol/L (0.4-2.0) Magnesium Level 2.4mg/dL (1.6-2.6) Hold Vazquez Top Tube Received (Received) Hold Urine Received (Received) Prothrombin Time 9.3sec (8.1-12.5) Prothromb Time International Ratio 0.87ratio Activated Partial Thromboplast Time 25.0sec (22.8-33.0) Neutrophils (%) (Auto) 50.8% (40-74) Lymphocytes (%) (Auto) 33.5% (14-46) Monocytes (%) (Auto) 8.1% (4-12) Eosinophils (%) (Auto) 6.3% (0-5) Basophils (%) (Auto) 1.3% (0-3) Hemoglobin A1c 4.8% (4.8-5.6) Lipase 35U/L (13-60) Test 01/16/17 20:25 01/17/17 07:57 01/18/17 11:23 01/19/17 07:18 Body Fluid Source Peritoneal fluid Body Fluid Color Colorless (Clear) Body Fluid Appearance Cloudy Body Fluid WBC 4/mm3 Body Fluid RBC 12/mm3 Body Fluid Polynuclear WBCs % Body Fluid Lymphocytes % Body Fluid Monocytes % Body Fluid Eosinophils % Body Fluid Basophils % Phosphorus Level 6.1mg/dL (2.5-4.9) Troponin T 0.020ug/L (0.0-0.011) White Blood Count 8.9th/mm3 (3.8-10.1) Red Blood Count 3.79mil/mm3 (3.90-5.20) Hemoglobin 11.2g/dL (12.0-15.6) Hematocrit 35.7% (35.0-46.0) Mean Corpuscular Volume 94.2fL (81-100) Mean Corpuscular Hemoglobin 29.6pg (27.0-35.0) Mean Corpuscular Hemoglobin Concent 31.4% (32.0-37.0) Red Cell Distribution Width 13.5% (12.3-15.4) Platelet Count 245bil/L (150-400) Sodium Level 138mEq/L (134-144) Potassium Level 5.2mEq/L (3.5-5.2) Chloride Level 103mEq/L (97-108) Carbon Dioxide Level 18mmol/L (18-29) Blood Urea Nitrogen 47mg/dL (6-24) Creatinine 7.53mg/dL (0.57-1.00) Estimat Glomerular Filtration Rate 8mL/min (>59) Glucose Level 131mg/dL (60-99) Calcium Level 8.0mg/dL (8.5-10.1) Total Bilirubin 0.2mg/dL (0.0-1.2) Aspartate Amino Transf (AST/SGOT) 9U/L (0-50) Alanine Aminotransferase (ALT/SGPT) 9U/L (0-32) Alkaline Phosphatase 51U/L (25-150) Total Protein 4.7g/dL (6.4-8.4) Albumin 2.4g/dL (3.4-5.0) Microbiology Results Name: MADY LYNN Age/Sex: 51/F Attend Dr: Yumiko Medina MD Acct: [id number] Unit: [id number] Status: ADM IN Location: [place] [address]-2 Re01/15/17 Disch: Specimen: [id number] Collected: 01/16/17 Status: RES Req#: [id number] Received: 01/16/17 Source: PER FLD Sp Desc : Subm Dr: Layton Abrams MD Ordered: FLDCA Comments: Collected by Nurse/Unit? Y/N Y Comment: from PD cath Procedure Result Verified Site Microbiology TRISTAN GS (GRAM STAIN) Final 01/16/17 GRAM STAIN RESULT RARE POLYS NO ORGANISMS SEEN TRISTAN CULT AEROBIC Preliminary 01/19/17 NO GROWTH AFTER 48 HOURS Held for further observation ANAEROBIC CULTURE Preliminary 01/18/17 No ANAEROBES recovered at 48 hours hold for futher observation Discharge Medications Discharge Medications Amoxicillin (Amoxicillin) 500 Mg Tablet 1,000 MG PO DAILY@2029 Prescribed by: YUMIKO MEDINA MD Aspirin Chew (Aspirin Chew) 81 Mg Chew 81 MG PO DAILY (Reported) Calcium Acetate (Calcium Acetate) 667 Mg Capsule 6 CAPSULE PO TID (Reported) Clarithromycin (Clarithromycin) 500 Mg Tablet 500 MG PO DAILY@2029 Prescribed by: YUMIKO MEDINA MD Lansoprazole ODT (Prevacid ODT) 30 Mg Tablet 30 MG PO BID Prescribed by: YUMIKO MEDINA MD Losartan Potassium (Losartan Potassium) 50 Mg Tablet 50 MG PO BID (Reported) Ondansetron (Ondansetron) 4 Mg Tablet 4 MG PO TID (Reported) Venlafaxine (Venlafaxine) 25 Mg Tablet 25 MG PO HS (Reported) As needed Gabapentin (Gabapentin) 300 Mg Capsule 300 MG PO HS PRN PRN For Pain (Reported) Ropinirole (Ropinirole) 1 Mg Tablet 1 MG PO HS PRN PRN For Pain (Reported) oxyCODONE-Acetaminophen 5-325 mg (oxyCODONE-Acetaminophen 5-325 mg) 1 Each Tablet 1-2 TABLET PO every 4-6hrs PRN PRN For Pain (Reported) Followup Plan Disposition: Home after her hemodialysis session today Discharge Diet: Other (low residue) Discharge Activity: Other (Progress as tolerated without lifting or bending) Follow-up Provider: Karina Tong DO Follow-up with PCP in: 1 week Provider: Irma Robles MD Follow-up in: 1 week (or as general surgery service recommended) Time spent 60 minutes copies to: Karina Tong Cheryl A MD Jan 22, 2017 16:59
== END 2017-01-22 13:50 | disposition home or self-care (01) | DRG 353 ==
LOC: SED 15:08 → MOC 19:35 → OBSVTOIN 19:35 → INTOOBSV 19:35 → MOC 22:02
PROVIDERS: ADMIT Hospitalist; ATTEND Hospitalist
PROC: 0DB68ZX Excision of Stomach, Via Natural or Artificial Opening Endoscopic, Diagnostic (ICD-10-PCS; 2017-01-16)
PROC: 3E1M39Z Irrigation of Peritoneal Cavity using Dialysate, Percutaneous Approach (ICD-10-PCS; principal; 2017-01-16 15:00)
PROC: 0WQF0ZZ Repair Abdominal Wall, Open Approach (ICD-10-PCS; 2017-01-18)
PROC: 0WJG4ZZ Inspection of Peritoneal Cavity, Percutaneous Endoscopic Approach (ICD-10-PCS; 2017-01-18)
DX: K45.8 Other specified abdominal hernia without obstruction or gangrene (principal); N18.6 End stage renal disease; I12.0 Hypertensive chronic kidney disease with stage 5 chronic kidney disease or end stage renal disease; F11.20 Opioid dependence, uncomplicated; Z99.2 Dependence on renal dialysis; N25.0 Renal osteodystrophy; K29.60 Other gastritis without bleeding; Z98.84 Bariatric surgery status; E11.40 Type 2 diabetes mellitus with diabetic neuropathy, unspecified; Z87.891 Personal history of nicotine dependence; E83.51 Hypocalcemia; D63.1 Anemia in chronic kidney disease; E11.21 Type 2 diabetes mellitus with diabetic nephropathy; Z53.31 Laparoscopic surgical procedure converted to open procedure; G89.29 Other chronic pain; M54.9 Dorsalgia, unspecified; B96.81 Helicobacter pylori [H. pylori] as the cause of diseases classified elsewhere